=== PATIENT | male | born 1960 | race Two or more races ===

== ENCOUNTER 2018-12-11 13:19 | Inpatient (IN) | payer OTHER ==
[~2018-12-11] VITALS: Ht 170.2 cm; Wt 88.1 kg
[~2018-12-11 13:19] MED LIST: AMLODIPINE BESYL5 MG ORAL; LIPITOR20 MG ORAL; NKM; PROTONIX40 MG ORAL; VITAMIN B-1100 MG ORAL
[2018-12-11 13:24] VITALS: BP 151/84
--- NOTE | 2018-12-11 13:24 | NUR ---
ED Nurse Note: Patient walked into ED accompanied by spouse c/o upper abdominal pain for the past 3 days, patient states that hes had atleast 3 episodes of vomitting, states that it might be gas. patient is alert and oriented x4, EKG showed sinus tachycardia at 115 per minute, Labs sent down, IV 20 gauge started on left AC gauge, patient was also given oral contrast
[2018-12-11 13:30] VITALS: BP 142/84
[2018-12-11] MEDS ORDERED: DiphenhydrAMINE 50mg/ml Inj IVP ONE (13:45)
[2018-12-11] MEDS ORDERED: Isovue-300 100ml vial INJ PRN (13:45)
[2018-12-11] MEDS ORDERED: Metoclopramide 10mg/2ml Inj IVP ONE (13:45)
--- NOTE | 2018-12-11 13:51 | Emergency Room Report ---
History of Present Illness General Chief Complaint: Abdominal Pain Source: Patient (Blayne Thomas MD) Present Illness HPI The patient presents with several weeks of abdominal pain and distention. This started with a bout of constipation several weeks ago. It finally resolved with prune juice. From straining there was a little bit of blood around the stool. He said he stopped eating solid food and his belly seemed to improve. He has lost weight. He started eating again there was more abdominal distention. Right now the pain is 6/10 when he lays down. It is worse when sitting or standing. 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 His liver is large and might have steatosis. He did not have an official reading. The patient denies any medical problems. He has not seen a doctor for a while. He does drink alcohol and his last drink was yesterday. Patient denies chest pain. He has had a nonproductive cough which seemed to improve about a week ago. Admitted 2014 for malignant HTN and alcoholism. 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 Hx Cancer: No Hx Gastrointestinal Problems: No Hx Neurological Problems: No (Blayne Thomas MD) Review of Systems All Other Systems: negative except mentioned in HPI (Blayne Thomas MD) Physical Exam Vital Signs Date Time Temp Pulse Resp B/P (MAP) Pulse Ox O2 Delivery O2 Flow Rate FiO2 12/11/18 13:22 98.4 119 20 151/84 (106) 95 Room Air Sp02 EP Interpretation: reviewed, normal General Appearance: alert, GCS 15, non-toxic, mild distress Head: normocephalic Eyes: bilateral eye normal inspection, bilateral eye PERRL, bilateral eye EOMI ENT: moist mucus membranes Neck: supple Respiratory: lungs clear, normal breath sounds Cardiovascular #1: no edema, tachycardia Cardiovascular #2: 2+ radial (R) Gastrointestinal: no mass, no guarding, no rebound, distended, tenderness - Diffuse, other - Fluid with, decreased bowel sounds Genitourinary: no CVA tenderness Musculoskeletal: back normal, gait/station normal, normal range of motion Neurologic: alert, oriented x3, motor strength/tone normal, SLR negative, other - No asterixis Psychiatric: anxious Skin: normal inspection, warm/dry (Blayne Thomas MD) Medical Decision Making Diagnostic Impression: Primary Impression: Abdominal pain Qualified Codes: R10.84 - Generalized abdominal pain Additional Impressions: Elevated lactic acid level Elevated liver enzymes Leukocytosis Qualified Codes: D72.829 - Elevated white blood cell count, unspecified UTI (urinary tract infection) Qualified Codes: N39.0 - Urinary tract infection, site not specified Ascites Qualified Codes: R18.8 - Other ascites Alcoholism ER Course The patient presents with abdominal distention and pain. Differential includes ascites, diverticulitis, bowel obstruction, pancreatitis, hepatitis, UTI amongst others. He will be evaluated with EKG, chest x-ray and CT of the abdomen and pelvis with contrast. He is tachycardic at this time and appears intravascularly volume depleted. This may be in part due to withdrawal. EKG without injury. Chest x-ray no infiltrates however nodularity at the right middle lobe. Labs with elevated white count. Also abnormal liver function tests. INR is normal. Elevated lactic acid. Patient with transient hypoxia after Ativan however awakened and oxygen saturation remained normal. CT scan was ordered and was pending. Patient signed out to Dr. Rodriguez. I discussed the need for a low threshold for starting antibiotics. Laboratory Tests Test 12/11/18 13:26 12/11/18 13:59 12/11/18 15:05 12/11/18 21:31 Urine Color Yellow Urine Appearance Very cloudy Urine pH 5 (4.5-8.0) Urine Specific [place] 1.025 (1.005-1.035) Urine Protein 2+ (NEGATIVE) H Urine Glucose (UA) Negative (NEGATIVE) Urine Ketones 2+ (NEGATIVE) H Urine Blood 2+ (NEGATIVE) H Urine Nitrite Negative (NEGATIVE) Urine Bilirubin 2+ (NEGATIVE) H Urine Ictotest Negative (NEGATIVE) Urine Urobilinogen 12 MG/DL (0.0-1.0) H Urine Leukocyte Esterase 1+ (NEGATIVE) H Urine RBC 2-4 /HPF (0 - 0) H Urine WBC 2-4 /HPF (0 - 0) Urine Squamous Epithelial Cells Few /LPF (NONE/OCC) Urine Amorphous Sediment Many /LPF (NONE) H Urine Bacteria Many /HPF (NONE) H Urine Opiates Screen Negative (NEGATIVE) Urine Barbiturates Screen Negative (NEGATIVE) Phencyclidine (PCP) Screen Negative (NEGATIVE) Urine Amphetamines Screen Negative (NEGATIVE) Urine Benzodiazepines Screen Negative (NEGATIVE) Urine Cocaine Screen Negative (NEGATIVE) Urine Marijuana (THC) Screen Negative (NEGATIVE) White Blood Count 12.6 K/UL (4.8-10.8) H Red Blood Count 3.48 M/UL (4.70-6.10) L Hemoglobin 11.9 G/DL (14.2-18.0) L Hematocrit 35.6 % (42.0-52.0) L Mean Corpuscular Volume 102 FL (80-99) H Mean Corpuscular Hemoglobin 34.2 PG (27.0-31.0) H Mean Corpuscular Hemoglobin Concent 33.5 G/DL (32.0-36.0) Red Cell Distribution Width 12.8 % (11.6-14.8) Platelet Count 320 K/UL (150-450) Mean Platelet Volume 9.6 FL (6.5-10.1) Neutrophils (%) (Auto) 83.0 % (45.0-75.0) H Lymphocytes (%) (Auto) 7.3 % (20.0-45.0) L Monocytes (%) (Auto) 8.8 % (1.0-10.0) Eosinophils (%) (Auto) 0.1 % (0.0-3.0) Basophils (%) (Auto) 0.7 % (0.0-2.0) Neutrophils % (Manual) Pending Lymphocytes % (Manual) Pending Platelet Estimate Pending Platelet Morphology Pending Prothrombin Time 12.7 SEC (9.30-11.50) H Prothrombin Time INR 1.2 (0.9-1.1) H PTT 32 SEC (23-33) Sodium Level 136 MMOL/L (136-145) Potassium Level 3.8 MMOL/L (3.5-5.1) Chloride Level 94 MMOL/L (98-107) L Carbon Dioxide Level 31 MMOL/L (21-32) Anion Gap 11 mmol/L (5-15) Blood Urea Nitrogen 11 mg/dL (7-18) Creatinine 0.9 MG/DL (0.55-1.30) Estimate Glomerular Filtration Rate > 60 mL/min (>60) Glucose Level 145 MG/DL (74-106) H Lactic Acid Level 2.90 mmol/L (0.4-2.0) H 2.40 mmol/L (0.66-2.22) H Calcium Level 8.9 MG/DL (8.5-10.1) Magnesium Level 1.6 MG/DL (1.8-2.4) L Total Bilirubin 1.9 MG/DL (0.2-1.0) H Pending Direct Bilirubin 1.2 MG/DL (0.0-0.3) H Aspartate Amino Transferase (AST) 123 U/L (15-37) H Alanine Aminotransferase (ALT) 24 U/L (12-78) Alkaline Phosphatase 340 U/L (46-116) H Total Creatine Kinase 25 U/L (26-308) L Troponin I 0.000 ng/mL (0.000-0.056) Total Protein 8.1 G/DL (6.4-8.2) Albumin 2.2 G/DL (3.4-5.0) L Globulin 5.9 g/dL Albumin/Globulin Ratio 0.4 (1.0-2.7) L Lipase 215 U/L (73-393) Serum Alcohol < 3 mg/dL Reticulocyte Count Pending PTT Mixing Study Pending APTT Patient/Control Mix Pending Mix PTT Incubation Time Pending Mix PTT Normal/Saline 1:1 Immediate Pending Thrombin Time Normal Plasma Pending Iron Level Pending Unsaturated Iron Binding Pending Ferritin Pending Vitamin B12 Level Pending Folate Pending Hepatitis A IgM Antibody Pending Hepatitis B Surface Antigen Pending Hepatitis B Core IgM Antibody Pending Hepatitis C Antibody Pending (Blayne Thomas MD) ER Course Hospital Course 58 yo M presents with abd pain and distension Clinical course Patient initially seen and evaluated by Dr. Thomas; please see his note for full history and physical Labs - noted leukocytosis, Hb/Hct stable, LFTS elevated, coags ok, UA + bacteria CT abdomen and pelvis - hepatosplenomegaly, ascites given abx in ED Case discussed with Dr. Carmen and he agreed to accept the patient to his service for further care and support I feel this is a highly complex case requiring extensive working including EKG/ Rhythm strip, Xray/CT/US, Blood/urine lab work, repeat exams while in ED, and administration of strong opiates/narcotics for pain control, admission to hospital or close patient follow up. Diagnosis - abd pain, elevated lactic acid level, elevated liver enzymes, leukocytosis, UTI, ascites Patient admitted to floor in serious condition Labs Test 12/11/18 13:26 12/11/18 13:59 12/11/18 15:05 Urine Color Yellow Urine Appearance Very cloudy Urine pH 5 (4.5-8.0) Urine Specific [place] 1.025 (1.005-1.035) Urine Protein 2+ (NEGATIVE) Urine Glucose (UA) Negative (NEGATIVE) Urine Ketones 2+ (NEGATIVE) Urine Blood 2+ (NEGATIVE) Urine Nitrite Negative (NEGATIVE) Urine Bilirubin 2+ (NEGATIVE) Urine Ictotest Negative (NEGATIVE) Urine Urobilinogen 12 MG/DL (0.0-1.0) Urine Leukocyte Esterase 1+ (NEGATIVE) Urine RBC 2-4 /HPF (0 - 0) Urine WBC 2-4 /HPF (0 - 0) Urine Squamous Epithelial Cells Few /LPF (NONE/OCC) Urine Amorphous Sediment Many /LPF (NONE) Urine Bacteria Many /HPF (NONE) Urine Opiates Screen Negative (NEGATIVE) Urine Barbiturates Screen Negative (NEGATIVE) Phencyclidine (PCP) Screen Negative (NEGATIVE) Urine Amphetamines Screen Negative (NEGATIVE) Urine Benzodiazepines Screen Negative (NEGATIVE) Urine Cocaine Screen Negative (NEGATIVE) Urine Marijuana (THC) Screen Negative (NEGATIVE) White Blood Count 12.6 K/UL (4.8-10.8) Red Blood Count 3.48 M/UL (4.70-6.10) Hemoglobin 11.9 G/DL (14.2-18.0) Hematocrit 35.6 % (42.0-52.0) Mean Corpuscular Volume 102 FL (80-99) Mean Corpuscular Hemoglobin 34.2 PG (27.0-31.0) Mean Corpuscular Hemoglobin Concent 33.5 G/DL (32.0-36.0) Red Cell Distribution Width 12.8 % (11.6-14.8) Platelet Count 320 K/UL (150-450) Mean Platelet Volume 9.6 FL (6.5-10.1) Neutrophils (%) (Auto) 83.0 % (45.0-75.0) Lymphocytes (%) (Auto) 7.3 % (20.0-45.0) Monocytes (%) (Auto) 8.8 % (1.0-10.0) Eosinophils (%) (Auto) 0.1 % (0.0-3.0) Basophils (%) (Auto) 0.7 % (0.0-2.0) Prothrombin Time 12.7 SEC (9.30-11.50) Prothromb Time International Ratio 1.2 (0.9-1.1) Activated Partial Thromboplast Time 32 SEC (23-33) Sodium Level 136 MMOL/L (136-145) Potassium Level 3.8 MMOL/L (3.5-5.1) Chloride Level 94 MMOL/L (98-107) Carbon Dioxide Level 31 MMOL/L (21-32) Anion Gap 11 mmol/L (5-15) Blood Urea Nitrogen 11 mg/dL (7-18) Creatinine 0.9 MG/DL (0.55-1.30) Estimat Glomerular Filtration Rate > 60 mL/min (>60) Glucose Level 145 MG/DL (74-106) Lactic Acid Level 2.90 mmol/L (0.4-2.0) 2.40 mmol/L (0.66-2.22) Calcium Level 8.9 MG/DL (8.5-10.1) Magnesium Level 1.6 MG/DL (1.8-2.4) Total Bilirubin 1.9 MG/DL (0.2-1.0) Direct Bilirubin 1.2 MG/DL (0.0-0.3) Aspartate Amino Transf (AST/SGOT) 123 U/L (15-37) Alanine Aminotransferase (ALT/SGPT) 24 U/L (12-78) Alkaline Phosphatase 340 U/L (46-116) Total Creatine Kinase 25 U/L (26-308) Troponin I 0.000 ng/mL (0.000-0.056) Total Protein 8.1 G/DL (6.4-8.2) Albumin 2.2 G/DL (3.4-5.0) Globulin 5.9 g/dL Albumin/Globulin Ratio 0.4 (1.0-2.7) Lipase 215 U/L (73-393) Serum Alcohol < 3 mg/dL (James Rodriguez MD) EKG Diagnostic Results Rate: tachycardiac Rhythm: NSR ST Segments: no acute changes - lae (Blayne Thomas MD) Rhythm Strip Diag. Results EP Interpretation: yes Rhythm: no PVC's, no ectopy, other - ST (Blayne Thomas MD) Chest X-Ray Diagnostic Results Chest X-Ray Diagnostic Results : Chest X-Ray Ordered: Yes # of Views/Limited/Complete: 1 View Indication: Other EP Interpretation: Yes Interpretation: no effusion, no pneumothorax, other - R nodule Impression: Other Electronically Signed by: Electronically signed by Blayne Thomas MD (Blayne Thomas MD) Chest X-Ray Diagnostic Results : Chest X-Ray Ordered: Yes # of Views/Limited/Complete: 1 View Indication: Other EP Interpretation: Yes Interpretation: no consolidation, no effusion, no pneumothorax, no acute cardiopulmonary disease Impression: No acute disease Electronically Signed by: electronically signed by James Rodriguez MD (James Rodriguez MD) CT/MRI/US Diagnostic Results CT/MRI/US Diagnostic Results : Imaging Test Ordered: abd pelvis Impression pending - signed out (Blayne Thomas MD) CT/MRI/US Diagnostic Results : Imaging Test Ordered: CT A/P Impression Findings: There is basilar atelectasis. There is hepatosplenomegaly demonstrated. There is ascites. Gallbladder is unremarkable. Portal vein enhances normally. There is no hydronephrosis. There are small celiac nodes. Bowel gas pattern is nonobstructive. Bladder is unremarkable. Aortoiliac calcifications are present. The appendix is normal. (James Rodriguez MD) Last Vital Signs Date Time Temp Pulse Resp B/P (MAP) Pulse Ox O2 Delivery O2 Flow Rate FiO2 12/11/18 19:03 98 12/11/18 18:28 Room Air 12/11/18 17:53 98.7 20 111/72 95 Status: improved (Blayne Thomas MD) Status: improved (James Rodriguez MD) Disposition: ADMITTED INPATIENT Condition: Serious Blayne Thomas MD Dec 11, 2018 13:51 James Rodriguez MD Dec 11, 2018 17:11
[2018-12-11] MEDS ORDERED: LORazepam Inj 2mg/ml 1ml IV ONE (14:00)
[2018-12-11 14:02] LABS: APPEARANCE,URINE VERY CLOUDY; BILIRUBIN, URINE 2+ (NEGATIVE); GLUCOSE, URINE (UA) NEGATIVE (NEGATIVE); KETONES,URINE 2+ (NEGATIVE); LEUKOCYTE ESTERASE ,URINE 1+ (NEGATIVE); NITRITE,URINE NEGATIVE (NEGATIVE); PH,URINE 5 (4.5-8.0); PROTEIN,URINE 2+ (NEGATIVE); UROBILINOGEN,URINE 12 MG/DL (0.0-1.0)
[2018-12-11 14:04] LABS: COLOR,URINE YELLOW
[2018-12-11 14:18] LABS: BASOPHILS % (AUTO) 0.7 % (0.0-2.0); EOSINOPHILS % (AUTO) 0.1 % (0.0-3.0); HEMATOCRIT 35.6 % (42.0-52.0); HEMOGLOBIN 11.9 G/DL (14.2-18.0); LYMPHOCYTES % (AUTO) 7.3 % (20.0-45.0); MEAN CORPUSCULAR VOLUME 102 FL (80-99); MONOCYTES % (AUTO) 8.8 % (1.0-10.0); PLATELET COUNT 320 K/UL (150-450); RED BLOOD COUNT 3.48 M/UL (4.70-6.10); RED CELL DISTRIBUTION WIDTH 12.8 % (11.6-14.8); WHITE BLOOD COUNT 12.6 K/UL (4.8-10.8)
[2018-12-11 14:21] LABS: INR 1.2 (0.9-1.1)
--- NOTE | 2018-12-11 14:24 | Diagnostic Imaging Report ---
Indication: Dyspnea Comparison: 11/15/2012 A single view chest radiograph was obtained. Findings: Cardiomediastinal appearance is within normal limits for age. The lungs are clear. Pulmonary vascularity is appropriate. The diaphragmatic contour is smooth and costophrenic angles are sharp. No pleural effusions are identified. The bones are unremarkable. Impression: No acute findings
[2018-12-11 14:35] LABS: ANION GAP 11 mmol/L (5-15); BLOOD UREA NITROGEN 11 mg/dL (7-18); CALCIUM 8.9 MG/DL (8.5-10.1); CARBON DIOXIDE 31 MMOL/L (21-32); CHLORIDE 94 MMOL/L (98-107); CREATININE 0.9 MG/DL (0.55-1.30); POTASSIUM 3.8 MMOL/L (3.5-5.1); SODIUM 136 MMOL/L (136-145)
[2018-12-11 14:48] LABS: ALANINE AMINOTRANSFERASE 24 U/L (12-78); ALBUMIN 2.2 G/DL (3.4-5.0); ALBUMIN/GLOBULIN RATIO 0.4 (1.0-2.7); ALKALINE PHOSPHATASE 340 U/L (46-116); ASPARTATE AMINO TRANSFERASE 123 U/L (15-37); BILIRUBIN,TOTAL 1.9 MG/DL (0.2-1.0); CREATINE KINASE 25 U/L (26-308)
--- NOTE | 2018-12-11 14:53 | NUR ---
ED Nurse Note: Patient sleeping calmly in bed, at no distress at this time
[2018-12-11 15:00] LABS: BILIRUBIN,DIRECT 1.2 MG/DL (0.0-0.3)
--- NOTE | 2018-12-11 15:11 | NUR ---
ED Nurse Note: Lactic reflex sent down
[2018-12-11 16:03] VITALS: BP 116/76
--- NOTE | 2018-12-11 16:54 | Diagnostic Imaging Report ---
Indication: Abdominal pain Technique: Continuous helical transaxial imaging of the abdomen and pelvis was obtained from the lung bases to the pubic symphysis during intravenous contrast administration. Coronal 2-D reformats were also obtained. Study obtained in a Siemens sensation [address] Automatic Exposure Control was utilized. Total Dose length Product (DLP): 923.[address] Dose Index Volume (CTDIvol): 15.23 mGy Comparison: None Findings: There is basilar atelectasis. There is hepatosplenomegaly demonstrated. There is ascites. Gallbladder is unremarkable. Portal vein enhances normally. There is no hydronephrosis. There are small celiac nodes. Bowel gas pattern is nonobstructive. Bladder is unremarkable. Aortoiliac calcifications are present. The appendix is normal. IMPRESSION: Hepatosplenomegaly. Mild ascites. Atherosclerotic vascular disease Small upper abdominal lymph nodes in the celiac axis, nonspecific in nature. Mild basal atelectasis The CT scanner at [facility] is accredited by the [employer] and the scans are performed using dose optimization techniques as appropriate to a performed exam including Automatic Exposure control.
[2018-12-11] MEDS ORDERED: cefTRIAXone 1 GM in NS 55 ML IVPB ONE (17:00)
[2018-12-11 17:39] VITALS: BP 123/76
[2018-12-11] MEDS ORDERED: NKM (17:46)
--- NOTE | 2018-12-11 18:15 | NUR ---
ADMISSION NOTES: Md Nguyen made aware of admission, waiting on admitting orders.
--- NOTE | 2018-12-11 19:29 | NUR ---
HAND-OFF: Report given to Alicia NICOLE.
--- NOTE | 2018-12-11 19:30 | NUR ---
NURSE NOTES: Received bedside report from BONNIE Garcia.Patient stable,A&Ox4,ST on property assessment monitor,tolerated r/air well,NPO d/t abd pain and procedure in a morning,BS active in all quadrants,IV asymptomatic,intact,on L AC 20G running with 1/2 NS @ 50ml/hr,bed secured in a low safety position,call light within a reach,pt ambulatory stable, @ bedside,will continue to monitor and follow POC.
[2018-12-11 20:00] VITALS: BP 113/73
[2018-12-11 22:11] LABS: BILIRUBIN,TOTAL 1.4 MG/DL (0.2-1.0); FERRITIN 485 NG/ML (8-388)
[2018-12-11 22:29] LABS: % IRON SATURATION 33 % (15-50); IRON 34 ug/dL (50-175); TOTAL IRON BINDING CAPACITY 103 ug/dL (250-450)
[2018-12-11 22:42] LABS: BILIRUBIN,DIRECT 0.9 MG/DL (0.0-0.3)
[2018-12-12] VITALS: BP 106/75
[2018-12-12 04:00] VITALS: BP 119/68
--- NOTE | 2018-12-12 07:12 | NUR ---
HAND-OFF: Report given to REDDY Guy.Patient stable,sleeping.
--- NOTE | 2018-12-12 07:15 | NUR ---
NURSE NOTES: Pt received from BONNIE Vargas alert and oriented x4 with no acute s/s of distress noted. Iv site asymptomatic and patent. Bed in lowest position, call light and belongings within reach.
[2018-12-12 08:00] VITALS: BP 128/78
--- NOTE | 2018-12-12 08:39 | Consultation ---
History of Present Illness General Date patient seen: Dec 12, 2018 Chief Complaint: Abdominal Pain Present Illness Allergies: Coded Allergies: No Known Allergies (Unverified , 11/15/12) Medication History Scheduled No Known Medications* (NKM - No Known Medications*), 0 ., (Reported) No Known Medications* (NKM - No Known Medications*), 0 ., (Reported) Pantoprazole* (Protonix*), 40 MG ORAL DAILY, (Reported) Thiamine Hcl* (Vitamin B-1*), 100 MG ORAL DAILY, (Reported) Discontinued Medications Amlodipine Besylate* (Amlodipine Besylate*), 5 MG ORAL BID, (Reported) Discontinued Reason: Pt stopped taking med Atorvastatin Calcium* (Lipitor*), 20 MG ORAL BEDTIME, (Reported) Discontinued Reason: Pt stopped taking med Patient History Healthcare decision maker Becki partner Resuscitation status Full Code Advanced Directive on File No Physical Exam Last 24 Hour Vital Signs Date Time Temp Pulse Resp B/P (MAP) Pulse Ox O2 Delivery O2 Flow Rate FiO2 12/12/18 04:00 97.4 91 19 119/68 (85) 97 12/12/18 03:27 91 12/12/18 00:00 97.9 96 18 106/75 (85) 97 12/11/18 23:39 93 12/11/18 21:00 Room Air 12/11/18 20:00 98.9 98 18 113/73 (86) 98 12/11/18 19:03 98 12/11/18 18:28 Room Air 12/11/18 17:53 98.7 102 20 111/72 95 Room Air 12/11/18 17:39 98.7 102 20 123/76 95 Room Air 12/11/18 16:03 98.7 105 20 116/76 95 Room Air 12/11/18 13:30 98.4 110 20 142/84 95 Room Air 12/11/18 13:24 98.4 110 20 151/84 95 Room Air 12/11/18 13:24 119 20 Room Air 12/11/18 13:22 98.4 119 20 151/84 (106) 95 Room Air Intake and Output 12/11/18 12/12/18 18:59 06:59 Intake Total 2000 ml 540 ml Balance 2000 ml 540 ml Intake IV Total 2000 ml 540 ml # Voids 1 # Bowel Movements 1 Laboratory Tests Test 12/11/18 13:26 12/11/18 13:59 12/11/18 15:05 12/11/18 21:31 Urine Color Yellow Urine Appearance Very cloudy Urine pH 5 (4.5-8.0) Urine Specific [place] 1.025 (1.005-1.035) Urine Protein 2+ (NEGATIVE) H Urine Glucose (UA) Negative (NEGATIVE) Urine Ketones 2+ (NEGATIVE) H Urine Blood 2+ (NEGATIVE) H Urine Nitrite Negative (NEGATIVE) Urine Bilirubin 2+ (NEGATIVE) H Urine Ictotest Negative (NEGATIVE) Urine Urobilinogen 12 MG/DL (0.0-1.0) H Urine Leukocyte Esterase 1+ (NEGATIVE) H Urine RBC 2-4 /HPF (0 - 0) H Urine WBC 2-4 /HPF (0 - 0) Urine Squamous Epithelial Cells Few /LPF (NONE/OCC) Urine Amorphous Sediment Many /LPF (NONE) H Urine Bacteria Many /HPF (NONE) H Urine Opiates Screen Negative (NEGATIVE) Urine Barbiturates Screen Negative (NEGATIVE) Phencyclidine (PCP) Screen Negative (NEGATIVE) Urine Amphetamines Screen Negative (NEGATIVE) Urine Benzodiazepines Screen Negative (NEGATIVE) Urine Cocaine Screen Negative (NEGATIVE) Urine Marijuana (THC) Screen Negative (NEGATIVE) White Blood Count 12.6 K/UL (4.8-10.8) H Red Blood Count 3.48 M/UL (4.70-6.10) L Hemoglobin 11.9 G/DL (14.2-18.0) L Hematocrit 35.6 % (42.0-52.0) L Mean Corpuscular Volume 102 FL (80-99) H Mean Corpuscular Hemoglobin 34.2 PG (27.0-31.0) H Mean Corpuscular Hemoglobin Concent 33.5 G/DL (32.0-36.0) Red Cell Distribution Width 12.8 % (11.6-14.8) Platelet Count 320 K/UL (150-450) Mean Platelet Volume 9.6 FL (6.5-10.1) Neutrophils (%) (Auto) 83.0 % (45.0-75.0) H Lymphocytes (%) (Auto) 7.3 % (20.0-45.0) L Monocytes (%) (Auto) 8.8 % (1.0-10.0) Eosinophils (%) (Auto) 0.1 % (0.0-3.0) Basophils (%) (Auto) 0.7 % (0.0-2.0) Differential Total Cells Counted 100 Neutrophils % (Manual) 86 % (45-75) H Lymphocytes % (Manual) 7 % (20-45) L Monocytes % (Manual) 7 % (1-10) Eosinophils % (Manual) 0 % (0-3) Basophils % (Manual) 0 % (0-2) Band Neutrophils 0 % (0-8) Platelet Estimate Adequate Platelet Morphology Normal Red Blood Cell Morphology Normal Prothrombin Time 12.7 SEC (9.30-11.50) H Prothromb Time International Ratio 1.2 (0.9-1.1) H Activated Partial Thromboplast Time 32 SEC (23-33) Sodium Level 136 MMOL/L (136-145) Potassium Level 3.8 MMOL/L (3.5-5.1) Chloride Level 94 MMOL/L (98-107) L Carbon Dioxide Level 31 MMOL/L (21-32) Anion Gap 11 mmol/L (5-15) Blood Urea Nitrogen 11 mg/dL (7-18) Creatinine 0.9 MG/DL (0.55-1.30) Estimat Glomerular Filtration Rate > 60 mL/min (>60) Glucose Level 145 MG/DL (74-106) H Lactic Acid Level 2.90 mmol/L (0.4-2.0) H 2.40 mmol/L (0.66-2.22) H Calcium Level 8.9 MG/DL (8.5-10.1) Magnesium Level 1.6 MG/DL (1.8-2.4) L Total Bilirubin 1.9 MG/DL (0.2-1.0) H 1.4 MG/DL (0.2-1.0) H Direct Bilirubin 1.2 MG/DL (0.0-0.3) H 0.9 MG/DL (0.0-0.3) H Aspartate Amino Transf (AST/SGOT) 123 U/L (15-37) H Alanine Aminotransferase (ALT/SGPT) 24 U/L (12-78) Alkaline Phosphatase 340 U/L (46-116) H Total Creatine Kinase 25 U/L (26-308) L Troponin I 0.000 ng/mL (0.000-0.056) Total Protein 8.1 G/DL (6.4-8.2) Albumin 2.2 G/DL (3.4-5.0) L Globulin 5.9 g/dL Albumin/Globulin Ratio 0.4 (1.0-2.7) L Lipase 215 U/L (73-393) Serum Alcohol < 3 mg/dL Reticulocyte Count 1.7 % (0.5-2.0) PTT Mixing Study Pending APTT Patient/Control Mix Pending Mix PTT Incubation Time Pending Mix PTT Normal/Saline 1:1 Immediate Pending Thrombin Time Normal Plasma Pending Iron Level 34 ug/dL (50-175) L Total Iron Binding Capacity 103 ug/dL (250-450) L Percent Iron Saturation 33 % (15-50) Unsaturated Iron Binding 69 ug/dL (112-346) L Ferritin 485 NG/ML (8-388) H Vitamin B12 Level 436 PG/ML (193-986) Folate 2.8 NG/ML (8.6-58.9) L Hepatitis A IgM Antibody Pending Hepatitis B Surface Antigen Pending Hepatitis B Core IgM Antibody Pending Hepatitis C Antibody Pending Height (Feet): 5 Height (Inches): 7.00 Weight (Pounds): 194 Medications Current Medications Medications (Trade) Dose Ordered Sig/Jose Ramon Route PRN Reason Start Time Stop Time Status Last Admin Dose Admin Barium Sulfate (Readi-Cat 2) 450 ml NOW PRN ORAL Radiology Procedure 12/11/18 13:45 12/13/18 13:41 Iopamidol (Isovue-300 100ml) 100 ml NOW PRN INJ Radiology Procedure 12/11/18 13:45 12/13/18 13:44 Ondansetron HCl (Zofran) 4 mg Q6H PRN IVP Nausea & Vomiting 12/11/18 19:00 01/10/19 18:59 Sodium Chloride 1,000 ml @ 50 mls/hr Q20H IV 12/11/18 19:15 01/10/19 19:14 12/11/18 19:11 Assessment/Plan Assessment/Plan: (1) Abdominal pain (2) Ascites (3) Liver disease, cirrhosis (4) History of alcoholism seen dictated Blu Ireland Dec 12, 2018 08:39
[2018-12-12] MEDS ORDERED: traMADol 50mg tab ORAL PRN (09:00)
--- NOTE | 2018-12-12 10:36 | General Progress Note ---
Assessment/Plan Assessment/Plan: ETOH abuse folate deficiency macrocytic anemia hepatomegaly ascites abd us folate supplement EGD and colonoscopy tomorrow Subjective ROS Limited/Unobtainable: Yes Allergies: Coded Allergies: No Known Allergies (Unverified , 11/15/12) Objective Last 24 Hour Vital Signs Date Time Temp Pulse Resp B/P (MAP) Pulse Ox O2 Delivery O2 Flow Rate FiO2 12/12/18 04:00 97.4 91 19 119/68 (85) 97 12/12/18 03:27 91 12/12/18 00:00 97.9 96 18 106/75 (85) 97 12/11/18 23:39 93 12/11/18 21:00 Room Air 12/11/18 20:00 98.9 98 18 113/73 (86) 98 12/11/18 19:03 98 12/11/18 18:28 Room Air 12/11/18 17:53 98.7 102 20 111/72 95 Room Air 12/11/18 17:39 98.7 102 20 123/76 95 Room Air 12/11/18 16:03 98.7 105 20 116/76 95 Room Air 12/11/18 13:30 98.4 110 20 142/84 95 Room Air 12/11/18 13:24 98.4 110 20 151/84 95 Room Air 12/11/18 13:24 119 20 Room Air 12/11/18 13:22 98.4 119 20 151/84 (106) 95 Room Air Intake and Output 12/11/18 12/12/18 18:59 06:59 Intake Total 2000 ml 540 ml Balance 2000 ml 540 ml Intake IV Total 2000 ml 540 ml # Voids 1 # Bowel Movements 1 Laboratory Tests 12/11/18 13:26: Urine Color Yellow, Urine Appearance Very cloudy, Urine pH 5, Urine Specific [place] 1.025, Urine Protein 2+H, Urine Glucose (UA) Negative, Urine Ketones 2+H , Urine Blood 2+H, Urine Nitrite Negative, Urine Bilirubin 2+H, Urine Ictotest Negative, Urine Urobilinogen 12H, Urine Leukocyte Esterase 1+H, Urine RBC 2-4H, Urine WBC 2-4, Urine Squamous Epithelial Cells Few, Urine Amorphous Sediment ManyH, Urine Bacteria ManyH, Urine Opiates Screen Negative, Urine Barbiturates Screen Negative, Phencyclidine (PCP) Screen Negative, Urine Amphetamines Screen Negative, Urine Benzodiazepines Screen Negative, Urine Cocaine Screen Negative, Urine Marijuana (THC) Screen Negative 12/11/18 13:59: White Blood Count 12.6H, Red Blood Count 3.48L, Hemoglobin 11.9L, Hematocrit 35.6L, Mean Corpuscular Volume 102H, Mean Corpuscular Hemoglobin 34.2H, Mean Corpuscular Hemoglobin Concent 33.5, Red Cell Distribution Width 12.8, Platelet Count 320, Mean Platelet Volume 9.6, Neutrophils (%) (Auto) 83.0H, Lymphocytes ( %) (Auto) 7.3L, Monocytes (%) (Auto) 8.8, Eosinophils (%) (Auto) 0.1, Basophils (%) (Auto) 0.7, Differential Total Cells Counted 100, Neutrophils % (Manual) 86H , Lymphocytes % (Manual) 7L, Monocytes % (Manual) 7, Eosinophils % (Manual) 0, Basophils % (Manual) 0, Band Neutrophils 0, Platelet Estimate Adequate, Platelet Morphology Normal, Red Blood Cell Morphology Normal, Prothrombin Time 12.7H, Prothromb Time International Ratio 1.2H, Activated Partial Thromboplast Time 32, Sodium Level 136, Potassium Level 3.8, Chloride Level 94L, Carbon Dioxide Level 31, Anion Gap 11, Blood Urea Nitrogen 11, Creatinine 0.9, Estimat Glomerular Filtration Rate > 60, Glucose Level 145H, Lactic Acid Level 2.90H, Calcium Level 8.9, Magnesium Level 1.6L, Total Bilirubin 1.9H, Direct Bilirubin 1.2H, Aspartate Amino Transf (AST/SGOT) 123H, Alanine Aminotransferase (ALT/SGPT ) 24, Alkaline Phosphatase 340H, Total Creatine Kinase 25L, Troponin I 0.000, Total Protein 8.1, Albumin 2.2L, Globulin 5.9, Albumin/Globulin Ratio 0.4L, Lipase 215, Serum Alcohol < 3 12/11/18 15:05: Lactic Acid Level 2.40H 12/11/18 21:31: Total Bilirubin 1.4H, Direct Bilirubin 0.9H, Reticulocyte Count 1.7, PTT Mixing Study [Pending], APTT Patient/Control Mix [Pending], Mix PTT Incubation Time [ Pending], Mix PTT Normal/Saline 1:1 Immediate [Pending], Thrombin Time Normal Plasma [Pending], Iron Level 34L, Total Iron Binding Capacity 103L, Percent Iron Saturation 33, Unsaturated Iron Binding 69L, Ferritin 485H, Vitamin B12 Level 436, Folate 2.8L, Hepatitis A IgM Antibody [Pending], Hepatitis B Surface Antigen [Pending], Hepatitis B Core IgM Antibody [Pending], Hepatitis C Antibody [Pending] 12/12/18 06:51: Amylase Level 49 Height (Feet): 5 Height (Inches): 7.00 Weight (Pounds): 194 General Appearance: alert EENT: normal ENT inspection Neck: supple Cardiovascular: normal rate Respiratory/Chest: lungs clear Abdomen: normal bowel sounds, non tender, soft Extremities: non-tender Michael Trujillo MD Dec 12, 2018 10:36
--- NOTE | 2018-12-12 11:35 | NUR ---
NURSE NOTES: Pt signed consent for EGD and colonoscopy in AM, placed in chart.
--- NOTE | 2018-12-12 11:58 | NUR ---
CASE MANAGEMENT:REVIEW 58 YR OLD MALE FROM HOME TO ER CC: ABDOMINAL PAIN,ASCITES, NAUSEA AND VOMITING SI: ABDOMINAL PAIN ALCOHOLISM. ASCITES. UTI 98.5 119 20 151/84 95% ON RA WBC+12.6 H/H-11.9/35.6 MAG-1.6 TBILI+1.9 DBILI+1.2 IS:IV REGLAN IV PEPCID 1L NS BOLUS IV BENADRYL IV ATIVAN CHEST XRAY CT ABD/PELVIS : TO TELEMETRY
[2018-12-12 12:00] VITALS: BP 116/81
--- NOTE | 2018-12-12 12:36 | Diagnostic Imaging Report ---
Indication: Abnormal liver function tests Technique: Grayscale and duplex Doppler imaging of the abdomen performed. Comparison: None Findings: The liver is enlarged measuring 21 cm. There is a suggestion of mild surface nodularity which is a sign of chronic disease. These correlate clinically in this regard. Doppler interrogation of the main portal vein shows patency with hepatopedal, monophasic flow. There is no biliary ductal dilatation identified. The CBD measures 4 mm. The spleen is enlarged measuring 15 cm. There is mild ascites. Gallbladder wall is thickened. No definite stones identified. Sonographic Basurto's sign was negative per technologist. There demonstrated part of the pancreas, aorta and IVC show no definite abnormalities. Both kidneys appear unremarkable. There is no hydronephrosis. IMPRESSION: Hepatosplenomegaly. Mild surface nodularity of the liver suggestive of chronic disease. Please correlate clinically. Thickening of the gallbladder wall, nonspecific. Sonographic Basurto's is negative. Differential considerations include low protein/hypoalbuminemia, acalculus cholecystitis, hepatitis among others. Mild ascites.
--- NOTE | 2018-12-12 13:26 | NUR ---
*-* INSURANCE *-* ALL CLINICALS AND REVIEWS HAVE BEEN FAXED TO: [facility]/ DEPT S/[facility] [place]..NO FURNACE FIRER ASSIGNED AT THIS TIME...PLEASE FAX THE REVIEW & CLINICAL P- [phone] OPT- 3 F- [phone]...REVIEW/CLINICAL
[2018-12-12 16:00] VITALS: BP 113/80
[2018-12-12] MEDS ORDERED: Nulytely 4L ORAL SCH (16:00)
--- NOTE | 2018-12-12 16:15 | Consultation ---
DATE OF CONSULTATION: 12/12/2018 PAIN MANAGEMENT CONSULTATION CONSULTING PHYSICIAN: Paige Paz M.D. REFERRING PHYSICIAN: Greer Carmen M.D. PHYSICIAN INTERMODAL OWNER OPERATOR TRUCK DRIVER: Alphonso Richardson CHIEF COMPLAINT: Abdominal pain. HISTORY OF PRESENT ILLNESS: This is a 58-year-old male, who is being seen on the telemetry floor of [facility] for initial pain management consultation. The patient was admitted under the care of Dr. Carmen with complaints of abdominal pain for the past 4 days. It is off and on pain. It is acute, rating 6/10, describing the pain as a pressure, increased with movement and reports that rest has allowed him to relieve his pain. He stated he had a bout of constipation a few weeks ago, now has abdominal distention. Has a history of hypertension and alcoholism. Upon admission, had an abdominal CT showing mild ascites, hepatosplenomegaly, and is reporting mild pain. Waiting to be seen by the high raw sugar boiler. We were consulted so that the patient would have adequate pain control while here in the hospital. PAST MEDICAL HISTORY: Hypertension. PAST SURGICAL HISTORY: Denies. SOCIAL HISTORY: History of smoking. Drinks alcohol. Denies IV drug abuse. ALLERGIES: No known drug allergies. MEDICATIONS: Denies taking medications as an outpatient. REVIEW OF SYSTEMS: Denies rash, fever, chills, sweating, dizziness, drowsiness, blurred vision, sore throat, or change in weight. No shortness of breath or chest pain. No nausea, vomiting, diarrhea, or blood in the stool or urine. No dysuria. He is complaining of abdominal pain. PHYSICAL EXAMINATION: GENERAL: Alert, awake, oriented. VITAL SIGNS: Blood pressure 119/68, heart rate is 91, oxygen saturation 97%, respiratory rate 19, temperature 97.4 degrees Fahrenheit. HEENT: PERRLA. NECK: Range of motion is full in all directions. No tenderness. No adenopathy. LUNGS: Decreased breath sounds bilaterally. HEART: S1 and S2 regular. ABDOMEN: Distended with tenderness to palpation. BACK: Range of motion is decreased in flexion, extension. EXTREMITIES: Upper and lower extremity range of motion full in all directions. No cyanosis. No clubbing. No edema. Sensory is intact. Reflexes are not obtainable. No adenopathy. ASSESSMENT AND PLAN: This is a 58-year-old male with abdominal pain, ascites, liver disease, possible cirrhosis, history to alcoholism. The patient will be started on tramadol 25 mg tablet every 4 hours as needed for severe pain. He will be seen by high raw sugar boiler. The patient was discussed with Dr. Paz and he concurred. We will follow the patient. Thank you very much for the courtesy of this consultation. Paige Paz M.D. KATHIA Richardson DR: ERIK JOB#: [id number] CC:
--- NOTE | 2018-12-12 16:18 | Consultation ---
History of Present Illness General Chief Complaint: Abdominal Pain Present Illness Allergies: Coded Allergies: No Known Allergies (Unverified , 11/15/12) Medication History Scheduled No Known Medications* (NKM - No Known Medications*), 0 ., (Reported) No Known Medications* (NKM - No Known Medications*), 0 ., (Reported) Pantoprazole* (Protonix*), 40 MG ORAL DAILY, (Reported) Thiamine Hcl* (Vitamin B-1*), 100 MG ORAL DAILY, (Reported) Discontinued Medications Amlodipine Besylate* (Amlodipine Besylate*), 5 MG ORAL BID, (Reported) Discontinued Reason: Pt stopped taking med Atorvastatin Calcium* (Lipitor*), 20 MG ORAL BEDTIME, (Reported) Discontinued Reason: Pt stopped taking med Patient History Healthcare decision maker [place] Resuscitation status Full Code Advanced Directive on File No Physical Exam Last 24 Hour Vital Signs Date Time Temp Pulse Resp B/P (MAP) Pulse Ox O2 Delivery O2 Flow Rate FiO2 12/12/18 12:00 98.4 100 20 116/81 (93) 95 12/12/18 12:00 97 12/12/18 09:00 Room Air 12/12/18 08:00 91 12/12/18 08:00 98.3 106 18 128/78 (95) 96 12/12/18 04:00 97.4 91 19 119/68 (85) 97 12/12/18 03:27 91 12/12/18 00:00 97.9 96 18 106/75 (85) 97 12/11/18 23:39 93 12/11/18 21:00 Room Air 12/11/18 20:00 98.9 98 18 113/73 (86) 98 12/11/18 19:03 98 12/11/18 18:28 Room Air 12/11/18 17:53 98.7 102 20 111/72 95 Room Air 12/11/18 17:39 98.7 102 20 123/76 95 Room Air Intake and Output 12/11/18 12/12/18 19:00 07:00 Intake Total 2000 ml 590 ml Balance 2000 ml 590 ml Intake IV Total 2000 ml 590 ml # Voids 1 # Bowel Movements 1 Laboratory Tests Test 12/11/18 21:31 12/12/18 06:51 Reticulocyte Count 1.7 % (0.5-2.0) PTT Mixing Study Pending APTT Patient/Control Mix Pending Mix PTT Incubation Time Pending Mix PTT Normal/Saline 1:1 Immediate Pending Thrombin Time Normal Plasma Pending Iron Level 34 ug/dL (50-175) L Total Iron Binding Capacity 103 ug/dL (250-450) L Percent Iron Saturation 33 % (15-50) Unsaturated Iron Binding 69 ug/dL (112-346) L Ferritin 485 NG/ML (8-388) H Total Bilirubin 1.4 MG/DL (0.2-1.0) H Direct Bilirubin 0.9 MG/DL (0.0-0.3) H Vitamin B12 Level 436 PG/ML (193-986) Folate 2.8 NG/ML (8.6-58.9) L Hepatitis A IgM Antibody Pending Hepatitis B Surface Antigen Pending Hepatitis B Core IgM Antibody Pending Hepatitis C Antibody Pending Amylase Level 49 U/L (25-115) Height (Feet): 5 Height (Inches): 7.00 Weight (Pounds): 194 Medications Current Medications Medications (Trade) Dose Ordered Sig/Jose Ramon Route PRN Reason Start Time Stop Time Status Last Admin Dose Admin Barium Sulfate (Readi-Cat 2) 450 ml NOW PRN ORAL Radiology Procedure 12/11/18 13:45 12/13/18 13:41 Ceftriaxone Sodium 1 gm/ Dextrose 55 ml @ 110 mls/hr Q24H IVPB 12/13/18 17:00 12/20/18 16:59 Dextrose/ Electrolytes 1,000 ml @ 75 mls/hr [id number] IV 12/12/18 16:00 01/11/19 15:59 Folic Acid (Folate) 1 mg DAILY ORAL 12/13/18 09:00 01/12/19 08:59 Iopamidol (Isovue-300 100ml) 100 ml NOW PRN INJ Radiology Procedure 12/11/18 13:45 12/13/18 13:44 Ondansetron HCl (Zofran) 4 mg Q6H PRN IVP Nausea & Vomiting 12/11/18 19:00 01/10/19 18:59 Polyethylene Glycol/ Electrolytes (Nulytely) 4,000 ml ONCE ORAL 12/12/18 16:00 12/12/18 23:59 Sodium Chloride 1,000 ml @ 50 mls/hr Q20H IV 12/11/18 19:15 01/10/19 19:14 12/11/18 19:11 Tramadol HCl (Ultram) 25 mg Q4H PRN ORAL severe pain 12/12/18 09:00 12/19/18 08:59 Assessment/Plan Assessment/Plan: Hematology Consult REQ MD: Greer Carmen RFC: Pancytopenia, coagulopathy DOS: 12/12/18 HPI 58y old male presents with several weeks of abdominal pain and distention. This started with a bout of constipation several weeks ago. It finally resolved with prune juice. From straining there was a little bit of blood around the stool. He said he stopped eating solid food and his belly seemed to improve. He has lost weight. He started eating again there was more abdominal distention. Right now the pain is 6/10 when he lays down. It is worse when sitting or standing. 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 He performed ultrasound on himself and is not sure if he saw fluid. His liver is large and might have steatosis. He did not have an official reading. The patient denies any medical problems. He has not seen a doctor for a while. He does drink alcohol and his last drink was yesterday. Patient denies chest pain. He has had a nonproductive cough which seemed to improve about a week ago. 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 Hx Cancer: No Hx Gastrointestinal Problems: No Hx Neurological Problems: No Review of Systems: negative except mentioned in HPI PE Last 24 Hour Vital Signs Date Time Temp Pulse Resp B/P (MAP) Pulse Ox O2 Delivery O2 Flow Rate FiO2 12/12/18 12:00 98.4 100 20 116/81 (93) 95 12/12/18 12:00 97 12/12/18 09:00 Room Air 12/12/18 08:00 91 12/12/18 08:00 98.3 106 18 128/78 (95) 96 6/26/19 04:00 97.4 91 19 119/68 (85) 97 12/12/18 03:27 91 12/12/18 00:00 97.9 96 18 106/75 (85) 97 12/11/18 23:39 93 12/11/18 21:00 Room Air 12/11/18 20:00 98.9 98 18 113/73 (86) 98 12/11/18 19:03 98 12/11/18 18:28 Room Air 12/11/18 17:53 98.7 102 20 111/72 95 Room Air 12/11/18 17:39 98.7 102 20 123/76 95 Room Air General Appearance: alert, GCS 15, non-toxic Head: normocephalic Eyes: bilateral eye normal inspection, bilateral eye PERRl ENT: moist mucus membranes Neck: supple Respiratory: lungs clear, normal breath sounds Cardiovascular no edema, tachycardia Gastrointestinal: no mass, no guarding, no rebound, distended, tenderness - Diffuse, other - Fluid with, decreased bowel sounds Genitourinary: no CVA tenderness Musculoskeletal: back normal, gait/station normal, normal range of motion Neurologic: alert, oriented x3, motor strength/tone normal, SLR negative, other - No asterixis Psychiatric: anxious Skin: normal inspection Laboratory Tests Test 12/11/18 13:26 12/11/18 13:59 12/11/18 15:05 12/11/18 21:31 Urine Color Yellow Urine Appearance Very cloudy Urine pH 5 (4.5-8.0) Urine Specific [place] 1.025 (1.005-1.035) Urine Protein 2+ (NEGATIVE) H Urine Glucose (UA) Negative (NEGATIVE) Urine Ketones 2+ (NEGATIVE) H Urine Blood 2+ (NEGATIVE) H Urine Nitrite Negative (NEGATIVE) Urine Bilirubin 2+ (NEGATIVE) H Urine Ictotest Negative (NEGATIVE) Urine Urobilinogen 12 MG/DL (0.0-1.0) H Urine Leukocyte Esterase 1+ (NEGATIVE) H Urine RBC 2-4 /HPF (0 - 0) H Urine WBC 2-4 /HPF (0 - 0) Urine Squamous Epithelial Cells Few /LPF (NONE/OCC) Urine Amorphous Sediment Many /LPF (NONE) H Urine Bacteria Many /HPF (NONE) H Urine Opiates Screen Negative (NEGATIVE) Urine Barbiturates Screen Negative (NEGATIVE) Phencyclidine (PCP) Screen Negative (NEGATIVE) Urine Amphetamines Screen Negative (NEGATIVE) Urine Benzodiazepines Screen Negative (NEGATIVE) Urine Cocaine Screen Negative (NEGATIVE) Urine Marijuana (THC) Screen Negative (NEGATIVE) White Blood Count 12.6 K/UL (4.8-10.8) H Red Blood Count 3.48 M/UL (4.70-6.10) L Hemoglobin 11.9 G/DL (14.2-18.0) L Hematocrit 35.6 % (42.0-52.0) L Mean Corpuscular Volume 102 FL (80-99) H Mean Corpuscular Hemoglobin 34.2 PG (27.0-31.0) H Mean Corpuscular Hemoglobin Concent 33.5 G/DL (32.0-36.0) Red Cell Distribution Width 12.8 % (11.6-14.8) Platelet Count 320 K/UL (150-450) Mean Platelet Volume 9.6 FL (6.5-10.1) Neutrophils (%) (Auto) 83.0 % (45.0-75.0) H Lymphocytes (%) (Auto) 7.3 % (20.0-45.0) L Monocytes (%) (Auto) 8.8 % (1.0-10.0) Eosinophils (%) (Auto) 0.1 % (0.0-3.0) Basophils (%) (Auto) 0.7 % (0.0-2.0) Neutrophils % (Manual) Pending Lymphocytes % (Manual) Pending Platelet Estimate Pending Platelet Morphology Pending Prothrombin Time 12.7 SEC (9.30-11.50) H Prothrombin Time INR 1.2 (0.9-1.1) H PTT 32 SEC (23-33) Sodium Level 136 MMOL/L (136-145) Potassium Level 3.8 MMOL/L (3.5-5.1) Chloride Level 94 MMOL/L (98-107) L Carbon Dioxide Level 31 MMOL/L (21-32) Anion Gap 11 mmol/L (5-15) Blood Urea Nitrogen 11 mg/dL (7-18) Creatinine 0.9 MG/DL (0.55-1.30) Estimate Glomerular Filtration Rate > 60 mL/min (>60) Glucose Level 145 MG/DL (74-106) H Lactic Acid Level 2.90 mmol/L (0.4-2.0) H 2.40 mmol/L (0.66-2.22) H Calcium Level 8.9 MG/DL (8.5-10.1) Magnesium Level 1.6 MG/DL (1.8-2.4) L Total Bilirubin 1.9 MG/DL (0.2-1.0) H Pending Direct Bilirubin 1.2 MG/DL (0.0-0.3) H Aspartate Amino Transferase (AST) 123 U/L (15-37) H Alanine Aminotransferase (ALT) 24 U/L (12-78) Alkaline Phosphatase 340 U/L (46-116) H Total Creatine Kinase 25 U/L (26-308) L Troponin I 0.000 ng/mL (0.000-0.056) Total Protein 8.1 G/DL (6.4-8.2) Albumin 2.2 G/DL (3.4-5.0) L Globulin 5.9 g/dL Albumin/Globulin Ratio 0.4 (1.0-2.7) L Lipase 215 U/L (73-393) Serum Alcohol < 3 mg/dL Reticulocyte Count Pending PTT Mixing Study Pending APTT Patient/Control Mix Pending Mix PTT Incubation Time Pending Mix PTT Normal/Saline 1:1 Immediate Pending Thrombin Time Normal Plasma Pending Iron Level Pending Unsaturated Iron Binding Pending Ferritin Pending Vitamin B12 Level Pending Folate Pending Hepatitis A IgM Antibody Pending Hepatitis B Surface Antigen Pending Hepatitis B Core IgM Antibody Pending Hepatitis C Antibody Pending Labs Test 12/11/18 13:26 12/11/18 13:59 12/11/18 15:05 Urine Color Yellow Urine Appearance Very cloudy Urine pH 5 (4.5-8.0) Urine Specific [place] 1.025 (1.005-1.035) Urine Protein 2+ (NEGATIVE) Urine Glucose (UA) Negative (NEGATIVE) Urine Ketones 2+ (NEGATIVE) Urine Blood 2+ (NEGATIVE) Urine Nitrite Negative (NEGATIVE) Urine Bilirubin 2+ (NEGATIVE) Urine Ictotest Negative (NEGATIVE) Urine Urobilinogen 12 MG/DL (0.0-1.0) Urine Leukocyte Esterase 1+ (NEGATIVE) Urine RBC 2-4 /HPF (0 - 0) Urine WBC 2-4 /HPF (0 - 0) Urine Squamous Epithelial Cells Few /LPF (NONE/OCC) Urine Amorphous Sediment Many /LPF (NONE) Urine Bacteria Many /HPF (NONE) Urine Opiates Screen Negative (NEGATIVE) Urine Barbiturates Screen Negative (NEGATIVE) Phencyclidine (PCP) Screen Negative (NEGATIVE) Urine Amphetamines Screen Negative (NEGATIVE) Urine Benzodiazepines Screen Negative (NEGATIVE) Urine Cocaine Screen Negative (NEGATIVE) Urine Marijuana (THC) Screen Negative (NEGATIVE) White Blood Count 12.6 K/UL (4.8-10.8) Red Blood Count 3.48 M/UL (4.70-6.10) Hemoglobin 11.9 G/DL (14.2-18.0) Hematocrit 35.6 % (42.0-52.0) Mean Corpuscular Volume 102 FL (80-99) Mean Corpuscular Hemoglobin 34.2 PG (27.0-31.0) Mean Corpuscular Hemoglobin Concent 33.5 G/DL (32.0-36.0) Red Cell Distribution Width 12.8 % (11.6-14.8) Platelet Count 320 K/UL (150-450) Mean Platelet Volume 9.6 FL (6.5-10.1) Neutrophils (%) (Auto) 83.0 % (45.0-75.0) Lymphocytes (%) (Auto) 7.3 % (20.0-45.0) Monocytes (%) (Auto) 8.8 % (1.0-10.0) Eosinophils (%) (Auto) 0.1 % (0.0-3.0) Basophils (%) (Auto) 0.7 % (0.0-2.0) Prothrombin Time 12.7 SEC (9.30-11.50) Prothromb Time International Ratio 1.2 (0.9-1.1) Activated Partial Thromboplast Time 32 SEC (23-33) Sodium Level 136 MMOL/L (136-145) Potassium Level 3.8 MMOL/L (3.5-5.1) Chloride Level 94 MMOL/L (98-107) Carbon Dioxide Level 31 MMOL/L (21-32) Anion Gap 11 mmol/L (5-15) Blood Urea Nitrogen 11 mg/dL (7-18) Creatinine 0.9 MG/DL (0.55-1.30) Estimat Glomerular Filtration Rate > 60 mL/min (>60) Glucose Level 145 MG/DL (74-106) Lactic Acid Level 2.90 mmol/L (0.4-2.0) 2.40 mmol/L (0.66-2.22) Calcium Level 8.9 MG/DL (8.5-10.1) Magnesium Level 1.6 MG/DL (1.8-2.4) Total Bilirubin 1.9 MG/DL (0.2-1.0) Direct Bilirubin 1.2 MG/DL (0.0-0.3) Aspartate Amino Transf (AST/SGOT) 123 U/L (15-37) Alanine Aminotransferase (ALT/SGPT) 24 U/L (12-78) Alkaline Phosphatase 340 U/L (46-116) Total Creatine Kinase 25 U/L (26-308) Troponin I 0.000 ng/mL (0.000-0.056) Total Protein 8.1 G/DL (6.4-8.2) Albumin 2.2 G/DL (3.4-5.0) Globulin 5.9 g/dL Albumin/Globulin Ratio 0.4 (1.0-2.7) Lipase 215 U/L (73-393) Serum Alcohol < 3 mg/dL Assessment and Recs: # Pancytopenia -- multiple etiologies could be related to underlying liver disease, medication-induced, infection versus viral syndrome is very likely due to cirrhosis --> peripheral smear has been ordered and does not show significant abnormalities --> Medications have been reviewed --> Continue to monitor for improvement, trend cbc --> Hep panel and HIV have been ordered --> US abd ordered to r/o cirrhosis and hepatosplenomegaly as well as liver cirrhosis/hsm --> reverse isolation if ANC is <2000 --> Give neupogen if ANC <1000 --> Transfuse if hgb <7, with 1 unit prbc # Anemia of chronic disease (or of iron deficiency) due to underlying chronic medical issues, multifactorial --> Anemia workup has been ordered, rule out gi bleed --> No evidence of hemolysis is noted, peripheral smear has been reviewed. --> Hgb goal >7. Transfuse prn. --> Epogen or iron at this time is not particularly indicated --> Medications have been reviewed # Anemia of folic acid deficiency --> folic acid 1mg po daily noted # Abdominal pain --> likely due to cirrhosis/hsm # Elevated liver enzymes due to liver disease --> liver results reviewed --> monitor for withdrawal # UTI (urinary tract infection) --> requires abx prn # Ascites due to cirrhosis # Alcoholism The timing of this note does not necessarily reflect the time of the patient was seen. GREATLY APPRECIATE CONSULTATION. Slade Morris MD Dec 12, 2018 16:18
[2018-12-12] MEDS: D5 1/2NS w/KCl 20mEq 1,000 ML IV SCH (17:53)
--- NOTE | 2018-12-12 18:45 | Consultation ---
DATE OF CONSULTATION: 12/12/2018 INFECTIOUS DISEASE CONSULT CONSULTING PHYSICIAN: Tomi Solitario M.D. PRIMARY ATTENDING: Greer Carmen M.D. REASON FOR CONSULT: Sepsis. HISTORY OF PRESENT ILLNESS: This 58-year-old white male admitted yesterday complaining of abdominal pain and distention. The patient has similar pain a while ago that was associated with constipation. He has also history of alcoholism. At the time of admission, has tachycardia of 119, leukocytosis of 12.6. PAST MEDICAL HISTORY: Hypertension, alcoholism. ALLERGIES: No known drug allergies. MEDICATIONS: polyethylene glycol, Ultram, sodium chloride. Got a dose of ceftriaxone in the ER. SOCIAL HISTORY: . He is originated from [place]. 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 Has history of rare smoking. Has history of alcohol abuse. REVIEW OF SYSTEMS: No fever. No chills. No coughing. No chest pain. Abdominal distention and pain. Has generalized weakness. The patient thinks he was losing muscle. Gets tired after 5 or 6 flight of steps. PHYSICAL EXAMINATION: VITAL SIGNS: Temperature 98.3, pulse 106, blood pressure 128/78. GENERAL APPEARANCE: Well developed. HEAD AND NECK: [place] conjunctivae. HEART: Tachycardic. LUNGS: Clear. ABDOMEN: Distended. Tender to touch. EXTREMITIES: Has no edema. NEUROLOGIC: Awake, alert, oriented x3. LABORATORY DATA: WBC 12.6, hemoglobin 11.9, hematocrit 35.6, platelets 220. Sodium 136, potassium 3.8, chloride 94, bicarbonate 31, BUN 11, creatinine 0.9, glucose 145. Total bilirubin 1.9, direct bilirubin 1.2, AST 123, ALT 24, alkaline phosphatase 340. Hepatitis serology is pending. IMPRESSION: Sepsis with leukocytosis and tachycardia. So far, urine culture is negative. Chest x-ray was also negative. Source may be intraabdominal. He has hepatosplenomegaly, mild ascites, mild anemia, hypertension, and alcohol abuse. RECOMMENDATION: We will continue with Rocephin. The patient will have EGD and colonoscopy and will have abdominal ultrasound. At the end of my exam, I thank Dr. Carmen for involving me in the care of this patient. Tomi Solitario M.D. DR: SIERRA JOB#: [id number] CC: JAXON
--- NOTE | 2018-12-12 19:05 | NUR ---
CASE MANAGEMENT: REVIEW 58Y/M PRESENTED TO ED FROM HOME CC: ABD PAIN . N/V X3DAYS SI: SEPSIS T 98.4 HR 119 RR 20 BP 151/84 SAT 95% ROOM AIR WBC 12.6 LACTIC ACID 2.90 IS: CEFTRIAXONE IV X1 NS IVF BOLUS X1 REGLAN IV X1 ATIVAN IV X1 PEPCID IV X1 BENADRYL IV X1 NPO PATIENT ADMITTED TO TELEMETRY UNIT 12/11/2018 DCP: PATIENT IS FROM HOME
--- NOTE | 2018-12-12 19:45 | NUR ---
HAND-OFF: Report given to BONNIE Arcos. No acute s/s of distress noted.
--- NOTE | 2018-12-12 19:47 | NUR ---
NURSE NOTES: Received patient from Dung NICOLE. Patient is stable, in bed with no signs of distress. Patient is on NPO for AM procedures. Patient is on Room air and tolerating well. Bed is at its lowest position, call light in reach and X3 bed rails up.
[2018-12-12 20:00] VITALS: BP 120/89
[2018-12-13] VITALS (8 sets, daily range): BP systolic 101–129; BP diastolic 63–90
--- NOTE | 2018-12-13 01:28 | NUR ---
NURSE NOTES: Patient refuses to keep IV fluids running due to frequent bathroom visits. Will continue to encourage IV fluids.
--- NOTE | 2018-12-13 04:15 | History and Physical Report ---
DATE OF ADMISSION: 12/11/2018 HISTORY OF PRESENT ILLNESS: The patient is here for abdominal pain and distention, elevated LFTs. CT showed ascites, hepatomegaly, possible cirrhosis. The patient has history of alcohol abuse. The patient states that he has also been having constipation, abdominal pain, and distention. The patient also has abdominal pain and constipation going on for four days, has history of vomiting. Denies rectal bleeding. He has history of vomiting as well. Denies rectal bleeding. Denies diarrhea. PAST MEDICAL HISTORY: Significant for cirrhosis, GERD, alcohol abuse, hyperlipidemia, fatty liver. PAST SURGICAL HISTORY: None. ALLERGIES: No known allergies. MEDICATIONS: Protonix p.r.n. FAMILY HISTORY: Noncontributory. SOCIAL HISTORY: History of alcohol abuse. History of smoking. Denies history of drug abuse. Lives with girlfriend at home. REVIEW OF SYSTEMS: HEENT: Denies headaches. RESPIRATORY: Denies shortness of breath. Denies cough. CARDIOVASCULAR: Denies chest pain or orthopnea. GASTROINTESTINAL: Reports abdominal pain, distention, and constipation. Vomiting for four days. EXTREMITIES: Denies pain in the lower extremities. CENTRAL NERVOUS SYSTEM: No change in vision or speech pattern, however, is a poor historian. PHYSICAL EXAMINATION: VITAL SIGNS: Temperature 97.4, pulse 91, blood pressure 119/68. HEENT: PERRLA. NECK: Supple. No lymphadenopathy. CHEST: Clear to auscultation. CARDIOVASCULAR: Regular rate and rhythm. No murmurs or extra sounds. GASTROINTESTINAL: Distended, but nontender. Positive bowel sounds. EXTREMITIES: A 1+ edema. Reflexes equal both sides. Move all four extremities. LABORATORY AND DIAGNOSTIC DATA: WBC of 12.6, hemoglobin 11.9, platelets 320. Lactic acid 2.9. Iron of 34. ASSESSMENT: 1. Abdominal pain. 2. History of cirrhosis. 3. Alcohol abuse. 4. Constipation . 5. Vomiting. I have asked Dr. Trujillo, Dr. Gonzalez, Dr. Tomi Solitario, Dr. Paz, and Dr. Slade Morris to see the patient to rule out any cancer as well as for the management of his cirrhosis as well as rule out any infectious etiology. dehydration. Ali Carlos Carmen DR: Aide JOB#: [id number] CC:
[2018-12-13] MEDS: D5 1/2NS w/KCl 20mEq 1,000 ML IV SCH (05:27)
[2018-12-13 07:07] LABS: BASOPHILS % (AUTO) 0.9 % (0.0-2.0); EOSINOPHILS % (AUTO) 0.5 % (0.0-3.0); HEMATOCRIT 29.7 % (42.0-52.0); HEMOGLOBIN 9.9 G/DL (14.2-18.0); LYMPHOCYTES % (AUTO) 12.7 % (20.0-45.0); MEAN CORPUSCULAR VOLUME 103 FL (80-99); MONOCYTES % (AUTO) 7.3 % (1.0-10.0); NEUTROPHILS % (AUTO) 78.5 % (45.0-75.0); PLATELET COUNT 250 K/UL (150-450); RED CELL DISTRIBUTION WIDTH 12.7 % (11.6-14.8); WHITE BLOOD COUNT 13.2 K/UL (4.8-10.8)
[2018-12-13] MEDS ORDERED: NS 500ML IVPB ONE (07:15)
[2018-12-13] MEDS ORDERED: Propofol 200mg/20ml IV ONE (07:30)
[2018-12-13] MEDS ORDERED: Lidocaine 1% MPF 10mg/ml 5ml ONE (07:30)
--- NOTE | 2018-12-13 07:30 | Pre-Procedure Note/Attestation ---
Pre-Procedure Note/Attestation Complete Prior to Procedure Procedure Narrative: esophagogastroduodenoscopy and colonoscopy Indications for Procedure Pre-Operative Diagnosis: anemia Attestation I attest that I discussed the nature of the procedure; its benefits; risks and complications; and alternatives (and the risks and benefits of such alternatives ), prior to the procedure, with the patient (or the patient's legal manufacturers representative). I attest that, if there was a reasonable possibility of needing a blood transfusion, the patient (or the patient's legal manufacturers representative) was given the [facility] standardized written summary, pursuant to the Vick Michi Blood Safety Act ([place] Health and Safety Code # 1645, as amended). I attest that I re-evaluated the patient just prior to the surgery and that there has been no change in the patient's H&P, except as documented below: Michael Trujillo MD Dec 13, 2018 07:30
[2018-12-13 07:35] LABS: ALANINE AMINOTRANSFERASE 16 U/L (12-78); ALBUMIN 1.9 G/DL (3.4-5.0); ALBUMIN/GLOBULIN RATIO 0.4 (1.0-2.7); ALKALINE PHOSPHATASE 265 U/L (46-116); ANION GAP 9 mmol/L (5-15); ASPARTATE AMINO TRANSFERASE 83 U/L (15-37); BILIRUBIN,TOTAL 1.3 MG/DL (0.2-1.0); BLOOD UREA NITROGEN 11 mg/dL (7-18); CALCIUM 7.9 MG/DL (8.5-10.1); CARBON DIOXIDE 30 MMOL/L (21-32); CHLORIDE 97 MMOL/L (98-107); CREATININE 0.8 MG/DL (0.55-1.30); POTASSIUM 3.4 MMOL/L (3.5-5.1); SODIUM 136 MMOL/L (136-145)
[2018-12-13 07:36] LABS: BILIRUBIN,DIRECT 0.8 MG/DL (0.0-0.3)
--- NOTE | 2018-12-13 07:40 | NUR ---
NURSE NOTES: Report received from BONNIE Arcos. Patient out for procedure. Room cleaned, bed made, left on lower position, brakes on. Board updated.
--- NOTE | 2018-12-13 07:45 | NUR ---
HAND-OFF: Report given to Raffaele NICOLE.
--- NOTE | 2018-12-13 07:59 | Anethesia Preoperative Eval ---
Anesthesia Pre-op PMH/ROS General Date of Evaluation: Dec 13, 2018 Time of Evaluation: 07:36 Anesthesiologist: bigg ASA Score: ASA 3 Mallampati Score Class I : Soft palate, uvula, fauces, pillars visible Class II: Soft palate, uvula, fauces visible Class III: Soft palate, base of uvula visible Class IV: Only hard plate visible Mallampati Classification: Class II Surgeon: andreas Diagnosis: abdominal pain Surgical Procedure: egd/colonoscopy Anesthesia History: none Social History: current smoker, alcohol use Family History: no anesthesia problems Allergies: Coded Allergies: No Known Allergies (Unverified , 11/15/12) Medications: see eMAR Patient NPO?: Yes Past Medical History Cardiovascular: Reports: HTN Anesthesia Pre-op Phys. Exam Physician Exam Last Vital Signs Date Time Temp Pulse Resp B/P (MAP) Pulse Ox O2 Delivery O2 Flow Rate FiO2 12/13/18 04:00 98.9 92 20 101/63 (76) 97 12/12/18 21:00 Room Air Constitutional: NAD Neurologic: CN 2-12 intact Cardiovascular: RRR Respiratory: CTA Gastrointestinal: S/NT/ND Airway Exam Mallampati Score: Class II MO: limited Neck: flexible TMD: 2fb ROM: limited Anesthesia Pre-op A/P Labs Hematology Test 12/13/18 05:55 White Blood Count 13.2 K/UL (4.8-10.8) H Red Blood Count 2.90 M/UL (4.70-6.10) L Hemoglobin 9.9 G/DL (14.2-18.0) L Hematocrit 29.7 % (42.0-52.0) L Mean Corpuscular Volume 103 FL (80-99) H Mean Corpuscular Hemoglobin 34.2 PG (27.0-31.0) H Mean Corpuscular Hemoglobin Concent 33.3 G/DL (32.0-36.0) Red Cell Distribution Width 12.7 % (11.6-14.8) Platelet Count 250 K/UL (150-450) Mean Platelet Volume 8.7 FL (6.5-10.1) Neutrophils (%) (Auto) 78.5 % (45.0-75.0) H Lymphocytes (%) (Auto) 12.7 % (20.0-45.0) L Monocytes (%) (Auto) 7.3 % (1.0-10.0) Eosinophils (%) (Auto) 0.5 % (0.0-3.0) Basophils (%) (Auto) 0.9 % (0.0-2.0) Chemistry Test 12/13/18 05:55 Sodium Level 136 MMOL/L (136-145) Potassium Level 3.4 MMOL/L (3.5-5.1) L Chloride Level 97 MMOL/L (98-107) L Carbon Dioxide Level 30 MMOL/L (21-32) Anion Gap 9 mmol/L (5-15) Blood Urea Nitrogen 11 mg/dL (7-18) Creatinine 0.8 MG/DL (0.55-1.30) Estimat Glomerular Filtration Rate > 60 mL/min (>60) Glucose Level 113 MG/DL (74-106) H Calcium Level 7.9 MG/DL (8.5-10.1) L Total Bilirubin 1.3 MG/DL (0.2-1.0) H Direct Bilirubin 0.8 MG/DL (0.0-0.3) H Aspartate Amino Transf (AST/SGOT) 83 U/L (15-37) H Alanine Aminotransferase (ALT/SGPT) 16 U/L (12-78) Alkaline Phosphatase 265 U/L (46-116) H Total Protein 6.5 G/DL (6.4-8.2) Albumin 1.9 G/DL (3.4-5.0) L Globulin 4.6 g/dL Albumin/Globulin Ratio 0.4 (1.0-2.7) L Risk Assessment & Plan Assessment: asa3 Plan: mac Status Change Before Surgery: No Pre-Antibiotics Drug: Lyla Merlos MD Dec 13, 2018 07:59
[2018-12-13] MEDS ORDERED: Atropine Inj 1mg/10ml Syr IV PRN (08:00)
[2018-12-13] MEDS ORDERED: Midazolam 2mg/2ml Inj IVP PRN (08:00)
[2018-12-13] MEDS ORDERED: fentaNYL 100 mcg/2 mL IV PRN (08:00)
[2018-12-13] MEDS ORDERED: DiphenhydrAMINE 50mg/ml Inj IVP PRN (08:00)
--- NOTE | 2018-12-13 08:10 | NUR ---
NURSE NOTES: Informed lab results to Dr. Carmen.
--- NOTE | 2018-12-13 08:11 | Endoscopy Procedure Note ---
Endoscopy Procedure Note General Indication for Procedure: anemia Procedures Performed: EGD, colonoscopy Operative Findings/Diagnosis: 7 polyps Specimen: yes Pt Tolerated Procedure Well: Yes Estimated Blood Loss: none Anesthesia Anesthesiologist: bigg Anesthesia: MAC Inserted Devices Implant(s) used?: No Quality Quality of Bowel Preparation: Good Did scope reach the cecum?: Yes Was there any complications?: No GI Core Measures 50 yrs or older w/o bx or poly: Not Applicable 10yrs. F/U recommended: Not Applicable Michael Trujillo MD Dec 13, 2018 08:11
[2018-12-13 08:24] LABS: PHOSPHORUS 2.9 MG/DL (2.5-4.9)
--- NOTE | 2018-12-13 08:45 | Hematology/Onc Progress Note ---
Assessment/Plan Assessment/Plan Assessment and Recs: # Coagulopathy. Multifactorial, likely related to cirrhosis --> administer Vitamin K if patient is bleeding or FFP if the INR is >10 --> hold off on ffp unless active procedure/bleeding, first begin with vit K 10 --> mixing study as needed --> US abd: Shows Hepatosplenomegaly. Mild surface nodularity of the liver suggestive of chronic disease. Please correlate clinically. Thickening of the gallbladder wall, nonspecific. # Anemia of chronic disease due to underlying chronic medical issues, multifactorial --> Anemia workup has been reviewed. Ferritin 485 --> No evidence of hemolysis is noted, peripheral smear has been reviewed. --> Hgb goal >7. Transfuse prn. --> Epogen or iron at this time is not particularly indicated --> Medications have been reviewed --> Hgb trend: 9.9 # Anemia of folic acid deficiency --> folic acid 1mg po daily noted # Abdominal pain --> likely due to cirrhosis/hsm # Elevated liver enzymes due to liver disease --> liver results reviewed --> monitor for withdrawal # UTI (urinary tract infection) --> requires abx prn # Ascites due to cirrhosis # Alcoholism The timing of this note does not necessarily reflect the time of the patient was seen. GREATLY APPRECIATE CONSULTATION. Subjective Hematologic/Lymphatic: Reports: anemia Allergies: Coded Allergies: No Known Allergies (Unverified , 11/15/12) All Systems: reviewed and negative except above Subjective 12/13: Pt resting in bed. No acute events. Hgb stable. Objective Objective Current Medications Medications (Trade) Dose Ordered Sig/Jose Ramon Route PRN Reason Start Time Stop Time Status Last Admin Dose Admin Al Hydroxide/Mg Hydroxide (Mylanta) 15 ml Q1H PRN ORAL gi upset 12/13/18 08:00 12/13/18 18:00 Atropine Sulfate (Atropine) 0.5 mg Q5M PRN IV bpm less than 45 12/13/18 08:00 12/13/18 18:00 Barium Sulfate (Readi-Cat 2) 450 ml NOW PRN ORAL Radiology Procedure 12/11/18 13:45 12/13/18 13:41 Ceftriaxone Sodium 1 gm/ Dextrose 55 ml @ 110 mls/hr Q24H IVPB 12/13/18 17:00 12/20/18 16:59 Dextrose/ Electrolytes 1,000 ml @ 75 mls/hr [id number] IV 12/12/18 16:00 01/11/19 15:59 12/13/18 05:27 Diphenhydramine HCl (Benadryl) 25 mg Q15M PRN IVP Itching 12/13/18 08:00 12/13/18 18:00 Fentanyl Citrate (Sublimaze 100 mcg/2 mL) 25 mcg Q10M PRN IV Moderate Pain (Pain Scale 4-6) 12/13/18 08:00 12/13/18 18:00 Folic Acid (Folate) 1 mg DAILY ORAL 12/13/18 09:00 01/12/19 08:59 Hydralazine HCl (Apresoline) 5 mg Q30M PRN IV SBP>160 OR___/DBP>90 OR___ 12/13/18 08:00 12/13/18 18:00 Iopamidol (Isovue-300 100ml) 100 ml NOW PRN INJ Radiology Procedure 12/11/18 13:45 12/13/18 13:44 Midazolam HCl (Versed 2mg/2ml vial) 1 mg Q15M PRN IVP For Anxiety 12/13/18 08:00 12/13/18 18:00 Ondansetron HCl (Zofran) 4 mg Q1H PRN IVP Nausea & Vomiting 12/13/18 08:00 12/13/18 18:00 Ondansetron HCl (Zofran) 4 mg Q6H PRN IVP Nausea & Vomiting 12/11/18 19:00 01/10/19 18:59 Sodium Chloride 1,000 ml @ 10 mls/hr Q24H IVLG 12/13/18 07:55 12/13/18 09:54 Tramadol HCl (Ultram) 25 mg Q4H PRN ORAL severe pain 12/12/18 09:00 12/19/18 08:59 Last 24 Hour Vital Signs Date Time Temp Pulse Resp B/P (MAP) Pulse Ox O2 Delivery O2 Flow Rate FiO2 12/13/18 08:25 94 24 118/79 98 Room Air 12/13/18 08:20 93 22 105/69 100 Nasal Cannula 3 12/13/18 08:17 99.0 92 18 102/67 100 Nasal Cannula 3 12/13/18 04:00 98.9 92 20 101/63 (76) 97 12/13/18 04:00 91 12/13/18 00:00 106 12/13/18 00:00 98.0 95 19 126/78 (94) 97 12/12/18 21:00 Room Air 12/12/18 20:00 98.4 99 20 120/89 (99) 98 12/12/18 19:59 110 12/12/18 16:00 111 12/12/18 16:00 99.2 104 18 113/80 (91) 96 12/12/18 12:00 98.4 100 20 116/81 (93) 95 12/12/18 12:00 97 12/12/18 09:00 Room Air 12/12/18 08:00 91 12/12/18 08:00 98.3 106 18 128/78 (95) 96 12/12/18 04:00 97.4 91 19 119/68 (85) 97 12/12/18 03:27 91 12/12/18 00:00 97.9 96 18 106/75 (85) 97 12/11/18 23:39 93 12/11/18 21:00 Room Air 12/11/18 20:00 98.9 98 18 113/73 (86) 98 12/11/18 19:03 98 12/11/18 18:28 Room Air 12/11/18 17:53 98.7 102 20 111/72 95 Room Air 12/11/18 17:39 98.7 102 20 123/76 95 Room Air 12/11/18 16:03 98.7 105 20 116/76 95 Room Air 12/11/18 13:30 98.4 110 20 142/84 95 Room Air 12/11/18 13:24 98.4 110 20 151/84 95 Room Air 12/11/18 13:24 119 20 Room Air 12/11/18 13:22 98.4 119 20 151/84 (106) 95 Room Air Intake and Output 12/12/18 12/13/18 19:00 07:00 Intake Total 116.25 ml Balance 116.25 ml Intake IV Total 116.25 ml # Voids 3 4 Labs Test 12/11/18 13:26 12/11/18 13:59 12/11/18 15:05 12/11/18 21:31 Urine Color Yellow Urine Appearance Very cloudy Urine pH 5 (4.5-8.0) Urine Specific [place] 1.025 (1.005-1.035) Urine Protein 2+ (NEGATIVE) Urine Glucose (UA) Negative (NEGATIVE) Urine Ketones 2+ (NEGATIVE) Urine Blood 2+ (NEGATIVE) Urine Nitrite Negative (NEGATIVE) Urine Bilirubin 2+ (NEGATIVE) Urine Ictotest Negative (NEGATIVE) Urine Urobilinogen 12 MG/DL (0.0-1.0) Urine Leukocyte Esterase 1+ (NEGATIVE) Urine RBC 2-4 /HPF (0 - 0) Urine WBC 2-4 /HPF (0 - 0) Urine Squamous Epithelial Cells Few /LPF (NONE/OCC) Urine Amorphous Sediment Many /LPF (NONE) Urine Bacteria Many /HPF (NONE) Urine Opiates Screen Negative (NEGATIVE) Urine Barbiturates Screen Negative (NEGATIVE) Phencyclidine (PCP) Screen Negative (NEGATIVE) Urine Amphetamines Screen Negative (NEGATIVE) Urine Benzodiazepines Screen Negative (NEGATIVE) Urine Cocaine Screen Negative (NEGATIVE) Urine Marijuana (THC) Screen Negative (NEGATIVE) White Blood Count 12.6 K/UL (4.8-10.8) Red Blood Count 3.48 M/UL (4.70-6.10) Hemoglobin 11.9 G/DL (14.2-18.0) Hematocrit 35.6 % (42.0-52.0) Mean Corpuscular Volume 102 FL (80-99) Mean Corpuscular Hemoglobin 34.2 PG (27.0-31.0) Mean Corpuscular Hemoglobin Concent 33.5 G/DL (32.0-36.0) Red Cell Distribution Width 12.8 % (11.6-14.8) Platelet Count 320 K/UL (150-450) Mean Platelet Volume 9.6 FL (6.5-10.1) Neutrophils (%) (Auto) 83.0 % (45.0-75.0) Lymphocytes (%) (Auto) 7.3 % (20.0-45.0) Monocytes (%) (Auto) 8.8 % (1.0-10.0) Eosinophils (%) (Auto) 0.1 % (0.0-3.0) Basophils (%) (Auto) 0.7 % (0.0-2.0) Differential Total Cells Counted 100 Neutrophils % (Manual) 86 % (45-75) Lymphocytes % (Manual) 7 % (20-45) Monocytes % (Manual) 7 % (1-10) Eosinophils % (Manual) 0 % (0-3) Basophils % (Manual) 0 % (0-2) Band Neutrophils 0 % (0-8) Platelet Estimate Adequate Platelet Morphology Normal Red Blood Cell Morphology Normal Prothrombin Time 12.7 SEC (9.30-11.50) Prothromb Time International Ratio 1.2 (0.9-1.1) Activated Partial Thromboplast Time 32 SEC (23-33) Sodium Level 136 MMOL/L (136-145) Potassium Level 3.8 MMOL/L (3.5-5.1) Chloride Level 94 MMOL/L (98-107) Carbon Dioxide Level 31 MMOL/L (21-32) Anion Gap 11 mmol/L (5-15) Blood Urea Nitrogen 11 mg/dL (7-18) Creatinine 0.9 MG/DL (0.55-1.30) Estimat Glomerular Filtration Rate > 60 mL/min (>60) Glucose Level 145 MG/DL (74-106) Lactic Acid Level 2.90 mmol/L (0.4-2.0) 2.40 mmol/L (0.66-2.22) Calcium Level 8.9 MG/DL (8.5-10.1) Magnesium Level 1.6 MG/DL (1.8-2.4) Total Bilirubin 1.9 MG/DL (0.2-1.0) 1.4 MG/DL (0.2-1.0) Direct Bilirubin 1.2 MG/DL (0.0-0.3) 0.9 MG/DL (0.0-0.3) Aspartate Amino Transf (AST/SGOT) 123 U/L (15-37) Alanine Aminotransferase (ALT/SGPT) 24 U/L (12-78) Alkaline Phosphatase 340 U/L (46-116) Total Creatine Kinase 25 U/L (26-308) Troponin I 0.000 ng/mL (0.000-0.056) Total Protein 8.1 G/DL (6.4-8.2) Albumin 2.2 G/DL (3.4-5.0) Globulin 5.9 g/dL Albumin/Globulin Ratio 0.4 (1.0-2.7) Lipase 215 U/L (73-393) Serum Alcohol < 3 mg/dL Reticulocyte Count 1.7 % (0.5-2.0) Iron Level 34 ug/dL (50-175) Total Iron Binding Capacity 103 ug/dL (250-450) Percent Iron Saturation 33 % (15-50) Unsaturated Iron Binding 69 ug/dL (112-346) Ferritin 485 NG/ML (8-388) Vitamin B12 Level 436 PG/ML (193-986) Folate 2.8 NG/ML (8.6-58.9) Hepatitis A IgM Antibody Negative (Negative) Hepatitis B Surface Antigen Negative (Negative) Hepatitis B Core IgM Antibody Negative (Negative) Hepatitis C Antibody 0.1 s/co ratio (0.0-0.9) Test 12/12/18 06:51 12/13/18 05:55 Amylase Level 49 U/L (25-115) White Blood Count 13.2 K/UL (4.8-10.8) Red Blood Count 2.90 M/UL (4.70-6.10) Hemoglobin 9.9 G/DL (14.2-18.0) Hematocrit 29.7 % (42.0-52.0) Mean Corpuscular Volume 103 FL (80-99) Mean Corpuscular Hemoglobin 34.2 PG (27.0-31.0) Mean Corpuscular Hemoglobin Concent 33.3 G/DL (32.0-36.0) Red Cell Distribution Width 12.7 % (11.6-14.8) Platelet Count 250 K/UL (150-450) Mean Platelet Volume 8.7 FL (6.5-10.1) Neutrophils (%) (Auto) 78.5 % (45.0-75.0) Lymphocytes (%) (Auto) 12.7 % (20.0-45.0) Monocytes (%) (Auto) 7.3 % (1.0-10.0) Eosinophils (%) (Auto) 0.5 % (0.0-3.0) Basophils (%) (Auto) 0.9 % (0.0-2.0) Sodium Level 136 MMOL/L (136-145) Potassium Level 3.4 MMOL/L (3.5-5.1) Chloride Level 97 MMOL/L (98-107) Carbon Dioxide Level 30 MMOL/L (21-32) Anion Gap 9 mmol/L (5-15) Blood Urea Nitrogen 11 mg/dL (7-18) Creatinine 0.8 MG/DL (0.55-1.30) Estimat Glomerular Filtration Rate > 60 mL/min (>60) Glucose Level 113 MG/DL (74-106) Calcium Level 7.9 MG/DL (8.5-10.1) Phosphorus Level 2.9 MG/DL (2.5-4.9) Magnesium Level 1.6 MG/DL (1.8-2.4) Total Bilirubin 1.3 MG/DL (0.2-1.0) Direct Bilirubin 0.8 MG/DL (0.0-0.3) Aspartate Amino Transf (AST/SGOT) 83 U/L (15-37) Alanine Aminotransferase (ALT/SGPT) 16 U/L (12-78) Alkaline Phosphatase 265 U/L (46-116) Total Protein 6.5 G/DL (6.4-8.2) Albumin 1.9 G/DL (3.4-5.0) Globulin 4.6 g/dL Albumin/Globulin Ratio 0.4 (1.0-2.7) Height (Feet): 5 Height (Inches): 7.00 Weight (Pounds): 194 Objective General Appearance: alert, GCS 15, non-toxic Head: normocephalic Eyes: bilateral eye normal inspection, bilateral eye PERRl ENT: moist mucus membranes Neck: supple Respiratory: lungs clear, normal breath sounds Cardiovascular no edema, tachycardia Gastrointestinal: no mass, no guarding, no rebound, distended, tenderness - Diffuse, other - Fluid with, decreased bowel sounds Genitourinary: no CVA tenderness Musculoskeletal: back normal, gait/station normal, normal range of motion Neurologic: alert, oriented x3, motor strength/tone normal, SLR negative, other - No asterixis Psychiatric: anxious Skin: normal inspection Slade Morris MD Dec 13, 2018 08:45
--- NOTE | 2018-12-13 09:03 | General Progress Note ---
Assessment/Plan Assessment/Plan: (1) Abdominal pain (2) Ascites (3) Liver disease, cirrhosis (4) History of alcoholism Pt will be continued on Tramadol. D/w Dr. Paz and he concurred. Subjective Date patient seen: Dec 13, 2018 Time patient seen: 08:45 - am Allergies: Coded Allergies: No Known Allergies (Unverified , 11/15/12) All Systems: reviewed and negative except above Subjective REVIEW OF SYSTEMS: Denies rash, fever, chills, sweating, dizziness, drowsiness, blurred vision, sore throat, or change in weight. No shortness of breath or chest pain. No nausea, vomiting, diarrhea, or blood in the stool or urine. No dysuria. He is complaining of abdominal pain. SUBJECTIVE: Patient is tolerating pain has not request the Dilaudid and is s/p endoscopy and colonoscopy with GI. No new complaints at this time. Objective Last 24 Hour Vital Signs Date Time Temp Pulse Resp B/P (MAP) Pulse Ox O2 Delivery O2 Flow Rate FiO2 12/13/18 08:40 98.4 92 23 124/80 98 Room Air 12/13/18 08:25 94 24 118/79 98 Room Air 12/13/18 08:20 93 22 105/69 100 Nasal Cannula 3 12/13/18 08:17 99.0 92 18 102/67 100 Nasal Cannula 3 12/13/18 04:00 98.9 92 20 101/63 (76) 97 12/13/18 04:00 91 12/13/18 00:00 106 12/13/18 00:00 98.0 95 19 126/78 (94) 97 12/12/18 21:00 Room Air 12/12/18 20:00 98.4 99 20 120/89 (99) 98 12/12/18 19:59 110 12/12/18 16:00 111 12/12/18 16:00 99.2 104 18 113/80 (91) 96 12/12/18 12:00 98.4 100 20 116/81 (93) 95 12/12/18 12:00 97 Intake and Output 12/12/18 12/13/18 18:59 06:59 Intake Total 50 ml 41.25 ml Balance 50 ml 41.25 ml Intake IV Total 50 ml 41.25 ml # Voids 3 4 Laboratory Tests 12/13/18 05:55: White Blood Count 13.2H, Red Blood Count 2.90L, Hemoglobin 9.9L, Hematocrit 29.7L, Mean Corpuscular Volume 103H, Mean Corpuscular Hemoglobin 34.2H, Mean Corpuscular Hemoglobin Concent 33.3, Red Cell Distribution Width 12.7, Platelet Count 250, Mean Platelet Volume 8.7, Neutrophils (%) (Auto) 78.5H, Lymphocytes ( %) (Auto) 12.7L, Monocytes (%) (Auto) 7.3, Eosinophils (%) (Auto) 0.5, Basophils (%) (Auto) 0.9, Sodium Level 136, Potassium Level 3.4L, Chloride Level 97L, Carbon Dioxide Level 30, Anion Gap 9, Blood Urea Nitrogen 11, Creatinine 0.8, Estimat Glomerular Filtration Rate > 60, Glucose Level 113H, Calcium Level 7.9L, Phosphorus Level 2.9, Magnesium Level 1.6L, Total Bilirubin 1.3H, Direct Bilirubin 0.8H, Aspartate Amino Transf (AST/SGOT) 83H, Alanine Aminotransferase (ALT/SGPT) 16, Alkaline Phosphatase 265H, Total Protein 6.5, Albumin 1.9L, Globulin 4.6, Albumin/Globulin Ratio 0.4L Height (Feet): 5 Height (Inches): 7.00 Weight (Pounds): 194 Objective GENERAL: Alert, awake, oriented. LUNGS: Decreased breath sounds bilaterally. HEART: S1 and S2 regular. ABDOMEN: Distended with tenderness to palpation. BACK: Range of motion is decreased in flexion, extension. EXTREMITIES: No cyanosis. No clubbing. No edema. NEURO: No changes. Blu Ierland Dec 13, 2018 09:03
--- NOTE | 2018-12-13 10:04 | Consultation ---
Consult Note Consult Note asked to eval for electrolyte abnormality and fluid management ER note 12/11 The patient presents with several weeks of abdominal pain and distention. This started with a bout of constipation several weeks ago. It finally resolved with prune juice. From straining there was a little bit of blood around the stool. He said he stopped eating solid food and his belly seemed to improve. He has lost weight. He started eating again there was more abdominal distention. Right now the pain is 6/10 when he lays down. It is worse when sitting or standing. 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 He performed ultrasound on himself and is not sure if he saw fluid. His liver is large and might have steatosis. He did not have an official reading. The patient denies any medical problems. He has not seen a doctor for a while. He does drink alcohol and his last drink was yesterday. Patient denies chest pain. He has had a nonproductive cough which seemed to improve about a week ago. Admitted 2014 for malignant HTN and alcoholism. . Assessment/Plan Hypokalemia HypoMagnesemia Etoh abuse Macrocytic Anemia Low folate chronic liver disease ? UTI plan Dc IV Po KCL IV Mag up dose folate add thiamin recheck lactate level Ilir Gonzalez MD Dec 13, 2018 10:04
--- NOTE | 2018-12-13 11:09 | Infectious Diseases Prog Note ---
Assessment/Plan Assessment/Plan IMPRESSION: Sepsis/SIRS with leukocytosis and tachycardia. Hepatosplenomegaly, mild ascites, mild anemia, hypertension, alcohol abuse. Colon polyps Decreased Magnesium RECOMMENDATION: continue with Rocephin in hospital Can be discharged without antibiotic Subjective ROS Limited/Unobtainable: Yes Constitutional: Reports: no symptoms, other - doing better Respiratory: Reports: no symptoms Cardiovascular: Reports: no symptoms Gastrointestinal/Abdominal: Reports: other - passing gas, abdominal pain is resolving Genitourinary: Reports: no symptoms Allergies: Coded Allergies: No Known Allergies (Unverified , 11/15/12) Objective Vital Signs Last 24 Hour Vital Signs Date Time Temp Pulse Resp B/P (MAP) Pulse Ox O2 Delivery O2 Flow Rate FiO2 12/13/18 09:00 Room Air 12/13/18 08:40 98.4 92 23 124/80 98 Room Air 12/13/18 08:25 94 24 118/79 98 Room Air 12/13/18 08:20 93 22 105/69 100 Nasal Cannula 3 12/13/18 08:17 99.0 92 18 102/67 100 Nasal Cannula 3 12/13/18 08:00 91 12/13/18 04:00 98.9 92 20 101/63 (76) 97 12/13/18 04:00 91 12/13/18 00:00 106 12/13/18 00:00 98.0 95 19 126/78 (94) 97 12/12/18 21:00 Room Air 12/12/18 20:00 98.4 99 20 120/89 (99) 98 12/12/18 19:59 110 12/12/18 16:00 111 12/12/18 16:00 99.2 104 18 113/80 (91) 96 12/12/18 12:00 98.4 100 20 116/81 (93) 95 12/12/18 12:00 97 Height (Feet): 5 Height (Inches): 7.00 Weight (Pounds): 194 General Appearance: no acute distress HEENT: mucous membranes moist Respiratory/Chest: lungs clear Abdomen: distended Extremities: no edema Neurologic/Psychiatric: alert, oriented x 3, responsive Microbiology Date/Time Source Procedure Growth Status 12/11/18 13:26 Urine,Clean Catch Urine Culture - Final NO GROWTH AFTER 48 HOURS Complete Laboratory Tests Test 6/27/19 05:55 White Blood Count 13.2 K/UL (4.8-10.8) H Red Blood Count 2.90 M/UL (4.70-6.10) L Hemoglobin 9.9 G/DL (14.2-18.0) L Hematocrit 29.7 % (42.0-52.0) L Mean Corpuscular Volume 103 FL (80-99) H Mean Corpuscular Hemoglobin 34.2 PG (27.0-31.0) H Mean Corpuscular Hemoglobin Concent 33.3 G/DL (32.0-36.0) Red Cell Distribution Width 12.7 % (11.6-14.8) Platelet Count 250 K/UL (150-450) Mean Platelet Volume 8.7 FL (6.5-10.1) Neutrophils (%) (Auto) 78.5 % (45.0-75.0) H Lymphocytes (%) (Auto) 12.7 % (20.0-45.0) L Monocytes (%) (Auto) 7.3 % (1.0-10.0) Eosinophils (%) (Auto) 0.5 % (0.0-3.0) Basophils (%) (Auto) 0.9 % (0.0-2.0) Sodium Level 136 MMOL/L (136-145) Potassium Level 3.4 MMOL/L (3.5-5.1) L Chloride Level 97 MMOL/L (98-107) L Carbon Dioxide Level 30 MMOL/L (21-32) Anion Gap 9 mmol/L (5-15) Blood Urea Nitrogen 11 mg/dL (7-18) Creatinine 0.8 MG/DL (0.55-1.30) Estimat Glomerular Filtration Rate > 60 mL/min (>60) Glucose Level 113 MG/DL (74-106) H Calcium Level 7.9 MG/DL (8.5-10.1) L Phosphorus Level 2.9 MG/DL (2.5-4.9) Magnesium Level 1.6 MG/DL (1.8-2.4) L Total Bilirubin 1.3 MG/DL (0.2-1.0) H Direct Bilirubin 0.8 MG/DL (0.0-0.3) H Aspartate Amino Transf (AST/SGOT) 83 U/L (15-37) H Alanine Aminotransferase (ALT/SGPT) 16 U/L (12-78) Alkaline Phosphatase 265 U/L (46-116) H Total Protein 6.5 G/DL (6.4-8.2) Albumin 1.9 G/DL (3.4-5.0) L Globulin 4.6 g/dL Albumin/Globulin Ratio 0.4 (1.0-2.7) L Current Medications Medications (Trade) Dose Ordered Sig/Jose Ramon Route PRN Reason Start Time Stop Time Status Last Admin Dose Admin Al Hydroxide/Mg Hydroxide (Mylanta) 15 ml Q1H PRN ORAL gi upset 12/13/18 08:00 12/13/18 18:00 Atropine Sulfate (Atropine) 0.5 mg Q5M PRN IV bpm less than 45 12/13/18 08:00 12/13/18 18:00 Barium Sulfate (Readi-Cat 2) 450 ml NOW PRN ORAL Radiology Procedure 12/11/18 13:45 12/13/18 13:41 Ceftriaxone Sodium 1 gm/ Dextrose 55 ml @ 110 mls/hr Q24H IVPB 12/13/18 17:00 12/20/18 16:59 Diphenhydramine HCl (Benadryl) 25 mg Q15M PRN IVP Itching 12/13/18 08:00 12/13/18 18:00 Fentanyl Citrate (Sublimaze 100 mcg/2 mL) 25 mcg Q10M PRN IV Moderate Pain (Pain Scale 4-6) 12/13/18 08:00 12/13/18 18:00 Folic Acid (Folate) 5 mg DAILY ORAL 12/13/18 10:15 01/12/19 08:59 12/13/18 10:37 Hydralazine HCl (Apresoline) 5 mg Q30M PRN IV SBP>160 OR___/DBP>90 OR___ 12/13/18 08:00 12/13/18 18:00 Iopamidol (Isovue-300 100ml) 100 ml NOW PRN INJ Radiology Procedure 12/11/18 13:45 12/13/18 13:44 Magnesium Sulfate 100 ml @ 100 mls/hr Q1H IVPB 12/13/18 10:15 12/13/18 14:14 12/13/18 10:32 Midazolam HCl (Versed 2mg/2ml vial) 1 mg Q15M PRN IVP For Anxiety 12/13/18 08:00 12/13/18 18:00 Ondansetron HCl (Zofran) 4 mg Q1H PRN IVP Nausea & Vomiting 12/13/18 08:00 12/13/18 18:00 Ondansetron HCl (Zofran) 4 mg Q6H PRN IVP Nausea & Vomiting 12/11/18 19:00 01/10/19 18:59 Potassium Chloride (K-Dur) 40 meq DAILY ORAL 12/13/18 10:15 01/12/19 10:14 12/13/18 10:32 Thiamine HCl (Vitamin B1) 100 mg DAILY ORAL 12/14/18 09:00 01/13/19 08:59 Tramadol HCl (Ultram) 25 mg Q4H PRN ORAL severe pain 12/12/18 09:00 12/19/18 08:59 Tomi Solitario MD Dec 13, 2018 11:09
--- NOTE | 2018-12-13 12:15 | Immediate Post-Op Evaluation ---
Immediate Post-Op Evalulation Immediate Post-Op Evalulation Procedure: egd/colonoscopy/bx Date of Evaluation: Dec 13, 2018 Time of Evaluation: 08:29 IV Fluids: 350ml 0.9ns Blood Products: none Estimated Blood Loss: negligible Blood Pressure Systolic: 102 Blood Pressure Diastolic: 67 Pulse Rate: 92 Respiratory Rate: 18 O2 Sat by Pulse Oximetry: 100 Temperature (Fahrenheit): 99.0 Pain Score (1-10): 0 Nausea: No Vomiting: No Complications none Patient Status: awake, reacts, patent Hydration Status: adequate Drug: Lyla Merlos MD Dec 13, 2018 12:15
--- NOTE | 2018-12-13 12:16 | 48 Hour Post Anesthesia Eval ---
Post Anesthesia Evaluation Procedure: egd/colonoscopy/bx Date of Evaluation: Dec 13, 2018 Time of Evaluation: 08:31 Blood Pressure Systolic: 118 0: 79 Pulse Rate: 91 Respiratory Rate: 18 Temperature (Fahrenheit): 99.0 O2 Sat by Pulse Oximetry: 100 Airway: patent Nausea: No Vomiting: No Pain Intensity: 0 Hydration Status: adequate Cardiopulmonary Status: stable Mental Status/LOC: patient returned to baseline Post-Anesthesia Complications: none Follow-up care needed: N/A Lyla Gordillo MD Dec 13, 2018 12:16
--- NOTE | 2018-12-13 15:15 | Procedure Note ---
DATE OF PROCEDURE: 12/13/2018 SURGEON: Michael Trujillo M.D. PROCEDURE: Colonoscopy with snare polypectomy and biopsy and endoscopy with biopsy. ANESTHESIA: Per Dr. Bowser. INSTRUMENT: Olympus adult flexible upper endoscope and colonoscope. INDICATION: Anemia. REASON FOR PROCEDURE: The procedure, risks, benefits, and possible consequences, including hemorrhage, aspiration, perforation and infection, and alternative treatments, were explained to the patient/legal guardian by Dr. Michael Trujillo and the patient/legal guardian understood and accepted these risks. PROCEDURE IN DETAIL: After informed consent was obtained and the patient was adequately sedated, Olympus upper endoscope was advanced from mouth into the second portion of the duodenum and retroflexion was performed in the stomach. The patient had evidence of moderate portal hypertensive gastropathy. Biopsy from the antrum and body was obtained to rule out H. pylori infection. No obvious esophageal nor gastric varices. At this time, the upper endoscope was retrieved and the patient was turned over for colonoscopy. First rectal exam was performed, which was positive for external hemorrhoids. Then, the scope was advanced from rectum into the cecum documented by appendiceal orifice, ileocecal valve, and right upper quadrant palpation. Quality of prep was good. The patient had total of seven polyps in this colonoscopy examination. These are relatively larger polyps, the one in the sigmoid was the largest one measured 1 cm, removed with hot snare polypectomy technique. The patient had total of seven polyps, three in ascending colon, two in transverse, one in descending, and one in the sigmoid. The patient also had some scattered diverticulosis. Retroflexion of rectum showed evidence of internal hemorrhoids. The patient tolerated the procedure very well without any complication. SUMMARY FINDINGS: 1. Possible portal hypertensive gastropathy, status post biopsy. 2. Seven colonic polyps, removed, see above for details. 3. Diverticulosis. 4. Internal and external hemorrhoids. RECOMMENDATIONS: 1. Follow up pathology. 2. Recommend repeat colonoscopy, no later than three years. I want to thank, Dr. Greer Carmen, for this kind referral. Michael Trujillo M.D. DR: NATALIE JOB#: [id number] CC: Greer Carmen M.D.; Fax#: [phone]
--- NOTE | 2018-12-13 15:54 | NUR ---
NURSE NOTES: Informed Dr. Solitario regarding WBC and DC order. No DC meds from .
[2018-12-13] MEDS ORDERED: cefTRIAXone 1 GM in D5W 55 ML IVPB SCH (17:00)
[2018-12-13] MEDS ORDERED: Tubing IV Secondary IV ONE (17:14)
[2018-12-13] MEDS ORDERED: 1/2 NS 1000ml IV ONE (17:14)
[2018-12-13] MEDS ORDERED: NS 275ml ONE (17:14)
--- NOTE | 2018-12-13 17:15 | NUR ---
NURSE NOTES: Discharge medication education done. Pt. verbalized understanding. Family at bedside participated on DC education. DC package given. kick boxer removed. IV removed intact. All medications given as ordered. Pt. signed a documentation release form. Verbalized understanding of following up with a PMD. Left floor safe accompanied by family member.
--- NOTE | 2018-12-13 19:06 | General Progress Note ---
Assessment/Plan Status: progressing Assessment/Plan: cleared by gi only found polyps per dr johns see dc summary for details Subjective Allergies: Coded Allergies: No Known Allergies (Unverified , 11/15/12) Objective Last 24 Hour Vital Signs Date Time Temp Pulse Resp B/P (MAP) Pulse Ox O2 Delivery O2 Flow Rate FiO2 12/13/18 16:00 98.8 98 20 129/90 (103) 98 12/13/18 12:16 91 18 100 12/13/18 12:15 92 18 100 12/13/18 12:00 98.2 98 20 129/89 (102) 96 12/13/18 12:00 99 12/13/18 09:00 Room Air 12/13/18 08:40 98.4 92 23 124/80 98 Room Air 12/13/18 08:25 94 24 118/79 98 Room Air 12/13/18 08:20 93 22 105/69 100 Nasal Cannula 3 12/13/18 08:17 99.0 92 18 102/67 100 Nasal Cannula 3 12/13/18 08:00 91 12/13/18 04:00 98.9 92 20 101/63 (76) 97 12/13/18 04:00 91 12/13/18 00:00 106 12/13/18 00:00 98.0 95 19 126/78 (94) 97 12/12/18 21:00 Room Air 12/12/18 20:00 98.4 99 20 120/89 (99) 98 12/12/18 19:59 110 Intake and Output 12/12/18 12/13/18 19:00 07:00 Intake Total 116.25 ml Balance 116.25 ml Intake IV Total 116.25 ml # Voids 3 4 Laboratory Tests 12/13/18 05:55: White Blood Count 13.2H, Red Blood Count 2.90L, Hemoglobin 9.9L, Hematocrit 29.7L, Mean Corpuscular Volume 103H, Mean Corpuscular Hemoglobin 34.2H, Mean Corpuscular Hemoglobin Concent 33.3, Red Cell Distribution Width 12.7, Platelet Count 250, Mean Platelet Volume 8.7, Neutrophils (%) (Auto) 78.5H, Lymphocytes ( %) (Auto) 12.7L, Monocytes (%) (Auto) 7.3, Eosinophils (%) (Auto) 0.5, Basophils (%) (Auto) 0.9, Sodium Level 136, Potassium Level 3.4L, Chloride Level 97L, Carbon Dioxide Level 30, Anion Gap 9, Blood Urea Nitrogen 11, Creatinine 0.8, Estimat Glomerular Filtration Rate > 60, Glucose Level 113H, Calcium Level 7.9L, Phosphorus Level 2.9, Magnesium Level 1.6L, Total Bilirubin 1.3H, Direct Bilirubin 0.8H, Aspartate Amino Transf (AST/SGOT) 83H, Alanine Aminotransferase (ALT/SGPT) 16, Alkaline Phosphatase 265H, Total Protein 6.5, Albumin 1.9L, Globulin 4.6, Albumin/Globulin Ratio 0.4L Height (Feet): 5 Height (Inches): 7.00 Weight (Pounds): 194 Greer Carmen MD Dec 13, 2018 19:06
--- NOTE | 2018-12-14 08:40 | Discharge Summary ---
Discharge Summary Discharge Summary _ DATE OF ADMISSION: 12/11/2018 DATE OF DISCHARGE: 12/13/2018 DISCHARGED BY: Dr. Greer Cottrell CONSULTANTS: Dr. Vale Morris [facility] HOSPITAL COURSE: Patient is a 58-year-old male, who presented to ED due to abdominal pain and distention. He had constipation that resolved with drinking prune juice. He also had a bit of blood around the stool from straining. He stopped eating solid foods. He noticed some weight loss. He resumed his diet and again developed his abdominal distention and pain. He complained of abdominal pain 6/ 10, worst when standing or sitting. Denied any medical problems. He admitted to drinking alcohol and last drink was the day prior to admission. He denied chest pain. He had nonproductive cough which seemed to improve a week ago. On evaluation at the ED, WBC was elevated to 12.6. Hemoglobin 11.9, hematocrit 36. Lites were normal. Lactic acid was elevated to 2.9. Magnesium 1.6. Total bilirubin 1.9, direct bilirubin 1.2. AST elevated to 123 and ALT normal at 24. Troponin was negative. Urinalysis with +1 leukocyte esterase, negative nitrite, +2 protein, +2 bilirubin 2-4 urine RBC and 2-4 urine WBC. Urine drug screen negative. Serum alcohol level was low. EKG was in normal sinus rhythm with no acute changes. Chest x-ray did not show any acute disease. CT of the abdomen and pelvis showed basilar atelectasis. Hepatosplenomegaly. Ascites. Unremarkable gallbladder no hydronephrosis. Nonobstructive bowel gas pattern. Bladder was unremarkable. Appendix normal. He was given IV hydration. He was given Pepcid and Reglan. I did empirically on ceftriaxone. He was then admitted for evaluation of abdominal pain with elevated lactic acid level and liver enzymes. He was initially placed on n.p.o. He was given IV hydration. resume specialist was consulted. He was given tramadol. Abdominal ultrasound showed hepatosplenomegaly with mild surface nodularity suggestive of chronic liver disease. There was thickening of gallbladder wall, nonspecific, and negative sonographic Basurto's. Automotive Sales Professional was consulted. Patient was noted to have coagulopathy with INR elevated to 1.2. Anemia work-up iron deficiency. Folate level was low at 2.8. He was given folate supplementation. HIV and hepatitis panel negative. On 12/13/2017, he underwent EGD with colonoscopy. Findings showed 7 colonic polyps which were removed, diverticulosis, internal and external hemorrhoids. He had possible portal hypertensive gastropathy. He was recommended to repeat colonoscopy no later than 3 years. He was tolerating diet well. He was given potassium and magnesium supplements. Blood tests were downtrending. Urine culture did not isolate any growth. He was eventually cleared for discharge home. FINAL DIAGNOSES: Sepsis/SIRS with leukocytosis and tachycardia Hepatosplenomegaly Mild ascites mild anemia Hypertension Hypomagnesemia Hypokalemia EtOH abuse Low folate Chronic liver disease Possible UTI. Possible portal hypertensive history, status post biopsy Seven colonic polyps, status post removal Diverticulosis Internal and external hemorrhoids Status post EGD and colonoscopy on 12/13/2018 DISPOSITION: DC home. DISCHARGE MEDICATIONS: Refer to Discharge Medication List. DISCHARGE INSTRUCTIONS: Follow-up in a week. I have been assigned to complete a discharge summary on this account, I was not involved with the patient's management.--SITA Matute Jacqueline Robles NP Dec 14, 2018 08:40
[2018-12-14] MEDS ORDERED: Thiamine 100mg tab ORAL SCH (09:00)
--- NOTE | 2018-12-14 12:21 | Cardiology Report ---
APPROVED REPORT EKG Measurement Heart [id number] Sinus tachycardia Possible Left atrial enlargement Borderline ECG
--- NOTE | 2018-12-14 13:32 | NUR ---
*-* INSURANCE *-* ALL CLINICALS AND REVIEWS HAVE BEEN FAXED TO: [facility]/ DEPT S/[facility] [place]..NO CERTIFIED REGISTERED NURSE ANESTHETIST ASSIGNED AT THIS TIME...PLEASE FAX THE REVIEW & CLINICAL P- [phone] OPT- 3 F- [phone]...REVIEW/CLINICAL
--- NOTE | 2018-12-16 13:11 | NUR ---
CASE MANAGEMENT: Clinical information (face sheet/ requested DC summary) faxed to [facility]/ DEPT @ [phone]
[2018-12-17 13:24] LABS: APTT 1:1 NORMAL PLASMA 31.3 sec (22.9-30.2); APTT 1:1NP MIX 60M INCUBATION 33.3 sec (22.9-30.2); APTT 1:1NP MIX CONTROL 32.6 sec (22.9-30.2)
== END 2018-12-13 17:15 | disposition home or self-care (01) | DRG 872 ==
LOC: EMR 14:43 → 2E 15:25 → EDBEDREQ 17:19 → 2E 18:01
PROC: 0DBL8ZZ Excision of Transverse Colon, Via Natural or Artificial Opening Endoscopic (ICD-10-PCS; principal; 2018-12-13 07:36)
PROC: 0DBN8ZZ Excision of Sigmoid Colon, Via Natural or Artificial Opening Endoscopic (ICD-10-PCS; principal; 2018-12-13 07:36)
PROC: 0DBM8ZZ Excision of Descending Colon, Via Natural or Artificial Opening Endoscopic (ICD-10-PCS; principal; 2018-12-13 07:36)
PROC: 0DB68ZX Excision of Stomach, Via Natural or Artificial Opening Endoscopic, Diagnostic (ICD-10-PCS; principal; 2018-12-13 07:36)
PROC: 0DBK8ZZ Excision of Ascending Colon, Via Natural or Artificial Opening Endoscopic (ICD-10-PCS; principal; 2018-12-13 07:36)
PROC: 0DB78ZX Excision of Stomach, Pylorus, Via Natural or Artificial Opening Endoscopic, Diagnostic (ICD-10-PCS; principal; 2018-12-13 07:36)
DX: A41.9 Sepsis, unspecified organism (principal); N39.0 Urinary tract infection, site not specified; D68.4 Acquired coagulation factor deficiency; K76.6 Portal hypertension; D61.818 Other pancytopenia; K31.89 Other diseases of stomach and duodenum; K21.9 Gastro-esophageal reflux disease without esophagitis; R16.2 Hepatomegaly with splenomegaly, not elsewhere classified; I10 Essential (primary) hypertension; E83.42 Hypomagnesemia; E87.6 Hypokalemia; K57.90 Diverticulosis of intestine, part unspecified, without perforation or abscess without bleeding; K64.4 Residual hemorrhoidal skin tags; K64.8 Other hemorrhoids; D63.8 Anemia in other chronic diseases classified elsewhere; D52.9 Folate deficiency anemia, unspecified; F10.20 Alcohol dependence, uncomplicated; K63.5 Polyp of colon
CPT/HCPCS: 36415; 71045; 74177; 76700; 80053; 80307; 80329; 81003; 82150; 82247; 82248; 82550; 82607; 82728; 82746; 83540; 83550; 83605; 83690; 83735; 84100; 84484; 85007; 85025; 85044; 85060; 85610; 85730; 86705; 86709; 86803; 87086; 87340; 93005; 94003; 94150; 96361; 96365; 96375; 99285; J2765; J8499

== ENCOUNTER 2019-01-02 13:31 | Inpatient (IN) | payer OTHER ==
[~2019-01-02] VITALS: Ht 165.1 cm; Wt 83.5 kg
--- NOTE | 2019-01-02 14:20 | NUR ---
Kellie browne in EDM - 01/02/19 at 1840 by DEBBI ED Nurse Note: PT INFORMED THAT HE MUST REMAIN NPO PER MD AWARE.
--- NOTE | 2019-01-02 14:46 | Diagnostic Imaging Report ---
Indication: Chest pain Comparison: 12/11/2018 A single view chest radiograph was obtained. Findings: Lung volumes are low. There is basilar atelectasis on the left. Heart size is probably normal. Interstitium is prominent. Bones are unremarkable. IMPRESSION: Very low lung volumes limiting evaluation. Some degree of mild interstitial edema not excluded
--- NOTE | 2019-01-02 16:35 | NUR ---
ED Nurse Note: PT WALKED IN TO ER TODAY FROM HOME. AOX4. PT C/O RIGHT SIDED ABDOMINAL PAIN WITH ABDOMINAL DISTENTION X 3 WEEKS AGO. HOWEVER, PT DENIES ANY PAIN AT THIS TIME. PT DENIES NAUSEA, VOMITING OR DIARRHEA. LAST BM X LAST NIGHT WHICH PT STATES WAS FORMED. ON ASSESSMENT, PT PRESENTS WITH ABDOMINAL DISTENTION THAT IS NONTENDER TO PALPATION. ACTIVE BOWEL SOUNDS IN ALL QUADRANTS. NO SIGNS OF RESPIRATORY DISTRESS, ACCESSORY MUSCLE USE, OR RETRACTIONS NOTED.
[2019-01-02 16:36] VITALS: BP 146/85
[2019-01-02 17:17] LABS: BASOPHILS % (AUTO) 0.8 % (0.0-2.0); EOSINOPHILS % (AUTO) 0.4 % (0.0-3.0); HEMATOCRIT 28.6 % (42.0-52.0); HEMOGLOBIN 9.5 G/DL (14.2-18.0); LYMPHOCYTES % (AUTO) 14.3 % (20.0-45.0); MEAN CORPUSCULAR VOLUME 100 FL (80-99); MONOCYTES % (AUTO) 8.2 % (1.0-10.0); NEUTROPHILS % (AUTO) 76.3 % (45.0-75.0); PLATELET COUNT 200 K/UL (150-450); RED BLOOD COUNT 2.85 M/UL (4.70-6.10); RED CELL DISTRIBUTION WIDTH 11.9 % (11.6-14.8); WHITE BLOOD COUNT 9.1 K/UL (4.8-10.8)
[2019-01-02 17:24] LABS: INR 1.3 (0.9-1.1)
[2019-01-02 17:33] LABS: ANION GAP 7 mmol/L (5-15); BLOOD UREA NITROGEN 12 mg/dL (7-18); CALCIUM 8.6 MG/DL (8.5-10.1); CARBON DIOXIDE 28 MMOL/L (21-32); CHLORIDE 102 MMOL/L (98-107); CREATININE 0.8 MG/DL (0.55-1.30); POTASSIUM 3.8 MMOL/L (3.5-5.1); SODIUM 137 MMOL/L (136-145)
[2019-01-02 18:04] LABS: ALANINE AMINOTRANSFERASE 15 U/L (12-78); ALBUMIN/GLOBULIN RATIO 0.4 (1.0-2.7); ALKALINE PHOSPHATASE 194 U/L (46-116); ASPARTATE AMINO TRANSFERASE 63 U/L (15-37); CKMB 0.6 NG/ML (0.0-3.6); CREATINE KINASE 25 U/L (26-308)
[2019-01-02 18:09] LABS: APPEARANCE,URINE SLIGHTLY CLOUDY; BILIRUBIN, URINE 1+ (NEGATIVE); COLOR,URINE AMBER; GLUCOSE, URINE (UA) NEGATIVE (NEGATIVE); KETONES,URINE 1+ (NEGATIVE); LEUKOCYTE ESTERASE ,URINE 1+ (NEGATIVE); NITRITE,URINE NEGATIVE (NEGATIVE); PH,URINE 5 (4.5-8.0); PROTEIN,URINE 1+ (NEGATIVE); UROBILINOGEN,URINE 4 MG/DL (0.0-1.0)
--- NOTE | 2019-01-02 18:23 | NUR ---
ED Nurse Note: TELE UNIT CALLED FOR PT REPORT. BONNIE ESCALERA NOT READY AT THIS TIME. WILL CALL BACK IN 10 MINUTES.
--- NOTE | 2019-01-02 18:43 | NUR ---
ED Nurse Note: TELE UNIT CALLED FOR PT REPORT. REPORT GIVEN TO BONNIE ESCALERA. PT TAKEN UP TO TELE UNIT VIA GURNEY ON BRICKLAYER TENDER WITH ALL BELONGINGS ACCOMPANIED BY BONNIE ARAGON AND EMT. VSS.
--- NOTE | 2019-01-02 19:30 | NUR ---
NURSE NOTES: Received report from BONNIE ESCALERA. Patient in bed resting, complaining of hunger but no pain at this time. No admission orders at this time. Per Dr. Geovany Escalera is to give orders. Will call Dr. Armenta for admission orders. Patient stable will continue to monitor.
--- NOTE | 2019-01-02 19:52 | Emergency Room Report ---
History of Present Illness General Chief Complaint: Abdominal Pain Source: Patient Present Illness HPI 58-year-old male with history of liver cirrhosis and ascites was recently hospitalized at [facility] here complaining of worsening ascites and pain in the abdomen. Patient was previously seen by Dr. Nieves and Dr. Fulton for 3 days at the hospital. Paracentesis was done however patient complains of increased pain rating a 10 out of 10 and complaining of shortness of breath. Denies chest pain, headache, dizziness, fever and chills. Denies nausea vomiting, diarrhea and constipation. Patient is ambulatory and walks into the ER with stable vital signs. Patient has extensive history of alcohol intake and has distended abdomen. Denies hematuria, urinary symptoms. Has not followed up outpatient with his specialist. Allergies: Coded Allergies: No Known Allergies (Unverified , 01/02/19) Patient History Past Medical History: see triage record Past Surgical History: unable to obtain Pertinent Family History: none Immunizations: UTD Reviewed Nursing Documentation: PMH: Agreed; PSxH: Agreed Nursing Documentation-PMH Hx Cardiac Problems: No Hx Hypertension: Yes - malignant. Hx Cancer: No Hx Gastrointestinal Problems: No Hx Neurological Problems: No Review of Systems All Other Systems: negative except mentioned in HPI Physical Exam Vital Signs Date Time Temp Pulse Resp B/P (MAP) Pulse Ox O2 Delivery O2 Flow Rate FiO2 01/02/19 13:47 98.8 99 16 142/91 (108) 95 Room Air Sp02 EP Interpretation: reviewed, normal General Appearance: normal inspection, well appearing, no apparent distress, alert, GCS 15 Head: normocephalic, atraumatic Eyes: bilateral eye normal inspection, bilateral eye PERRL ENT: normal ENT inspection, hearing grossly normal, normal pharynx, no angioedema, TMs + canals normal Neck: normal inspection, full range of motion, supple, thyroid normal, no meningismus Respiratory: normal inspection, lungs clear, no rhonchi, no wheezing Cardiovascular #1: normal inspection, regular rate, rhythm, no edema, no murmur , normal capillary refill Gastrointestinal: no bruit, distended - Distention with ascites noted, guarding - epigastric, hepatomegaly, spleenomegaly Rectal: deferred Genitourinary: no CVA tenderness Musculoskeletal: normal inspection, back normal, digits/nails normal, gait/ station normal Neurologic: normal inspection, alert, oriented x3, responsive Psychiatric: normal inspection, memory normal Skin: no rash, jaundice Lymphatic: normal inspection, no adenopathy Medical Decision Making PA Attestation Diagnosis and treatment plans were reviewed and discussed with my supervising physician Dr. Bryant Diagnostic Impression: Primary Impression: Liver cirrhosis Additional Impression: Ascites ER Course 58-year-old male with history of liver cirrhosis and ascites was recently hospitalized at [facility] here complaining of worsening ascites and pain in the abdomen. Patient was previously seen by Dr. Nieves and Dr. Fulton for 3 days at the hospital. Paracentesis was done however patient complains of increased pain rating a 10 out of 10 and complaining of shortness of breath. Denies chest pain, headache, dizziness, fever and chills. Denies nausea vomiting, diarrhea and constipation. Patient is ambulatory and walks into the ER with stable vital signs. Patient has extensive history of alcohol intake and has distended abdomen. Denies hematuria, urinary symptoms. Has not followed up outpatient with his specialist. Ddx considered but are not limited to: appendicitis, cholecystis, gastritis, gastroenteritis, UTI, pyelonephritis, SBO, diverticulitis, influenza with GI manifestation, NM, liver cirrhosis and ascites Vital signs: are WNL, pt. is afebrile H&PE are most consistent with: Liver cirrhosis and ascites ORDERS: abdominal CT, abdominal pain set, EKG, abdominal US ED INTERVENTIONS: None required at this time. Patient was admited with diagnosis of liver cirrhosis and ascites to Dr. Jones under supervision of Dr.: Bryant pt stable at time of admission EKG Diagnostic Results Rate: normal Rhythm: NSR ST Segments: no acute changes Chest X-Ray Diagnostic Results Chest X-Ray Diagnostic Results : Chest X-Ray Ordered: Yes # of Views/Limited/Complete: 1 View Indication: Other EP Interpretation: Yes PA Xray: Interpretation reviewed, by supervising MD, and agrees with findings. Interpretation: no consolidation, no effusion, no pneumothorax, no acute cardiopulmonary disease Impression: No acute disease Electronically Signed by: Peg Mooney PA-C CT/MRI/US Diagnostic Results CT/MRI/US Diagnostic Results : Imaging Test Ordered: CT abdomen pelvis Impression Hepatomegaly, splenomegaly, liver cirrhosis Last Vital Signs Date Time Temp Pulse Resp B/P (MAP) Pulse Ox O2 Delivery O2 Flow Rate FiO2 01/02/19 18:41 98.5 84 22 142/82 98 Room Air Disposition: ADMITTED INPATIENT Condition: Stable Referrals: Greer Carmen MD (PCP) Peg Martinez Jan 02, 2019 19:52
[2019-01-02 20:00] VITALS: BP 127/89
--- NOTE | 2019-01-02 20:10 | NUR ---
NURSE NOTES: Called for admission orders from Dr. Armenta, Per Dr. Armenta he is not compensation intern at this time, refer to MD compensation intern.
--- NOTE | 2019-01-02 22:10 | NUR ---
NURSE NOTES: Admission orders received.
[2019-01-03] VITALS: BP 114/78
[2019-01-03 04:00] VITALS: BP 116/76
[2019-01-03 07:20] LABS: BASOPHILS % (AUTO) 0.8 % (0.0-2.0); EOSINOPHILS % (AUTO) 1.3 % (0.0-3.0); HEMATOCRIT 26.3 % (42.0-52.0); HEMOGLOBIN 8.4 G/DL (14.2-18.0); LYMPHOCYTES % (AUTO) 18.1 % (20.0-45.0); MEAN CORPUSCULAR VOLUME 102 FL (80-99); MONOCYTES % (AUTO) 12.6 % (1.0-10.0); NEUTROPHILS % (AUTO) 67.3 % (45.0-75.0); PLATELET COUNT 190 K/UL (150-450); RED BLOOD COUNT 2.57 M/UL (4.70-6.10); RED CELL DISTRIBUTION WIDTH 12.2 % (11.6-14.8); WHITE BLOOD COUNT 7.4 K/UL (4.8-10.8)
--- NOTE | 2019-01-03 07:31 | NUR ---
HAND-OFF: Report given to BONNIE Storey. Patine in bed resting. Stable at Hand-off.
--- NOTE | 2019-01-03 07:34 | NUR ---
NURSE NOTES: Received report from Peace Oliveira. Patient awake and alert. No complain of pain or discomfort. safety precautions in place. will monitor.
[2019-01-03 07:35] LABS: INR 1.3 (0.9-1.1)
[2019-01-03 07:43] LABS: ALANINE AMINOTRANSFERASE 12 U/L (12-78); ALBUMIN 1.8 G/DL (3.4-5.0); ALBUMIN/GLOBULIN RATIO 0.4 (1.0-2.7); ALKALINE PHOSPHATASE 162 U/L (46-116); ANION GAP 7 mmol/L (5-15); ASPARTATE AMINO TRANSFERASE 46 U/L (15-37); BILIRUBIN,TOTAL 0.6 MG/DL (0.2-1.0); BLOOD UREA NITROGEN 13 mg/dL (7-18); CALCIUM 8.3 MG/DL (8.5-10.1); CARBON DIOXIDE 28 MMOL/L (21-32); CHLORIDE 101 MMOL/L (98-107); CREATININE 0.8 MG/DL (0.55-1.30); POTASSIUM 3.8 MMOL/L (3.5-5.1); SODIUM 136 MMOL/L (136-145)
[2019-01-03] MEDS: Thiamine 100mg tab ORAL SCH (08:25)
[2019-01-03 08:33] VITALS: BP 117/81
--- NOTE | 2019-01-03 08:36 | NUR ---
NURSE NOTES: Patient has agreed to procedure and signed consent. Consent is in chart.
--- NOTE | 2019-01-03 09:25 | Diagnostic Imaging Report ---
Indication: Abdominal pain Technique: Continuous helical transaxial imaging of the abdomen and pelvis was obtained from the lung bases to the pubic symphysis during intravenous contrast administration. Coronal 2-D reformats were also obtained. Study obtained in a Siemens sensation [address] Automatic Exposure Control was utilized. Total Dose length Product (DLP): 988.[address] Dose Index Volume (CTDIvol): 15.7 mGy Comparison: None Findings: There is moderate to severe ascites. The spleen is enlarged. Gallbladder is contracted. There is no hydronephrosis. Aortoiliac calcifications are present. Bowel gas pattern is nonobstructive. Bladder is nondistended. The pancreas is unremarkable. There is no adrenal mass. Trace left pleural effusion and posterior basal atelectasis seen at both lung bases. IMPRESSION: Severe ascites. Splenomegaly Basilar atelectasis. Trace left pleural effusion Atherosclerotic disease The CT scanner at [facility] is accredited by the [employer] and the scans are performed using dose optimization techniques as appropriate to a performed exam including Automatic Exposure control.
[2019-01-03 12:04] VITALS: BP 122/81
--- NOTE | 2019-01-03 12:12 | NUR ---
NURSE NOTES: Received order from Dr. Armenta. admit patient as inpatient. Will carry out order.
--- NOTE | 2019-01-03 15:46 | NUR ---
CASE MANAGEMENT:REVIEW 58 YR OLD MALE PRESENTED TO ER CC: ABDOMINAL PAIN SI: ASCITES. LIVER CIRRHOSIS 98.7 99 16 142/91 95% ON RA H/H-9.5/28.6 IS: PROTONIX PO QD THIAMINE PO QD CT ABD/PELVIS CHEST XRAY ABD US NPO : TO TELEMETRY IS: PARACENTESIS INTERQUAL CRITERIA MET
--- NOTE | 2019-01-03 16:22 | Diagnostic Imaging Report ---
Indications: Ascites Procedure: Informed consent obtained. Ultrasound used to localize optimal puncture site. Sterile prepping and draping over the optimum site. Local anesthesia with 1% lidocaine. Under real-time ultrasound guidance, puncture of the peritoneal space performed using paracentesis needle. Digital image was saved and archived. Stylet removed. Catheter placed to vacuum bottle suction. Fluid was aspirated. Patient tolerated procedure well, without immediate complication. Findings: Followup sonography demonstrates complete resolution of peritoneal fluid Impression: Successful ultrasound-guided paracentesis, yielding 10 liters of fluid
[2019-01-03 16:41] VITALS: BP 135/82
--- NOTE | 2019-01-03 16:45 | NUR ---
NURSE NOTES: patient arrived to the floor S/P paracentesis 10 L fluid out. VSS, Denies pain or discomfort. R lower abdominal side noted with bandage noted, clean dry and intact. Will follow.
--- NOTE | 2019-01-03 18:56 | History and Physical ---
History of Present Illness General Date patient seen: Jan 03, 2019 Time patient seen: 18:00 Reason for Hospitalization: Abdominal Pain Present Illness HPI 58-year-old male who returns to the ED after a prior Hospitalization 3 weeks ago which is outlined below: abdominal pain and distention. He had constipation that resolved with drinking prune juice. He also had a bit of blood around the stool from straining. He stopped eating solid foods. He noticed some weight loss. He resumed his diet and again developed his abdominal distention and pain. He complained of abdominal pain 6/10, worst when standing or sitting. Denied any medical problems. He admitted to drinking alcohol and last drink was the day prior to admission. He denied chest pain. He had nonproductive cough which seemed to improve a week ago. On evaluation at the ED, WBC was elevated to 12.6. Hemoglobin 11.9, hematocrit 36. Lites were normal. Lactic acid was elevated to 2.9. Magnesium 1.6. Total bilirubin 1.9, direct bilirubin 1.2. AST elevated to 123 and ALT normal at 24. Troponin was negative. Urinalysis with +1 leukocyte esterase, negative nitrite, +2 protein, +2 bilirubin 2-4 urine RBC and 2-4 urine WBC. Urine drug screen negative. Serum alcohol level was low. EKG was in normal sinus rhythm with no acute changes. Chest x-ray did not show any acute disease. CT of the abdomen and pelvis showed basilar atelectasis. Hepatosplenomegaly. Ascites. Unremarkable gallbladder no hydronephrosis. Nonobstructive bowel gas pattern. Bladder was unremarkable. Appendix normal. He was given IV hydration. He was given Pepcid and Reglan. I did empirically on ceftriaxone. He was then admitted for evaluation of abdominal pain with elevated lactic acid level and liver enzymes. He was initially placed on n.p.o. He was given IV hydration. migration specialist was consulted. He was given tramadol. Abdominal ultrasound showed hepatosplenomegaly with mild surface nodularity suggestive of chronic liver disease. There was thickening of gallbladder wall, nonspecific, and negative sonographic Basurto's. Statistical Assistant was consulted. Patient was noted to have coagulopathy with INR elevated to 1.2. Anemia work-up iron deficiency. Folate level was low at 2.8. He was given folate supplementation. HIV and hepatitis panel negative. On 12/13/2017, he underwent EGD with colonoscopy. Findings showed 7 colonic polyps which were removed, diverticulosis, internal and external hemorrhoids. He had possible portal hypertensive gastropathy. He was recommended to repeat colonoscopy no later than 3 years. He was tolerating diet well. He was given potassium and magnesium supplements. Blood tests were downtrending. Urine culture did not isolate any growth. He was eventually cleared for discharge home The patient was noted to have severe ascites on admission and paracentesis was recommended. He denies recent alcohol use or abuse, however in discussion with him he has been and ON and OFF alcohol drinker of Tequila and Beer until 2014 when he was told to have elevated liver function tests. Last admission there was no final diagnosis per patient report and he noted muscle mass loss, gynecomastia, abdominal distention and pain with associated shortness of breath due to ascites. Today, 10 lt were removed by paracentesis and he is feeling much better. He is concerned and affraid of cancer. Allergies: Coded Allergies: No Known Allergies (Unverified , 01/02/19) Medication History Scheduled No Known Medications* (NKM - No Known Medications*), 0 ., (Reported) No Known Medications* (NKM - No Known Medications*), 0 ., (Reported) Pantoprazole* (Protonix*), 40 MG ORAL DAILY, (Reported) Thiamine Hcl* (Vitamin B-1*), 100 MG ORAL DAILY, (Reported) Patient History Healthcare decision maker Resuscitation status Full Code Advanced Directive on File Review of Systems Constitutional: Reports: malaise, weakness Cardiovascular: Reports: edema Gastrointestinal: Reports: abdominal pain, other All Other Systems: negative except mentioned in HPI Physical Exam General Appearance: WD/WN Lines, tubes and drains: peripheral HEENT: normocephalic Neck: non-tender Respiratory/Chest: lungs clear, normal breath sounds Cardiovascular/Chest: normal peripheral pulses, normal rate Extremities: normal range of motion Skin Exam: normal pigmentation 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 Last 24 Hour Vital Signs Date Time Temp Pulse Resp B/P (MAP) Pulse Ox O2 Delivery O2 Flow Rate FiO2 01/03/19 16:41 99.0 81 18 135/82 (99) 92 01/03/19 16:00 95 01/03/19 12:04 99.3 82 20 122/81 (95) 92 01/03/19 12:00 98 01/03/19 09:00 95 01/03/19 09:00 Room Air 01/03/19 08:33 99.5 88 18 117/81 (93) 92 01/03/19 04:00 93 01/03/19 04:00 98.1 83 20 116/76 (89) 94 01/03/19 00:00 105 01/03/19 00:00 98.0 96 20 114/78 (90) 96 01/02/19 20:00 118 01/02/19 20:00 Room Air 01/02/19 20:00 100.3 101 18 127/89 (102) 94 Intake and Output 01/02/19 01/03/19 19:00 07:00 Intake Total 120 ml Balance 120 ml Intake Oral 120 ml # Voids 1 1 # Bowel Movements 1 Laboratory Tests Test 01/03/19 06:45 White Blood Count 7.4 K/UL (4.8-10.8) Red Blood Count 2.57 M/UL (4.70-6.10) L Hemoglobin 8.4 G/DL (14.2-18.0) L Hematocrit 26.3 % (42.0-52.0) L Mean Corpuscular Volume 102 FL (80-99) H Mean Corpuscular Hemoglobin 32.6 PG (27.0-31.0) H Mean Corpuscular Hemoglobin Concent 31.8 G/DL (32.0-36.0) L Red Cell Distribution Width 12.2 % (11.6-14.8) Platelet Count 190 K/UL (150-450) Mean Platelet Volume 7.3 FL (6.5-10.1) Neutrophils (%) (Auto) 67.3 % (45.0-75.0) Lymphocytes (%) (Auto) 18.1 % (20.0-45.0) L Monocytes (%) (Auto) 12.6 % (1.0-10.0) H Eosinophils (%) (Auto) 1.3 % (0.0-3.0) Basophils (%) (Auto) 0.8 % (0.0-2.0) Prothrombin Time 13.6 SEC (9.30-11.50) H Prothromb Time International Ratio 1.3 (0.9-1.1) H Sodium Level 136 MMOL/L (136-145) Potassium Level 3.8 MMOL/L (3.5-5.1) Chloride Level 101 MMOL/L (98-107) Carbon Dioxide Level 28 MMOL/L (21-32) Anion Gap 7 mmol/L (5-15) Blood Urea Nitrogen 13 mg/dL (7-18) Creatinine 0.8 MG/DL (0.55-1.30) Estimat Glomerular Filtration Rate > 60 mL/min (>60) Glucose Level 105 MG/DL (74-106) Calcium Level 8.3 MG/DL (8.5-10.1) L Total Bilirubin 0.6 MG/DL (0.2-1.0) Aspartate Amino Transf (AST/SGOT) 46 U/L (15-37) H Alanine Aminotransferase (ALT/SGPT) 12 U/L (12-78) Alkaline Phosphatase 162 U/L (46-116) H Total Protein 6.4 G/DL (6.4-8.2) Albumin 1.8 G/DL (3.4-5.0) L Globulin 4.6 g/dL Albumin/Globulin Ratio 0.4 (1.0-2.7) L Height (Feet): 5 Height (Inches): 5.00 Weight (Pounds): 184 Medications Current Medications Medications (Trade) Dose Ordered Sig/Jose Ramon Route PRN Reason Start Time Stop Time Status Last Admin Dose Admin Pantoprazole (Protonix) 40 mg DAILY ORAL 01/03/19 09:00 02/02/19 08:59 01/03/19 08:25 Thiamine HCl (Vitamin B1) 100 mg DAILY ORAL 01/03/19 09:00 02/02/19 08:59 01/03/19 08:25 Assessment/Plan Assessment/Plan: 58-year-old male, who presented to ED due to abdominal pain and distention after a prior hospitalization 3 weeks ago. # Abdominal pain Ddx Ascites due to hepatosplenomegaly with mild surface nodularity suggestive of chronic liver disease. ? alcoholic liver disease vs DIAZ vs other Prior admission hepatitis panel and HIV negative Paracentesis 10 lt completed. Follow up Cytology, cell count, r/o SBP, AFP added GI consultation requested and will need to discuss plan of care. Institution of diuretic regimen with spironolactone/furosemide pending GI INPUT. Ascites appears to developed rather quickly in 3 weeks and patient denies acute alcohol intake. ? etiology Monitor I/O Low salt diet # Generalized weakness Recommend PT follow up for mobility # CKD 3 Empiric albumin 5 % due to high volume paracentesis # GI ppx with PPI No prior hematemesis or evidence of portal HTN # FULL CODE Rosalba Armenta MD Jan 03, 2019 18:56
--- NOTE | 2019-01-03 19:15 | NUR ---
NURSE NOTES: Received pt and report from BONNIE Granger. Observed pt resting in bed with both eyes open and watching television. Pt is A/Ox4. air sampling and monitoring is in placed, IV site intact, asymptomatic and patent. Bed is in the lowest position and locked. Call light within reach. No signs/symptoms of acute distress noted at this time. Will continue plan of care.
--- NOTE | 2019-01-03 19:55 | NUR ---
HAND-OFF: Report given to Peace Samuel.Patient stable. Plan of care endorsed.
[2019-01-03 20:00] VITALS: BP 119/75
[2019-01-04] VITALS: BP 117/79
[2019-01-04 04:00] VITALS: BP 113/64
[2019-01-04 06:38] LABS: BASOPHILS % (AUTO) 0.7 % (0.0-2.0); EOSINOPHILS % (AUTO) 1.2 % (0.0-3.0); HEMATOCRIT 29.2 % (42.0-52.0); HEMOGLOBIN 9.4 G/DL (14.2-18.0); LYMPHOCYTES % (AUTO) 20.9 % (20.0-45.0); MEAN CORPUSCULAR VOLUME 102 FL (80-99); MONOCYTES % (AUTO) 10.7 % (1.0-10.0); NEUTROPHILS % (AUTO) 66.5 % (45.0-75.0); PLATELET COUNT 172 K/UL (150-450); RED BLOOD COUNT 2.87 M/UL (4.70-6.10); RED CELL DISTRIBUTION WIDTH 12.5 % (11.6-14.8); WHITE BLOOD COUNT 7.1 K/UL (4.8-10.8)
[2019-01-04 06:56] LABS: ALANINE AMINOTRANSFERASE 11 U/L (12-78); ALBUMIN 1.6 G/DL (3.4-5.0); ALBUMIN/GLOBULIN RATIO 0.4 (1.0-2.7); ALKALINE PHOSPHATASE 155 U/L (46-116); ANION GAP 5 mmol/L (5-15); ASPARTATE AMINO TRANSFERASE 41 U/L (15-37); BILIRUBIN,TOTAL 0.6 MG/DL (0.2-1.0); BLOOD UREA NITROGEN 12 mg/dL (7-18); CALCIUM 8.2 MG/DL (8.5-10.1); CARBON DIOXIDE 29 MMOL/L (21-32); CHLORIDE 101 MMOL/L (98-107); CREATININE 0.8 MG/DL (0.55-1.30); POTASSIUM 3.7 MMOL/L (3.5-5.1); SODIUM 135 MMOL/L (136-145)
--- NOTE | 2019-01-04 07:40 | NUR ---
NURSE NOTES: Report received from BONNIE Samuel. Pt shows no signs of distress, A+Ox4, denies pain/SOB. Respirations are even and unlabored on room air. IV site is patent and saline locked. Bed is at lowest position, brakes engaged, siderails x2, bed alarm on, and call light within reach. Pt is in stable condition; will continue to monitor.
--- NOTE | 2019-01-04 07:43 | NUR ---
NURSE NOTES: Report given to BONNIE Ornelas.
[2019-01-04 08:00] VITALS: BP 116/77
[2019-01-04] MEDS: Thiamine 100mg tab ORAL SCH (08:28)
--- NOTE | 2019-01-04 09:39 | NUR ---
CASE MANAGEMENT:REVIEW 01/04/19 SI: ASCITES. LIVER CIRRHOSIS S/P PARACENTESIS....10L REMOVED 97.1 95 17 113/64 98% ON RA H/H-9.4/29.2 CA-8.2 AST/ALt+41/11 AMMONIA+50 IS: LACTULOSE PO QD PROTONIX PO QD THIAMINE PO QD : TELEMETRY UNIT DCP: FROM HOME
[2019-01-04] MEDS: Lactulose 10gm/15ml UDC ORAL SCH (10:01)
--- NOTE | 2019-01-04 11:14 | GI Initial Consult Note ---
History of Present Illness General Date patient seen: Jan 04, 2019 Time patient seen: 11:14 Reason for Hospitalization: Abdominal Pain Referring physician: LORETTA Reason for Consultation: ASCITES Present Illness HPI 58-year-old male with history of liver cirrhosis and ascites was recently hospitalized at [facility] here complaining of worsening ascites and pain in the abdomen. Patient was previously seen by Dr. Trujillo and Dr. Fulton for 3 days at the hospital. Paracentesis was done however patient complains of increased pain rating a 10 out of 10 and complaining of shortness of breath. Denies chest pain, headache, dizziness, fever and chills. Denies nausea vomiting, diarrhea and constipation. Patient is ambulatory and walks into the ER with stable vital signs. Patient has extensive history of alcohol intake and has distended abdomen. Denies hematuria, urinary symptoms. Has not followed up outpatient with his specialist. GI consulted for ascites. Patient seen, awake alert and oriented x4 no apparent distress. Reported abdominal distention and pain, now status post paracentesis yielding approximately 10 L of fluid removed. Patient had endoscopy and colonoscopy approximately 3 weeks ago noted with possible portal hypertension gastropathy with no evidence of esophageal or gastric varices. In addition a 7 colonic polyps were removed, diverticulosis, internal and external hemorrhoids noted. Pathology of the antrum noted moderate chronic gastritis with intestinal metaplasia, equivocal for H. pylori and negative for dysplasia for or malignancy. Is noted that the patient was positive for H. pylori in the gastric body. Patient presents today with hemoglobin of 9.4, ammonia level of 50, AST 41, ALT 11, alkaline phosphatase 155. Home Meds Reported Medications No Known Medications* (NKM - No Known Medications*) ., 0 ., 0 Refills 12/11/18 Pantoprazole* (PROTONIX*) 40 Mg Tablet.dr, 40 MG ORAL DAILY, TAB 03/19/15 Thiamine Hcl* (VITAMIN B-1*) 100 Mg Tablet, 100 MG ORAL DAILY, #30 TAB 0 Refills 03/19/15 No Known Medications* (NKM - No Known Medications*) ., 0 . 11/15/12 Med list reviewed/reconciled: Yes Allergies: Coded Allergies: No Known Allergies (Unverified , 01/02/19) Patient History History Provided By: Patient, Medical Record [facility] Narrative Past Medical History: see triage record Past Surgical History: unable to obtain Pertinent Family History: none Immunizations: UTD Reviewed Nursing Documentation: PMH: Agreed; PSxH: Agreed Nursing Documentation-PMH Hx Cardiac Problems: No Hx Hypertension: Yes - malignant. Hx Cancer: No Hx Gastrointestinal Problems: No Hx Neurological Problems: No Social History: Reports: alcohol use Review of Systems All Other Systems: negative except mentioned in HPI Physical Exam Vital Signs Date Time Temp Pulse Resp B/P (MAP) Pulse Ox O2 Delivery O2 Flow Rate FiO2 01/02/19 13:47 98.8 99 16 142/91 (108) 95 Room Air Sp02 EP Interpretation: reviewed, normal Labs Laboratory Tests Test 01/03/19 15:20 01/04/19 05:15 Body Fluid Source Paracentesis Body Fluid Volume 24 mL Body Fluid Appearance Hazy (Clear) Body Fluid RBC 391 /CUMM Body Fluid Total Nucleated Cells 30 /CUMM Body Fluid Polynuclear WBCs (%) 3 % Body Fluid Mononuclear WBCs (%) 94 % Body Fluid Mesothelial Cells (%) 3 % White Blood Count 7.1 K/UL (4.8-10.8) Red Blood Count 2.87 M/UL (4.70-6.10) L Hemoglobin 9.4 G/DL (14.2-18.0) L Hematocrit 29.2 % (42.0-52.0) L Mean Corpuscular Volume 102 FL (80-99) H Mean Corpuscular Hemoglobin 32.8 PG (27.0-31.0) H Mean Corpuscular Hemoglobin Concent 32.3 G/DL (32.0-36.0) Red Cell Distribution Width 12.5 % (11.6-14.8) Platelet Count 172 K/UL (150-450) Mean Platelet Volume 8.0 FL (6.5-10.1) Neutrophils (%) (Auto) 66.5 % (45.0-75.0) Lymphocytes (%) (Auto) 20.9 % (20.0-45.0) Monocytes (%) (Auto) 10.7 % (1.0-10.0) H Eosinophils (%) (Auto) 1.2 % (0.0-3.0) Basophils (%) (Auto) 0.7 % (0.0-2.0) Sodium Level 135 MMOL/L (136-145) L Potassium Level 3.7 MMOL/L (3.5-5.1) Chloride Level 101 MMOL/L (98-107) Carbon Dioxide Level 29 MMOL/L (21-32) Anion Gap 5 mmol/L (5-15) Blood Urea Nitrogen 12 mg/dL (7-18) Creatinine 0.8 MG/DL (0.55-1.30) Estimat Glomerular Filtration Rate > 60 mL/min (>60) Glucose Level 105 MG/DL (74-106) Calcium Level 8.2 MG/DL (8.5-10.1) L Total Bilirubin 0.6 MG/DL (0.2-1.0) Aspartate Amino Transf (AST/SGOT) 41 U/L (15-37) H Alanine Aminotransferase (ALT/SGPT) 11 U/L (12-78) L Alkaline Phosphatase 155 U/L (46-116) H Ammonia 50 umol/L (11-32) H Total Protein 6.1 G/DL (6.4-8.2) L Albumin 1.6 G/DL (3.4-5.0) L Globulin 4.5 g/dL Albumin/Globulin Ratio 0.4 (1.0-2.7) L Alpha Fetoprotein Pending General Appearance: well appearing, no apparent distress, alert Head: normocephalic EENT: PERRL/EOMI, normal ENT inspection Neck: supple Respiratory: normal breath sounds, no respiratory distress Cardiovascular: normal rate Gastrointestinal: normal inspection, non tender, soft, normal bowel sounds, non -distended, ascites Rectal: deferred Genitourinary: deferred Musculoskeletal: normal inspection, back normal Neurologic: normal inspection, alert, oriented x3, responsive Psychiatric: normal inspection, judgement/insight normal, memory normal Skin: normal inspection, normal color, no rash, warm/dry, palpation normal, well hydrated Lymphatic: normal inspection, no adenopathy Current Medications Current Medications Medications (Trade) Dose Ordered Sig/Jose Ramon Route PRN Reason Start Time Stop Time Status Last Admin Dose Admin Lactulose (Cephulac) 10 gm DAILY ORAL 01/04/19 10:00 02/03/19 09:59 01/04/19 10:01 Pantoprazole (Protonix) 40 mg DAILY ORAL 01/03/19 09:00 02/02/19 08:59 01/04/19 08:28 Thiamine HCl (Vitamin B1) 100 mg DAILY ORAL 01/03/19 09:00 02/02/19 08:59 01/04/19 08:28 GI: Plan Problems: (1) Alcoholism (2) Malignant hypertension (3) Liver cirrhosis (4) Ascites Plan Recent history of endoscopic and colonoscopy 12/13/18 SUMMARY FINDINGS: 1. Possible portal hypertensive gastropathy, status post biopsy. 2. Seven colonic polyps, removed, see above for details. 3. Diverticulosis. 4. Internal and external hemorrhoids. Ascites secondary to possible liver cirrhosis H. pylori positive ETOH abuse Status post paracentesis yielding 10 L of fluid, negative for SBP Obtain abdominal ultrasound to evaluate liver, okay to resume diet after Patient may benefit from outpatient fibroid scan to stage cirrhosis if confirmed Start low-dose lactulose Lasix 40 mg p.o. We will check thyroid panel, and CEA Discussed with Dr. Trujillo. Thank you for this patient referral, we will follow. The patient was seen and examined at bedside and all new and available data was reviewed in the patients chart. I agree with the above findings, impression and plan. (Patient seen earlier today. Signature stamp does not reflect patient encounter time.). - MD Marie KeatingSan Carlos Apache Tribe Healthcare CorporationDebora BUCKNER Jan 04, 2019 11:14
--- NOTE | 2019-01-04 11:41 | NUR ---
*-* INSURANCE *-* ALL CLINICALS AND REVIEWS HAVE BEEN FAXED TO: [facility] NO CONNECTION WORKER ASSIGNED AT THIS TIME.. PLEASE FAX THE REVIEW AND CLINICAL P- [phone]...OPT-1- 3 F- [phone]....REVIEW/CLINICAL
[2019-01-04 12:00] VITALS: BP 119/72
--- NOTE | 2019-01-04 14:43 | Diagnostic Imaging Report ---
Indication: Abdominal distention, abnormal liver function tests Technique: Machado-scale and duplex images of the upper abdomen were obtained Comparison: none Findings: There is a small amount of ascites fluid present, despite previous day's paracentesis. Gallbladder is incompletely distended. No definite stones, wall thickening, nor pericholecystic fluid. Although not thickened according to measurements, the gallbladder wall appears slightly edematous. Sonographic Basurto's sign is negative. Common bile duct measures 5 mm in diameter. No intrahepatic biliary ductal dilatation. Liver demonstrates normal echogenicity, no focal abnormality. However, it is somewhat enlarged, an there is suggestion of surface nodularity. Portal vein and hepatic veins are patent. Pancreas is unremarkable. The spleen is enlarged, measuring 13.7 cm long axis dimension Left kidney measures 11.6 cm in length. Right kidney measures 11.7 cm length. Both kidneys demonstrate normal echogenicity. There is no hydronephrosis. No focal abnormality . Abdominal aorta is partially obscured by bowel gas, visualized portions are non-aneurysmal . Impression: Small amount of ascites, apparently reaccumulated since previous day's paracentesis Hepatomegaly. Hepatic surface nodularity raises concern for cirrhosis Evidence of mild gallbladder wall edema, suspect related to the above. No definite gallstones or colby gallbladder wall thickening. Negative for dilated bile ducts Splenomegaly Note inability to visualize portions of the abdominal aorta
[2019-01-04 16:00] VITALS: BP 116/75
--- NOTE | 2019-01-04 17:12 | General Progress Note ---
Assessment/Plan Assessment/Plan: 58-year-old male, who presented to ED due to abdominal pain and distention after a prior hospitalization 3 weeks ago. # Abdominal pain Ddx Ascites due to hepatosplenomegaly with mild surface nodularity suggestive of chronic liver disease. ? alcoholic liver disease vs DIAZ vs other Prior admission hepatitis panel and HIV negative Paracentesis 10 lt completed. Follow up Cytology, cell count, r/o SBP, AFP added GI consultation noted. Abdominal ultrasound and diuresis with Furosemide started. Ascites appears to developed rather quickly in 3 weeks and patient denies acute alcohol intake. ? etiology Monitor I/O Low salt diet # Generalized weakness Recommend PT follow up for mobility # CKD 3 Empiric albumin 5 % due to high volume paracentesis given 01/03 # GI ppx with PPI No prior hematemesis or evidence of portal HTN # FULL CODE Subjective ROS Limited/Unobtainable: No Gastrointestinal/Abdominal: Reports: abdomen distended, abdominal pain Allergies: Coded Allergies: No Known Allergies (Unverified , 01/02/19) All Systems: reviewed and negative except above Objective Last 24 Hour Vital Signs Date Time Temp Pulse Resp B/P (MAP) Pulse Ox O2 Delivery O2 Flow Rate FiO2 01/04/19 12:00 98.0 97 18 119/72 (88) 95 01/04/19 09:00 Room Air 01/04/19 08:00 111 01/04/19 08:00 98.4 98 18 116/77 (90) 94 01/04/19 04:00 95 01/04/19 04:00 97.1 95 17 113/64 (80) 98 01/04/19 00:00 97.5 106 19 117/79 (92) 96 01/04/19 00:00 104 01/03/19 21:00 Room Air 01/03/19 20:00 106 01/03/19 20:00 99.0 104 18 119/75 (90) 97 Intake and Output 01/03/19 01/04/19 19:00 07:00 Intake Total 240 ml Balance 240 ml Intake Oral 240 ml # Voids 2 Laboratory Tests 01/04/19 05:15: White Blood Count 7.1, Red Blood Count 2.87L, Hemoglobin 9.4L, Hematocrit 29.2L , Mean Corpuscular Volume 102H, Mean Corpuscular Hemoglobin 32.8H, Mean Corpuscular Hemoglobin Concent 32.3, Red Cell Distribution Width 12.5, Platelet Count 172, Mean Platelet Volume 8.0, Neutrophils (%) (Auto) 66.5, Lymphocytes (% ) (Auto) 20.9, Monocytes (%) (Auto) 10.7H, Eosinophils (%) (Auto) 1.2, Basophils (%) (Auto) 0.7, Sodium Level 135L, Potassium Level 3.7, Chloride Level 101, Carbon Dioxide Level 29, Anion Gap 5, Blood Urea Nitrogen 12, Creatinine 0.8, Estimat Glomerular Filtration Rate > 60, Glucose Level 105, Calcium Level 8.2L, Total Bilirubin 0.6, Aspartate Amino Transf (AST/SGOT) 41H, Alanine Aminotransferase (ALT/SGPT) 11L, Alkaline Phosphatase 155H, Ammonia 50H , Total Protein 6.1L, Albumin 1.6L, Globulin 4.5, Albumin/Globulin Ratio 0.4L, Alpha Fetoprotein [Pending] Height (Feet): 5 Height (Inches): 5.00 Weight (Pounds): 184 General Appearance: WD/WN EENT: PERRL/EOMI Cardiovascular: normal rate Respiratory/Chest: chest wall non-tender, lungs clear Abdomen: distended, tender, hepatomegaly Extremities: normal range of motion Edema: trace edema 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
--- NOTE | 2019-01-04 19:16 | NUR ---
HAND-OFF: Report given to BONNIE Gloria. Pt is in stable condition; plan of care endorsed.
[2019-01-04 20:00] VITALS: BP 128/87
--- NOTE | 2019-01-04 20:19 | NUR ---
HAND-OFF: Report taken from Ceci NICOLE. Patient stable.
[2019-01-05] VITALS: BP 109/73
[2019-01-05 04:00] VITALS: BP 101/63
[2019-01-05 07:22] LABS: BASOPHILS % (AUTO) 0.9 % (0.0-2.0); EOSINOPHILS % (AUTO) 1.3 % (0.0-3.0); HEMATOCRIT 29.9 % (42.0-52.0); HEMOGLOBIN 9.6 G/DL (14.2-18.0); LYMPHOCYTES % (AUTO) 24.8 % (20.0-45.0); MEAN CORPUSCULAR VOLUME 101 FL (80-99); MONOCYTES % (AUTO) 9.4 % (1.0-10.0); NEUTROPHILS % (AUTO) 63.6 % (45.0-75.0); PLATELET COUNT 164 K/UL (150-450); RED BLOOD COUNT 2.96 M/UL (4.70-6.10); RED CELL DISTRIBUTION WIDTH 12.1 % (11.6-14.8)
--- NOTE | 2019-01-05 07:36 | NUR ---
HAND-OFF: Report given to Henry NICOLE.
[2019-01-05 08:00] VITALS: BP 106/69
[2019-01-05 08:00] LABS: ALANINE AMINOTRANSFERASE 12 U/L (12-78); ALBUMIN 1.7 G/DL (3.4-5.0); ALBUMIN/GLOBULIN RATIO 0.4 (1.0-2.7); ALKALINE PHOSPHATASE 162 U/L (46-116); ANION GAP 7 mmol/L (5-15); ASPARTATE AMINO TRANSFERASE 45 U/L (15-37); BILIRUBIN,TOTAL 0.7 MG/DL (0.2-1.0); BLOOD UREA NITROGEN 12 mg/dL (7-18); CALCIUM 8.4 MG/DL (8.5-10.1); CARBON DIOXIDE 28 MMOL/L (21-32); CHLORIDE 102 MMOL/L (98-107); CREATININE 0.7 MG/DL (0.55-1.30); POTASSIUM 3.5 MMOL/L (3.5-5.1); SODIUM 137 MMOL/L (136-145)
--- NOTE | 2019-01-05 08:29 | NUR ---
NURSE NOTES: Pt in room walking around, was NPO he was put back on a low Na diet, Pt Ox4 calm and cooperative, he is expecting to be d/c today, pt denies pain, pt on room air, pt makes needs known, no s/s of distress or sob noted.
[2019-01-05] MEDS: Lactulose 10gm/15ml UDC ORAL SCH (10:01)
[2019-01-05] MEDS: Thiamine 100mg tab ORAL SCH (10:01)
[2019-01-05 12:00] VITALS: BP 121/72
[2019-01-05] MEDS ORDERED: FUROSEMIDE20 M1 ORAL (12:50)
[2019-01-05] MEDS ORDERED: LACTULOSE10 GM/155 ORAL (12:50)
--- NOTE | 2019-01-05 12:53 | Discharge Instructions ---
Discharge Instructions Discharge Instructions Diet: 2 GM sodium (low sodium) Resume Normal Activity?: Yes Activity: resume normal activities Follow Up Orders low salt diet avoid alcohol Special Instructions make appointment with Dr. Michael Trujillo GI service For Congestive Heart Failure Reminder Report to your physician any weight gain of 5 pounds or more in one week. Rosalba Armenta MD Jan 05, 2019 12:53
--- NOTE | 2019-01-05 12:57 | Discharge Summary ---
Discharge Summary Hospital Course Date of Admission Jan 02, 2019 at 17:15 Date of Discharge Dec Admitting Diagnosis *ascites, liver cirrhosis HPI Jarenjane Valerio is a 58 year old male who was admitted on Jan 02, 2019 at 17:15 for Ascites. Consultations GI Dr. Trujillo Procedures Ultrasound Liver Impression: Small amount of ascites, apparently reaccumulated since previous day 's paracentesis Hepatomegaly. Hepatic surface nodularity raises concern for cirrhosis Evidence of mild gallbladder wall edema, suspect related to the above. No definite gallstones or colby gallbladder wall thickening. Negative for dilated bile ducts Splenomegaly Note inability to visualize portions of the abdominal aorta PARACENTESIS WITH 10 LT REMOVAL Hospital Course 58-year-old male, who presented to ED due to abdominal pain and distention after a prior hospitalization 3 weeks ago. # Abdominal pain Ddx Ascites due to hepatosplenomegaly with mild surface nodularity suggestive of chronic liver disease. ? alcoholic liver disease vs DIAZ vs other Prior admission hepatitis panel and HIV negative Paracentesis 10 lt completed. Follow up Cytology, cell count, r/o SBP was completed. GI consultation noted. Abdominal ultrasound and diuresis with Furosemide started. Ascites appears to developed rather quickly in 3 weeks and patient denies acute alcohol intake. Low salt diet and diuretic therapy was started and adjusted by GI service to only furosemide ( no spironolactone decided) . Lactulose was added and he is medically stable to discharge with outpatient follow up for possible Fibrotic scan and final plan of care per GI service. Counselling and abstinence from alcohol discussed. # Generalized weakness Recommend PT follow up for mobility # CKD 3 Empiric albumin 5 % due to high volume paracentesis given 01/03 # GI ppx with PPI No prior hematemesis or evidence of portal HTN # FULL CODE Discharge Medications New Medications: Furosemide* (Lasix*) 20 Mg Tablet 20 MG ORAL DAILY for 60 Days, #60 TAB Lactulose (Lactulose) 10 Gm/15 Ml Solution 10 GM ORAL DAILY for 30 Days, #60 GR Continued Medications: Pantoprazole* (Protonix*) 40 Mg Tablet.dr 40 MG ORAL DAILY, TAB Thiamine Hcl* (Vitamin B-1*) 100 Mg Tablet 100 MG ORAL DAILY, #30 TAB 0 Refills Discontinued Medications: No Known Medications* (NKM - No Known Medications*) . 0 . No Known Medications* (NKM - No Known Medications*) . 0 ., 0 Refills Discharge Discharge Disposition Patient was discharged to Discharge Instructions Discharge Instructions Activity: resume normal activities Rosalba Armenta MD Jan 05, 2019 12:57
--- NOTE | 2019-01-05 14:42 | NUR ---
NURSE NOTES: Pt made reaves of discharger order, pt dressed and ready to go home. IV, ID band, and alarm security or surveillance monitor removed. prescriptions given for lasix and lactulose, pt will fill at his own pharmacy. aftercare plan and med recon given. pt waiting ride to get here and pick him up.
--- NOTE | 2019-01-05 15:35 | General Progress Note ---
Assessment/Plan Assessment/Plan: Assessment - EtOH cirrhosis - Ascites - h/o colon polyps - portan HTN - Anemia Recommendations - continue current meds - po as tolerated - d/c planning - outpatient f/u Subjective Allergies: Coded Allergies: No Known Allergies (Unverified , 01/02/19) Subjective Feels better tolerating PO Objective Last 24 Hour Vital Signs Date Time Temp Pulse Resp B/P (MAP) Pulse Ox O2 Delivery O2 Flow Rate FiO2 01/05/19 12:00 98.2 91 17 121/72 (88) 100 01/05/19 11:31 98 01/05/19 08:52 Room Air 01/05/19 08:00 98.5 100 18 106/69 (81) 100 01/05/19 07:51 104 01/05/19 04:00 98.1 89 18 101/63 (76) 01/05/19 04:00 90 01/05/19 00:00 97.8 90 18 109/73 (85) 95 01/05/19 00:00 90 01/04/19 21:00 Room Air 01/04/19 20:00 94 01/04/19 20:00 98.6 95 18 128/87 (101) 95 01/04/19 16:00 98.3 96 18 116/75 (89) 92 01/04/19 16:00 94 Intake and Output 01/04/19 01/05/19 19:00 07:00 # Voids 2 2 Laboratory Tests 01/05/19 05:58: White Blood Count 7.0, Red Blood Count 2.96L, Hemoglobin 9.6L, Hematocrit 29.9L , Mean Corpuscular Volume 101H, Mean Corpuscular Hemoglobin 32.5H, Mean Corpuscular Hemoglobin Concent 32.1, Red Cell Distribution Width 12.1, Platelet Count 164, Mean Platelet Volume 8.3, Neutrophils (%) (Auto) 63.6, Lymphocytes (% ) (Auto) 24.8, Monocytes (%) (Auto) 9.4, Eosinophils (%) (Auto) 1.3, Basophils ( %) (Auto) 0.9, Sodium Level 137, Potassium Level 3.5, Chloride Level 102, Carbon Dioxide Level 28, Anion Gap 7, Blood Urea Nitrogen 12, Creatinine 0.7, Estimat Glomerular Filtration Rate > 60, Glucose Level 101, Calcium Level 8.4L, Total Bilirubin 0.7, Aspartate Amino Transf (AST/SGOT) 45H, Alanine Aminotransferase (ALT/SGPT) 12, Alkaline Phosphatase 162H, Total Protein 6.3L, Albumin 1.7L, Globulin 4.6, Albumin/Globulin Ratio 0.4L, Carcinoembryonic Antigen [Pending], Thyroid Stimulating Hormone (TSH) 4.549H, Free Thyroxine 1.37 Height (Feet): 5 Height (Inches): 5.00 Weight (Pounds): 184 Objective NCAT supple CTA RR abd soft, mildly distended no edema non focal Marv Hadley MD Jan 05, 2019 15:35
--- NOTE | 2019-01-07 11:44 | NUR ---
*-* INSURANCE *-* DISCHARGE SUMMARY HAS BEEN FAXED TO: [facility] NO CURTAIN WORKER ASSIGNED AT THIS TIME.. PLEASE FAX THE REVIEW AND CLINICAL P- [phone]...OPT-1- 3 F- [phone]....REVIEW/CLINICAL
--- NOTE | 2019-01-07 20:49 | Cardiology Report ---
APPROVED REPORT EKG Measurement Heart [id number] CT [id number] Normal sinus rhythm Possible Left atrial enlargement Cannot rule out Anterior infarct, age undetermined Abnormal ECG
== END 2019-01-05 15:25 | disposition home or self-care (01) | DRG 433 ==
LOC: EMR 15:32 → EDBEDREQ 16:14 → INTOOBSV 17:15 → 2E 17:15 → OBSVTOIN 17:15 → EDBEDREQ 19:05
PROC: 0W9G3ZZ Drainage of Peritoneal Cavity, Percutaneous Approach (ICD-10-PCS; principal; 2019-01-03)
DX: K70.31 Alcoholic cirrhosis of liver with ascites (principal); K76.6 Portal hypertension; K31.89 Other diseases of stomach and duodenum; N18.3 Chronic kidney disease, stage 3 (moderate); K57.90 Diverticulosis of intestine, part unspecified, without perforation or abscess without bleeding; Z86.010 Personal history of colon polyps; D64.9 Anemia, unspecified; K75.81 Nonalcoholic steatohepatitis (NASH); F10.20 Alcohol dependence, uncomplicated; K64.8 Other hemorrhoids; K64.4 Residual hemorrhoidal skin tags; K29.50 Unspecified chronic gastritis without bleeding; I12.9 Hypertensive chronic kidney disease with stage 1 through stage 4 chronic kidney disease, or unspecified chronic kidney disease
CPT/HCPCS: 36415; 71045; 74177; 76700; 76942; 80053; 80307; 80329; 81003; 82105; 82140; 82378; 82550; 82553; 83690; 84439; 84443; 84484; 85025; 85610; 85730; 86850; 86900; 86901; 87070; 87086; 87205; 88104; 89051; 93005; 99285

== ENCOUNTER 2019-06-27 16:58 | Inpatient (IN) | payer MEDICAID, OTHER ==
[~2019-06-27] VITALS: Ht 167.6 cm; Wt 77.6 kg
[~2019-06-27 16:58] MED LIST changes: +FUROSEMIDE20 M1 ORAL; +LACTULOSE10 GM/155 ORAL
--- NOTE | 2019-06-27 17:30 | NUR ---
ED Nurse Note: Pt brought into ED w/ shakiness, dizziness, HTN. Pt current BP 170/89. Pt alert and oriented and abulatory with assist. Iv started, blood labs sent, EKG taken, pt set up to monitor. Pt states he has been nauseas and vomiting today.
[2019-06-27 17:42] VITALS: BP 170/82
[2019-06-27 18:24] LABS: EOSINOPHILS % (AUTO) 0.2 % (0.0-3.0); HEMATOCRIT 36.8 % (42.0-52.0); LYMPHOCYTES % (AUTO) 14.3 % (20.0-45.0); MEAN CORPUSCULAR VOLUME 88 FL (80-99); MONOCYTES % (AUTO) 13.7 % (1.0-10.0); NEUTROPHILS % (AUTO) 70.8 % (45.0-75.0); PLATELET COUNT 105 K/UL (150-450); RED BLOOD COUNT 4.16 M/UL (4.70-6.10); RED CELL DISTRIBUTION WIDTH 14.3 % (11.6-14.8); WHITE BLOOD COUNT 5.2 K/UL (4.8-10.8)
--- NOTE | 2019-06-27 18:25 | Emergency Room Report ---
History of Present Illness General Chief Complaint: Hypertension Source: Patient Present Illness HPI This patient has a history of liver cirrhosis. He states he has a history of alcohol abuse and dependence but has not drank alcohol in the past 5 months other than few days ago he had a few drinks. He is accompanied by his who states that she noted around 530 this morning the patient was very "shaky." He was also lightheaded and jittery. He was dry heaving and felt nauseated but had no vomiting. She states he also was having trouble forming words and was stuttering. He denies pain. He states he feels very "shaky and lightheaded." He denies fever. He has had an occasional cough. He denies chest pain. He denies abdominal pain. He has no other complaints. Allergies: Coded Allergies: No Known Allergies (Unverified , 01/02/19) Patient History Past Medical History: see triage record, HTN, other - cirrhosis Social History: Reports: alcohol use - Hx of heavy abuse. Only a few drinks in the past 3 days.; Denies: smoking, drug use Reviewed Nursing Documentation: PMH: Agreed; PSxH: Agreed Nursing Documentation-PMH Past Medical History: No History, Except For Hx Hypertension: Yes Hx Cancer: No Hx Gastrointestinal Problems: No Hx Neurological Problems: No Review of Systems All Other Systems: negative except mentioned in HPI Physical Exam Vital Signs Date Time Temp Pulse Resp B/P (MAP) Pulse Ox O2 Delivery O2 Flow Rate FiO2 06/27/19 17:00 98.4 98 19 182/99 (126) 94 Room Air 06/27/19 17:42 97 Sp02 EP Interpretation: reviewed, normal General Appearance: no apparent distress, alert, GCS 15, non-toxic, other - tremor Head: normocephalic, atraumatic Eyes: bilateral eye normal inspection, bilateral eye PERRL ENT: hearing grossly normal, normal pharynx, no angioedema, normal voice Neck: full range of motion, supple/symm/no masses Respiratory: chest non-tender, lungs clear, normal breath sounds, no respiratory distress, no retraction, no accessory muscle use, speaking full sentences Cardiovascular #1: regular rate, rhythm, no edema Gastrointestinal: normal bowel sounds, non tender, soft, no guarding, no rebound, distended - mild distension, reducible umbilical hernia Rectal: deferred Musculoskeletal: back normal, normal range of motion, gait/station normal, non- tender Neurologic: alert, motor strength/tone normal, oriented x3, sensory intact, responsive, speech normal Psychiatric: judgement/insight normal, memory normal, mood/affect normal, no suicidal/homicidal ideation Skin: no rash, normal color Medical Decision Making Diagnostic Impression: Primary Impression: Alcohol withdrawal Additional Impressions: Ascites Liver cirrhosis ER Course I suspect this patient has alcohol withdrawal. I believe this patient has been drinking alcohol more regularly until 3 days ago. The patient states that he has not been. However, the tremor and hypertension and heart rate are most consistent with alcohol withdrawal. The states that she had been in [place] taking care of some family matters and suspects that he had been drinking. Overall, the patient evaluation is benign. CT of the head is unremarkable. Laboratory work-up is consistent with his known cirrhosis. Ultrasound of the abdomen shows moderate ascites. There is no evidence of SBP. Patient states he cannot sleep and he is very jittery and anxious. I will admit the patient for alcohol withdrawal. He is admitted to telemetry for alcohol withdrawal. Laboratory Tests Test 06/27/19 17:53 06/27/19 19:25 White Blood Count 5.2 K/UL (4.8-10.8) Red Blood Count 4.16 M/UL (4.70-6.10) L Hemoglobin 12.0 G/DL (14.2-18.0) L Hematocrit 36.8 % (42.0-52.0) L Mean Corpuscular Volume 88 FL (80-99) Mean Corpuscular Hemoglobin 28.8 PG (27.0-31.0) Mean Corpuscular Hemoglobin Concent 32.6 G/DL (32.0-36.0) Red Cell Distribution Width 14.3 % (11.6-14.8) Platelet Count 105 K/UL (150-450) L Mean Platelet Volume 7.7 FL (6.5-10.1) Neutrophils (%) (Auto) 70.8 % (45.0-75.0) Lymphocytes (%) (Auto) 14.3 % (20.0-45.0) L Monocytes (%) (Auto) 13.7 % (1.0-10.0) H Eosinophils (%) (Auto) 0.2 % (0.0-3.0) Basophils (%) (Auto) 1.0 % (0.0-2.0) Prothrombin Time 12.0 SEC (9.30-11.50) H Prothrombin Time INR 1.1 (0.9-1.1) PTT 31 SEC (23-33) Sodium Level 138 MMOL/L (136-145) Potassium Level 3.6 MMOL/L (3.5-5.1) Chloride Level 97 MMOL/L (98-107) L Carbon Dioxide Level 25 MMOL/L (21-32) Anion Gap 16 mmol/L (5-15) H Blood Urea Nitrogen 5 mg/dL (7-18) L Creatinine 0.9 MG/DL (0.55-1.30) Estimate Glomerular Filtration Rate > 60 mL/min (>60) Glucose Level 160 MG/DL (74-106) H Calcium Level 8.0 MG/DL (8.5-10.1) L Total Bilirubin 1.1 MG/DL (0.2-1.0) H Direct Bilirubin 0.4 MG/DL (0.0-0.3) H Aspartate Amino Transferase (AST) 160 U/L (15-37) H Alanine Aminotransferase (ALT) 71 U/L (12-78) Alkaline Phosphatase 345 U/L (46-116) H Troponin I 0.001 ng/mL (0.000-0.056) Pro-B-Type Natriuretic Peptide 63 pg/mL (0-125) Total Protein 8.2 G/DL (6.4-8.2) Albumin 3.7 G/DL (3.4-5.0) Globulin 4.5 g/dL Albumin/Globulin Ratio 0.8 (1.0-2.7) L Thyroid Stimulating Hormone (TSH) 2.484 uiU/mL (0.358-3.740) Free Thyroxine 0.89 NG/DL (0.76-1.46) Free Triiodothyronine 2.3 pg/mL (2.3-4.2) Serum Alcohol < 3 mg/dL Urine Color Pending Urine Appearance Pending Urine pH Pending Urine Specific [place] Pending Urine Protein Pending Urine Glucose (UA) Pending Urine Ketones Pending Urine Blood Pending Urine Nitrite Pending Urine Bilirubin Pending Urine Urobilinogen Pending Urine Leukocyte Esterase Pending Ammonia Pending Urine Opiates Screen Pending Urine Barbiturates Screen Pending Phencyclidine (PCP) Screen Pending Urine Amphetamines Screen Pending Urine Benzodiazepines Screen Pending Urine Cocaine Screen Pending Urine Marijuana (THC) Screen Pending EKG Diagnostic Results Rate: normal ST Segments: no acute changes Other Impression NSST findings Rhythm Strip Diag. Results EP Interpretation: yes Rate: 80's Rhythm: NSR, no PVC's, no ectopy CT/MRI/US Diagnostic Results CT/MRI/US Diagnostic Results : Imaging Test Ordered: CT head Impression No acute findings. Specifically no intracranial bleed, mass effect or edema. See official report. Mild mucosal thickening of the left maxillary sinus, frontal sinuses and anterior right ethmoid air cell. Last Vital Signs Date Time Temp Pulse Resp B/P (MAP) Pulse Ox O2 Delivery O2 Flow Rate FiO2 06/27/19 17:42 97 22 Room Air 97 06/27/19 17:42 98.0 170/82 97 Status: improved Disposition: ADMITTED INPATIENT Condition: Serious Mandi Burgess DO Jun 27, 2019 18:25
[2019-06-27 18:41] LABS: ANION GAP 16 mmol/L (5-15); BLOOD UREA NITROGEN 5 mg/dL (7-18); CARBON DIOXIDE 25 MMOL/L (21-32); CHLORIDE 97 MMOL/L (98-107); CREATININE 0.9 MG/DL (0.55-1.30); POTASSIUM 3.6 MMOL/L (3.5-5.1); SODIUM 138 MMOL/L (136-145)
[2019-06-27 18:43] LABS: INR 1.1 (0.9-1.1)
[2019-06-27 18:54] LABS: ALANINE AMINOTRANSFERASE 71 U/L (12-78); ALBUMIN 3.7 G/DL (3.4-5.0); ALBUMIN/GLOBULIN RATIO 0.8 (1.0-2.7); ALKALINE PHOSPHATASE 345 U/L (46-116); ASPARTATE AMINO TRANSFERASE 160 U/L (15-37); BILIRUBIN,TOTAL 1.1 MG/DL (0.2-1.0)
--- NOTE | 2019-06-27 18:54 | Diagnostic Imaging Report ---
Indications: Tremors, dizziness, high blood pressure, nausea, vomiting Technique: Spiral acquisitions obtained through the brain. Angled axial and coronal 5 x 5 mm slices were reconstructed. Total dose length product mGycm. CTDI vol(s) mGy. Dose reduction achieved using automated exposure control Comparison: 03/17/2015 Findings: No acute intracranial hemorrhage or edema. No mass effect nor midline shift. Normal size ventricles and extra axial CSF spaces. Visualized orbits are unremarkable. There is bilateral ethmoid sinus disease. The calvarium is intact. Impression: Negative for acute intracranial bleed or mass effect Sinus disease This agrees with the preliminary interpretation provided overnight by [facility] teleradiology service. The CT scanner at [facility] is accredited by the [employer] and the scans are performed using protocols designed to limit radiation exposure to as low as reasonably achievable to attain images of sufficient resolution adequate for diagnostic evaluation.
[2019-06-27 18:55] LABS: BILIRUBIN,DIRECT 0.4 MG/DL (0.0-0.3)
--- NOTE | 2019-06-27 19:13 | NUR ---
HAND-OFF: Report given to Loly NICOLE.
--- NOTE | 2019-06-27 19:53 | Diagnostic Imaging Report ---
Indication: Abdominal pain and distention Technique: Machado-scale and duplex images of the upper abdomen were obtained Comparison: 01/04/2019 Findings: Gallbladder demonstrates wall thickening and edema. No gallstones. Sonographic Basurto's sign is negative. Common bile duct measures 4 mm in diameter. No intrahepatic biliary ductal dilatation. Liver demonstrates coarsened echogenicity. It demonstrates mild surface nodularity. There is a small amount of ascites fluid present. Portal vein and hepatic veins are patent. Pancreas is unremarkable. Spleen is unremarkable. Left kidney measures 12.4 cm in length. Right kidney measures 13 cm length. Both kidneys demonstrate normal echogenicity. There is no hydronephrosis. No focal abnormality . Non-aneurysmal abdominal aorta . There are bilateral pleural effusions Impression: Coarsened hepatic echogenicity and surface nodularity, consistent with stated clinical history of cirrhosis Ascites, presumably related to the above No gallstones. However, there is gallbladder wall thickening. This is most likely related to the hepatic abnormality, but, the possibility of acute cholecystitis should also be considered, with consideration for hepatobiliary nuclear scan if there is high clinical suspicion Negative for dilated bile ducts Bilateral pleural effusions
[2019-06-27 20:01] LABS: APPEARANCE,URINE CLEAR; BILIRUBIN, URINE NEGATIVE (NEGATIVE); COLOR,URINE PALE YELLOW; GLUCOSE, URINE (UA) NEGATIVE (NEGATIVE); KETONES,URINE NEGATIVE (NEGATIVE); LEUKOCYTE ESTERASE ,URINE NEGATIVE (NEGATIVE); NITRITE,URINE NEGATIVE (NEGATIVE); PH,URINE 8 (4.5-8.0); PROTEIN,URINE NEGATIVE (NEGATIVE); UROBILINOGEN,URINE NORMAL MG/DL (0.0-1.0)
[2019-06-27] MEDS ORDERED: LORazepam 1mg tab ORAL ONE (20:15)
[2019-06-27 20:49] VITALS: BP 149/71
--- NOTE | 2019-06-27 21:00 | NUR ---
ED Nurse Note: Pt resting in bed with eyes closed, no signs of distress, non-labored breathing. Will continue to monitor. Waiting for tele bed
[2019-06-27 22:25] VITALS: BP 152/92
--- NOTE | 2019-06-27 22:40 | NUR ---
TRANSFER TO FLOOR: Patient transferred to as ordered, per DR Azael RN. Report given to BONNIE Cortés . Belongings and medications given to . Family and or S/O informed of transfer.
[2019-06-27 23:00] VITALS: BP 154/96
--- NOTE | 2019-06-27 23:00 | NUR ---
NURSE NOTES: Received pt to tele 216-1. Pt is alert and oriented x4. Belongings checked. Pt has padded siderails for seizure precautions. Pt has unsteady gait on fall precautions. Informed pt to call for assistance and not to get out of bed. oriented to unit and room. In bed, semi fowlers, bed is locked in lowest position, side rails x2, call light in reach, bed alarm on.
--- NOTE | 2019-06-27 23:28 | NUR ---
NURSE NOTES: Contacted MD Addison for admitting orders. Awaiting response.
[2019-06-27] MEDS ORDERED: Morphine Sulfate 2mg/ml Inj(IV/IM USE ONLY) IVP PRN (23:30)
[2019-06-27] MEDS ORDERED: Zolpidem 5mg tab ORAL PRN (23:30)
[2019-06-27] MEDS ORDERED: LORazepam Inj 2mg/ml 1ml IV PRN (23:30)
[2019-06-27] MEDS ORDERED: chlordiazePOXIDE 25mg Cap ORAL PRN (23:30)
[2019-06-27] MEDS ORDERED: Miralax 17gm pkt ORAL PRN (23:30)
[2019-06-28] VITALS (8 sets, daily range): BP systolic 143–186; BP diastolic 80–108
[2019-06-28] MEDS ORDERED: FOLIC ACID IV SCH ×2 (02:00→08:30)
[2019-06-28] MEDS ORDERED: MULTIVITAMIN IV SCH ×2 (02:00→08:30)
[2019-06-28] MEDS ORDERED: THIAMINE HCL IV SCH (02:00)
[2019-06-28] MEDS ORDERED: [UNRECOGNIZED DRUG - OTHER] IV SCH (02:00)
[2019-06-28 04:30] LABS: HEMATOCRIT 37.7 % (42.0-52.0); HEMOGLOBIN 12.2 G/DL (14.2-18.0); MEAN CORPUSCULAR VOLUME 88 FL (80-99); PLATELET COUNT 86 K/UL (150-450); RED BLOOD COUNT 4.29 M/UL (4.70-6.10); RED CELL DISTRIBUTION WIDTH 16.2 % (11.6-14.8); WHITE BLOOD COUNT 3.5 K/UL (4.8-10.8)
[2019-06-28 04:38] LABS: ANION GAP 9 mmol/L (5-15); BLOOD UREA NITROGEN 6 mg/dL (7-18); CALCIUM 8.2 MG/DL (8.5-10.1); CARBON DIOXIDE 31 MMOL/L (21-32); CHLORIDE 98 MMOL/L (98-107); CREATININE 0.9 MG/DL (0.55-1.30); POTASSIUM 3.8 MMOL/L (3.5-5.1); SODIUM 138 MMOL/L (136-145)
[2019-06-28 04:41] LABS: AMMONIA 30 umol/L (11-32)
[2019-06-28 04:49] LABS: ALANINE AMINOTRANSFERASE 58 U/L (12-78); ALBUMIN 3.4 G/DL (3.4-5.0); ALBUMIN/GLOBULIN RATIO 0.7 (1.0-2.7); ALKALINE PHOSPHATASE 343 U/L (46-116); ASPARTATE AMINO TRANSFERASE 117 U/L (15-37); BILIRUBIN,TOTAL 1.2 MG/DL (0.2-1.0)
[2019-06-28 05:13] LABS: BILIRUBIN,DIRECT 0.4 MG/DL (0.0-0.3)
--- NOTE | 2019-06-28 06:42 | NUR ---
NURSE NOTES: Notified , left message that patient has very high blood pressure. While patient said he took no home meds initially, he said he actually stopped taking meds about 1 month ago and that he was on 40 mg lasix daily and also spironolactone [address] Gomez and awaiting response to see if he wants to resume meds from home. Pt agrees he should take them.
--- NOTE | 2019-06-28 07:37 | NUR ---
HAND-OFF: Report given to Henry Lemon RN.
--- NOTE | 2019-06-28 08:03 | NUR ---
NURSE NOTES: Received patient lying in bed. Patient A&Ox4. Pt denies any pain. Breathing normal and unlabored, on room air. Bed low and locked. Call light and bedside table within reach. Will continue plan of care.
[2019-06-28] MEDS ORDERED: NS IV SCH (08:30)
[2019-06-28] MEDS ORDERED: KCL IV SCH (08:30)
[2019-06-28] MEDS ORDERED: Heparin 5000 units/ml inj SUBQ SCH (09:00)
[2019-06-28] MEDS: Thiamine HCl 100 MG in D5W 55 ML IVPB SCH (09:02)
--- NOTE | 2019-06-28 09:46 | NUR ---
Social Work This SW received a consult due to substance abuse. This sW met with patient who explains he is disabled, receiving SSI over 1,000 per month and living with his girlfriend, Becki (who is his primary contact: [phone]). Patient remains alert/oriented and making his own decisions, does not have an Advance Directive, while requesting full code, full treatment. Patient also remains independent, still driving and plans to return home with his girlfriend after discharge. Patient explains he has a history of depression and has a Psychiatrist "on [facility]," but unable to recall his last name, address or phone number at this time. Patient admits to a history of substance abuse (alcohol), stating he quit six months ago, but then used prior to this admission. Patient stating he does not have a drinking problems (no insight into being an alcoholic). This SW discussed with patient the addiction process, while provided substance abuse counseling and treatment information. Patient continues to deny that he has any problems with alcohol, believing his liver problems have caused from other medical difficulties. Patient stating he plans to follow up with his Psychiatrist, with whom he meets with once per month (according to patient). Brief counseling/support provided by this SW. Patient denied any SI/HI at this time, while stating he was feeling depressed lately due to not being able work and his girlfriend was out of town. Psychiatry to follow here, as needed.
--- NOTE | 2019-06-28 09:53 | Diagnostic Imaging Report ---
Indication: Chest pain Technique: One view of the chest Comparison: none Findings: Much better inspiration on the current exam. Lungs and pleural spaces are clear. Heart size is normal. Impression: No acute process
[2019-06-28] MEDS ORDERED: D5W IV SCH (10:00)
[2019-06-28] MEDS ORDERED: MAGNESIUM SULFATE IV SCH (10:00)
--- NOTE | 2019-06-28 12:22 | Consultation ---
History of Present Illness General Date patient seen: Jun 28, 2019 Chief Complaint: Hypertension Present Illness HPI 58 year old male with thx of HTN, cirrhosis, ETOH abuse, not drank alcohol in the past 5 months other than few days ago he had a few drinks, presented to ER with CC of being very "shaky." He was also lightheaded and jittery. She states he also was having trouble forming words and was stuttering. He states he feels very "shaky and lightheaded." His SBP was at 180. He is admitted for pending DT and uncontrolled BP. Allergies: Coded Allergies: No Known Allergies (Unverified , 01/02/19) Medication History Scheduled Furosemide* (Lasix*), 20 MG ORAL DAILY Lactulose (Lactulose), 10 GM ORAL DAILY Pantoprazole* (Protonix*), 40 MG ORAL DAILY, (Reported) Thiamine Hcl* (Vitamin B-1*), 100 MG ORAL DAILY, (Reported) Patient History Healthcare decision maker Resuscitation status Full Code Advanced Directive on File Past Medical/Surgical History Past Medical/Surgical History: (1) History of hypertension (2) Liver cirrhosis Review of Systems All Other Systems: negative except mentioned in HPI Physical Exam General Appearance: WD/WN, no apparent distress Lines, tubes and drains: peripheral HEENT: normocephalic, atraumatic Neck: non-tender, normal alignment, supple Respiratory/Chest: chest wall non-tender, lungs clear, normal breath sounds Cardiovascular/Chest: normal peripheral pulses, normal rate Abdomen: normal bowel sounds Genitourinary/Rectal: normal genital exam Last 24 Hour Vital Signs Date Time Temp Pulse Resp B/P (MAP) Pulse Ox O2 Delivery O2 Flow Rate FiO2 06/28/19 12:00 99.5 75 19 143/82 (102) 96 06/28/19 08:52 Room Air 06/28/19 08:00 98.4 80 19 158/98 (118) 94 06/28/19 04:00 80 06/28/19 04:00 98.2 77 19 159/108 (125) 95 06/28/19 00:00 98.1 81 18 150/88 (108) 95 06/28/19 00:00 73 06/27/19 23:55 Room Air 06/27/19 23:00 98.1 78 18 154/96 (115) 95 06/27/19 22:40 98.2 88 20 152/92 95 Room Air 97 06/27/19 22:25 98.2 88 20 152/92 95 Room Air 06/27/19 20:49 98.2 79 20 149/71 98 Room Air 06/27/19 17:42 97 22 Room Air 97 06/27/19 17:42 98.0 22 170/82 97 Room Air 06/27/19 17:00 98.4 98 19 182/99 (126) 94 Room Air Intake and Output 06/27/19 06/28/19 19:00 07:00 Intake Total 0 ml Balance 0 ml Intake Oral 0 ml # Voids 2 Laboratory Tests Test 06/27/19 17:53 06/27/19 19:25 06/28/19 04:22 White Blood Count 5.2 K/UL (4.8-10.8) 3.5 K/UL (4.8-10.8) L Red Blood Count 4.16 M/UL (4.70-6.10) L 4.29 M/UL (4.70-6.10) L Hemoglobin 12.0 G/DL (14.2-18.0) L 12.2 G/DL (14.2-18.0) L Hematocrit 36.8 % (42.0-52.0) L 37.7 % (42.0-52.0) L Mean Corpuscular Volume 88 FL (80-99) 88 FL (80-99) Mean Corpuscular Hemoglobin 28.8 PG (27.0-31.0) 28.5 PG (27.0-31.0) Mean Corpuscular Hemoglobin Concent 32.6 G/DL (32.0-36.0) 32.4 G/DL (32.0-36.0) Red Cell Distribution Width 14.3 % (11.6-14.8) 16.2 % (11.6-14.8) H Platelet Count 105 K/UL (150-450) L 86 K/UL (150-450) L Mean Platelet Volume 7.7 FL (6.5-10.1) 7.2 FL (6.5-10.1) Neutrophils (%) (Auto) 70.8 % (45.0-75.0) % (45.0-75.0) Lymphocytes (%) (Auto) 14.3 % (20.0-45.0) L % (20.0-45.0) Monocytes (%) (Auto) 13.7 % (1.0-10.0) H % (1.0-10.0) Eosinophils (%) (Auto) 0.2 % (0.0-3.0) % (0.0-3.0) Basophils (%) (Auto) 1.0 % (0.0-2.0) % (0.0-2.0) Prothrombin Time 12.0 SEC (9.30-11.50) H Prothromb Time International Ratio 1.1 (0.9-1.1) Activated Partial Thromboplast Time 31 SEC (23-33) Sodium Level 138 MMOL/L (136-145) 138 MMOL/L (136-145) Potassium Level 3.6 MMOL/L (3.5-5.1) 3.8 MMOL/L (3.5-5.1) Chloride Level 97 MMOL/L (98-107) L 98 MMOL/L (98-107) Carbon Dioxide Level 25 MMOL/L (21-32) 31 MMOL/L (21-32) Anion Gap 16 mmol/L (5-15) H 9 mmol/L (5-15) Blood Urea Nitrogen 5 mg/dL (7-18) L 6 mg/dL (7-18) L Creatinine 0.9 MG/DL (0.55-1.30) 0.9 MG/DL (0.55-1.30) Estimat Glomerular Filtration Rate > 60 mL/min (>60) > 60 mL/min (>60) Glucose Level 160 MG/DL (74-106) H 107 MG/DL (74-106) H Calcium Level 8.0 MG/DL (8.5-10.1) L 8.2 MG/DL (8.5-10.1) L Total Bilirubin 1.1 MG/DL (0.2-1.0) H 1.2 MG/DL (0.2-1.0) H Direct Bilirubin 0.4 MG/DL (0.0-0.3) H 0.4 MG/DL (0.0-0.3) H Aspartate Amino Transf (AST/SGOT) 160 U/L (15-37) H 117 U/L (15-37) H Alanine Aminotransferase (ALT/SGPT) 71 U/L (12-78) 58 U/L (12-78) Alkaline Phosphatase 345 U/L (46-116) H 343 U/L (46-116) H Troponin I 0.001 ng/mL (0.000-0.056) Pro-B-Type Natriuretic Peptide 63 pg/mL (0-125) Total Protein 8.2 G/DL (6.4-8.2) 8.1 G/DL (6.4-8.2) Albumin 3.7 G/DL (3.4-5.0) 3.4 G/DL (3.4-5.0) Globulin 4.5 g/dL 4.7 g/dL Albumin/Globulin Ratio 0.8 (1.0-2.7) L 0.7 (1.0-2.7) L Thyroid Stimulating Hormone (TSH) 2.484 uiU/mL (0.358-3.740) Free Thyroxine 0.89 NG/DL (0.76-1.46) Free Triiodothyronine 2.3 pg/mL (2.3-4.2) Serum Alcohol < 3 mg/dL Urine Color Pale yellow Urine Appearance Clear Urine pH 8 (4.5-8.0) Urine Specific [place] 1.010 (1.005-1.035) Urine Protein Negative (NEGATIVE) Urine Glucose (UA) Negative (NEGATIVE) Urine Ketones Negative (NEGATIVE) Urine Blood 1+ (NEGATIVE) H Urine Nitrite Negative (NEGATIVE) Urine Bilirubin Negative (NEGATIVE) Urine Urobilinogen Normal MG/DL (0.0-1.0) Urine Leukocyte Esterase Negative (NEGATIVE) Urine RBC 5-10 /HPF (0 - 0) H Urine WBC 0-2 /HPF (0 - 0) Urine Squamous Epithelial Cells Few /LPF (NONE/OCC) Urine Bacteria Occasional /HPF (NONE) Urine Opiates Screen Negative (NEGATIVE) Urine Barbiturates Screen Negative (NEGATIVE) Phencyclidine (PCP) Screen Negative (NEGATIVE) Urine Amphetamines Screen Negative (NEGATIVE) Urine Benzodiazepines Screen Negative (NEGATIVE) Urine Cocaine Screen Negative (NEGATIVE) Urine Marijuana (THC) Screen Negative (NEGATIVE) Differential Total Cells Counted 100 Neutrophils % (Manual) 52 % (45-75) Lymphocytes % (Manual) 31 % (20-45) Monocytes % (Manual) 16 % (1-10) H Eosinophils % (Manual) 1 % (0-3) Basophils % (Manual) 0 % (0-2) Band Neutrophils 0 % (0-8) Platelet Estimate Decreased L Platelet Morphology Normal Anisocytosis 1+ Ammonia 30 umol/L (11-32) Height (Feet): 5 Height (Inches): 6.00 Weight (Pounds): 171 Medications Current Medications Medications (Trade) Dose Ordered Sig/Jose Ramon Route PRN Reason Start Time Stop Time Status Last Admin Dose Admin Acetaminophen (Tylenol) 650 mg Q4H PRN ORAL fever 06/27/19 23:30 07/27/19 23:29 Chlordiazepoxide (Librium) 25 mg Q6H PRN ORAL Agitation 06/27/19 23:30 07/04/19 23:29 Dextrose (Dextrose 50%) 25 ml Q30M PRN IV Hypoglycemia 06/27/19 23:30 07/27/19 23:29 Dextrose (Dextrose 50%) 50 ml Q30M PRN IV Hypoglycemia 06/27/19 23:30 07/27/19 23:29 Folic Acid 1 mg/ Multivitamins 10 ml/Potassium Chloride/Sodium Chloride 1,010.2 ml @ 124.383 mls/hr Q24H IV 06/28/19 08:30 07/28/19 08:29 06/28/19 09:02 Furosemide (Lasix) 40 mg DAILY ORAL 06/29/19 09:00 07/29/19 08:59 Lorazepam (Ativan 2mg/ml 1ml) 2 mg EVERY HOUR PRN IV seizures 06/27/19 23:30 07/04/19 23:29 Magnesium Sulfate 2000 mg/Dextrose 59 ml @ 100 mls/hr Q24H IV 06/28/19 10:00 07/28/19 09:59 06/28/19 09:01 Morphine Sulfate (Morphine Sulfate) 1 mg EVERY 4 HOURS PRN IVP For Pain 06/27/19 23:30 07/04/19 23:29 Ondansetron HCl (Zofran) 4 mg Q6H PRN IVP Nausea & Vomiting 06/27/19 23:30 07/27/19 23:29 Polyethylene Glycol (Miralax) 17 gm HSPRN PRN ORAL Constipation 06/27/19 23:30 07/27/19 23:29 Spironolactone (Aldactone) 25 mg DAILY ORAL 06/29/19 09:00 07/29/19 08:59 Thiamine HCl 100 mg/Dextrose 56 ml @ 100 mls/hr Q24H IVPB 06/28/19 09:00 07/28/19 08:59 06/28/19 09:02 Zolpidem Tartrate (Ambien) 5 mg HSPRN PRN ORAL Insomnia 06/27/19 23:30 07/04/19 23:29 Assessment/Plan Problem List: (1) Uncontrolled hypertension ICD Codes: I10 - Essential (primary) hypertension SNOMED: 43249052, 73509570 (2) Alcohol withdrawal ICD Codes: F10.239 - Alcohol dependence with withdrawal, unspecified SNOMED: 982683474 (3) Alcoholism ICD Codes: F10.20 - Alcohol dependence, uncomplicated SNOMED: 1866244 (4) Liver cirrhosis ICD Codes: K74.60 - Unspecified cirrhosis of liver SNOMED: 59105819 (5) History of hypertension ICD Codes: Z86.79 - Personal history of other diseases of the circulatory system SNOMED: 020613336 Assessment/Plan: banana bag with folic acid and Thiamine iv fluids Librium monitor BP resume antidepressants dvt prophylaxis. Nikolai Gomez MD Jun 28, 2019 12:22
--- NOTE | 2019-06-28 12:22 | NUR ---
CASE MANAGEMENT: 58 Y/O MALE FROM HOME CC: HYPERTENSION SI: ETHANOL WITHDRAWAL 98.4 19 182/99 94% ON RA WBC 12.0 PLT 105 PT 12.0 CL- 97 AST 160 ALK PHOS 345 IS: ATIVAN 1 MG PO ABD US~ PLEURAL EFFUSIONS CT HEAD ~ NEGATIVE CXR ~NEGATIVE ~~~~~TELEMETRY 2 EAST
--- NOTE | 2019-06-28 15:14 | History & Physical ---
History and Physical History & Physicial Cristóbal Addison MD Jun 28, 2019 15:14
--- NOTE | 2019-06-28 16:30 | History and Physical Report ---
DATE OF ADMISSION: 06/27/2019 CHIEF COMPLAINT: Shaking and uncontrolled high blood pressure. HISTORY OF PRESENT ILLNESS: This is a 58-year-old Com[place]an-speaking gentleman with past medical history significant for alcoholism with liver cirrhosis, hypertension, morbid obesity who presented to the emergency department complaining about shaking, history of alcohol dependency. He states he has not been drinking for past 5 months and few days ago he had a few drinks. He presented to the emergency room accompanied with his , noted around 05:30 in the morning the patient was very shaky. He was also lightheaded and jittery. He was dry heaving and felt nauseated but had no vomiting. The patient has been trouble forming words, stuttering. Denies any pain. Feels very shaking and lightheadedness. He denies any fever, chills, occasional cough. Denies any chest pain or abdominal pain. Shortly after initial evaluation in the emergency department, the patient was admitted to the hospital with alcohol withdrawal as well as ascites. PAST MEDICAL HISTORY AND PAST SURGICAL HISTORY: As above history of hypertension, morbid obesity, history of alcoholism. MEDICATIONS: At home, please refer to medication reconciliation. ALLERGIES: No known drug allergies. SOCIAL HISTORY: The patient has history of alcohol abuse. Denies any substance abuse. Lives with his . FAMILY HISTORY: Noncontributory. REVIEW OF SYSTEMS: Mostly as above. PHYSICAL EXAMINATION: VITAL SIGNS: On admission, temperature 98.4, pulse of 98, respiration 19, blood pressure 182/99. GENERAL: The patient is awake and responsive, in no acute distress, mildly anxious. HEAD AND NECK: Pupils are equal and react to light. Extraocular movements intact. Neck was supple. No JVD. LUNGS: Good air entry with no wheezing or rales. HEART: S1 and S2. Regular rhythm. No murmur or gallops. ABDOMEN: Soft, nondistended, and nontender. Morbidly obese. EXTREMITIES: No cyanosis, clubbing, or edema. NEUROLOGIC: Cranial nerves II through XII grossly intact. Motor is 5/5 in all extremities. Gait is intact. RECTAL/GENITOURINARY: Refused and deferred. PSYCHIATRIC: Mood and affect is intact. LABORATORY AND DIAGNOSTIC DATA: On admission, WBC of 5.2, hemoglobin 12, hematocrit 36, platelet is 105. Sodium 138, potassium 2.6, chloride 97, bicarb 25, BUN 5, and creatinine 0.9, and glucose is 160. Alkaline phosphatase 345. First troponin 0.01. TSH is 2.48, T3 2.3, T4 0.9. PT of 12, INR 1.1, PTT of 31. UA is +1 blood, 5 to 10 rbc's. Urine drug screen is negative. Alcohol level is less than 3. The patient had a chest x-ray, no acute process. CT of the head was done, negative for acute intracranial or mass, sinus disease. Ultrasound abdomen noted to have coarse hepatic echogenicity with surface nodularity consistent with cirrhosis, mild ascites, no gallstone; however, there is a gallbladder wall thickening, this most likely related to the hepatic abnormality. ASSESSMENT: 1. Anxiety, jittery, and restlessness, most likely secondary to alcohol withdrawal. 2. Uncontrolled hypertension. 3. Morbid obesity. 4. Alcoholism. 5. Liver cirrhosis, mild ascites. 6. Thrombocytopenia PLAN: 1. Admit the patient to monitored unit. 2. We will follow up with Dr. Gomez, Critical Care consultation. 3. Monitor laboratory. 4. Follow up blood pressure closely. 5. Code status, Full code. 6. DVT prophylaxis, SCD. We can avoid heparin due to the patient's thrombocytopenia. We will continue on Librium for alcohol withdrawal. Cristóbal Addison M.D. DR: Patrica JOB#: [id number] CC:
[2019-06-28] MEDS: NS w/KCl 20mEq 1000ml 1,000 ML IV SCH (17:06)
--- NOTE | 2019-06-28 19:06 | NUR ---
HAND-OFF: Report given to BONNIE Rosenberg. Pt in stable condition. Endorsed plan of care.
--- NOTE | 2019-06-28 19:30 | NUR ---
NURSE NOTES: Received patient sitting up in bed. Pt is alert and oriented x4, on room air. Belongings checked. Pt has padded side rails for seizure precautions, alcohol withdrawal. Pt has unsteady gait on fall precautions, slightly shaky and tremor in hands. Informed pt to call for assistance and not to get out of bed. Bed is locked in lowest position, side rails x2, call light in reach, bed alarm on.
[2019-06-28] MEDS ORDERED: SPIRONOLACTONE100 MG ORAL (19:42)
[2019-06-28] MEDS ORDERED: FUROSEMIDE40 MG ORAL (19:42)
[2019-06-28] MEDS ORDERED: LORazepam Inj 2mg/ml 1ml IV PRN (22:30)
--- NOTE | 2019-06-28 22:30 | NUR ---
NURSE NOTES: Called MD Gomez and Azael as pt BP is extremely elevated, received orders and input . will continue to monitor pt
[2019-06-29] VITALS: BP 151/96
[2019-06-29] MEDS: NS w/KCl 20mEq 1000ml 1,000 ML IV SCH ×3 (01:00→20:09)
[2019-06-29 04:00] VITALS: BP 150/90
--- NOTE | 2019-06-29 06:00 | NUR ---
NURSE NOTES: Pt was wandering in the cardenas. He was asked to stay in one spot or to be in his room. Pt is unable to consistently follow directions. Asked patient to sit in hallway where he could be seen.
--- NOTE | 2019-06-29 06:25 | NUR ---
NURSE NOTES: Notified MD Gomez that patient was not in his room and we were looking for him.
--- NOTE | 2019-06-29 06:50 | NUR ---
NURSE NOTES: Pt is in his room sitting with his . Call light within reach. In no acute distress on room air, is talking with the patient.
--- NOTE | 2019-06-29 07:12 | Pulmonology Progress Note ---
Assessment/Plan Problems: (1) Uncontrolled hypertension (2) Alcohol withdrawal (3) Alcoholism (4) Liver cirrhosis (5) History of hypertension Assessment/Plan he ran away and came back to floor was confused earlier check ammonia level, His cirrhosis doesn't seem to be very severe, PT is normal monitor BP might need psych consult. Subjective ROS Limited/Unobtainable: No Constitutional: Reports: no symptoms HEENT: Repors: no symptoms Allergies: Coded Allergies: No Known Allergies (Unverified , 01/02/19) Objective Last 24 Hour Vital Signs Date Time Temp Pulse Resp B/P (MAP) Pulse Ox O2 Delivery O2 Flow Rate FiO2 06/29/19 04:00 98.6 89 20 150/90 (110) 98 06/29/19 00:00 73 06/29/19 00:00 96.6 67 19 151/96 (114) 97 06/28/19 23:35 162/100 (120) 06/28/19 23:13 178/118 06/28/19 23:05 186/104 (131) 06/28/19 21:00 Room Air 06/28/19 20:00 96.6 67 19 170/90 (116) 97 06/28/19 16:44 77 06/28/19 16:00 96.6 67 19 161/80 (107) 97 06/28/19 12:00 99.5 75 19 143/82 (102) 96 06/28/19 11:41 75 06/28/19 08:52 Room Air 06/28/19 08:00 98.4 80 19 158/98 (118) 94 06/28/19 07:44 87 Intake and Output 06/28/19 06/29/19 19:00 07:00 Intake Total 390 ml 300 ml Output Total 600 ml Balance -210 ml 300 ml Intake Oral 140 ml IV Total 250 ml Other 300 ml Output Urine Total 600 ml # Voids 3 3 Objective General Appearance: WD/WN, no apparent distress Lines, tubes and drains: peripheral HEENT: normocephalic, atraumatic Neck: non-tender, normal alignment, supple Respiratory/Chest: chest wall non-tender, lungs clear, normal breath sounds Cardiovascular/Chest: normal peripheral pulses, normal rate Abdomen: normal bowel sounds Genitourinary/Rectal: normal genital exam Current Medications Medications (Trade) Dose Ordered Sig/Jose Ramon Route PRN Reason Start Time Stop Time Status Last Admin Dose Admin Acetaminophen (Tylenol) 650 mg Q4H PRN ORAL fever 06/27/19 23:30 07/27/19 23:29 Amlodipine Besylate (Norvasc) 5 mg DAILY ORAL 06/29/19 09:00 07/29/19 08:59 Chlordiazepoxide (Librium) 25 mg Q6H PRN ORAL Agitation 06/27/19 23:30 07/04/19 23:29 06/28/19 21:24 Clonidine HCl (Catapres Tab) 0.1 mg EVERY 6 HOURS PRN ORAL SBP >160 06/28/19 22:30 07/28/19 22:29 06/28/19 23:13 Dextrose (Dextrose 50%) 25 ml Q30M PRN IV Hypoglycemia 06/27/19 23:30 07/27/19 23:29 Dextrose (Dextrose 50%) 50 ml Q30M PRN IV Hypoglycemia 06/27/19 23:30 07/27/19 23:29 Folic Acid 1 mg/ Multivitamins 10 ml/Magnesium Sulfate 2000 mg/ Potassium Chloride/Sodium Chloride 1,014.2 ml @ 124.876 mls/hr Q24H IV 06/29/19 09:00 07/29/19 08:59 Furosemide (Lasix) 20 mg DAILY ORAL 06/29/19 09:00 07/29/19 08:59 Lorazepam (Ativan 2mg/ml 1ml) 1 mg Q4H PRN IV For Anxiety 06/28/19 22:30 07/05/19 22:29 06/29/19 00:01 Lorazepam (Ativan 2mg/ml 1ml) 2 mg EVERY HOUR PRN IV seizures 06/27/19 23:30 07/04/19 23:29 Morphine Sulfate (Morphine Sulfate) 1 mg EVERY 4 HOURS PRN IVP For Pain 06/27/19 23:30 07/04/19 23:29 Ondansetron HCl (Zofran) 4 mg Q6H PRN IVP Nausea & Vomiting 06/27/19 23:30 07/27/19 23:29 Paroxetine HCl (Paxil) 20 mg DAILY ORAL 06/29/19 09:00 07/29/19 08:59 Polyethylene Glycol (Miralax) 17 gm HSPRN PRN ORAL Constipation 06/27/19 23:30 07/27/19 23:29 Potassium Chloride/Sodium Chloride 1,000 ml @ 125 mls/hr Q8H IV 06/28/19 17:00 07/28/19 16:59 06/28/19 17:06 Spironolactone (Aldactone) 25 mg DAILY ORAL 06/29/19 09:00 07/29/19 08:59 Thiamine HCl 100 mg/Dextrose 56 ml @ 100 mls/hr Q24H IVPB 06/28/19 09:00 07/28/19 08:59 06/28/19 09:02 Zolpidem Tartrate (Ambien) 5 mg HSPRN PRN ORAL Insomnia 06/27/19 23:30 07/04/19 23:29 Nikolai Gomez MD Jun 29, 2019 07:12
[2019-06-29 08:00] VITALS: BP 182/114
[2019-06-29] MEDS: MULTIVITAMIN IV SCH ×4 (09:00)
[2019-06-29] MEDS: Thiamine HCl 100 MG in D5W 55 ML IVPB SCH (09:00)
[2019-06-29] MEDS: FOLIC ACID IV SCH ×4 (09:00)
[2019-06-29] MEDS: SODIUM CHLORIDE IV SCH ×4 (09:00)
[2019-06-29] MEDS ORDERED: Spironolactone 25mg tab ORAL SCH (09:00)
[2019-06-29] MEDS ORDERED: PARoxetine 20mg tab ORAL SCH (09:00)
[2019-06-29] MEDS: MAGNESIUM SULFATE 2 GM IV SCH ×4 (09:00)
[2019-06-29] MEDS ORDERED: Furosemide 40mg tab ORAL SCH ×2 (09:00)
[2019-06-29] MEDS: POTASSIUM CHLORIDE IV SCH ×4 (09:00)
--- NOTE | 2019-06-29 09:19 | NUR ---
HAND-OFF: Report given to BONNIE Diaz
[2019-06-29 12:00] VITALS: BP 137/80
--- NOTE | 2019-06-29 15:46 | Internal Med Progress Note ---
Subjective Date of Service: Jun 29, 2019 Physician Name TraceeRafael Attending Physician Cristóbal Addison MD Current Medications Medications (Trade) Dose Ordered Sig/Jose Ramon Route PRN Reason Start Time Stop Time Status Last Admin Dose Admin Acetaminophen (Tylenol) 650 mg Q4H PRN ORAL fever 06/27/19 23:30 07/27/19 23:29 Amlodipine Besylate (Norvasc) 5 mg DAILY ORAL 06/29/19 09:00 07/29/19 08:59 06/29/19 08:27 Chlordiazepoxide (Librium) 25 mg Q6H PRN ORAL Agitation 06/27/19 23:30 07/04/19 23:29 06/28/19 21:24 Clonidine HCl (Catapres Tab) 0.1 mg EVERY 6 HOURS PRN ORAL SBP >160 06/28/19 22:30 07/28/19 22:29 06/29/19 08:28 Dextrose (Dextrose 50%) 25 ml Q30M PRN IV Hypoglycemia 06/27/19 23:30 07/27/19 23:29 Dextrose (Dextrose 50%) 50 ml Q30M PRN IV Hypoglycemia 06/27/19 23:30 07/27/19 23:29 Folic Acid 1 mg/ Multivitamins 10 ml/Magnesium Sulfate 2000 mg/ Potassium Chloride/Sodium Chloride 1,014.2 ml @ 124.876 mls/hr Q24H IV 06/29/19 09:00 07/29/19 08:59 06/29/19 09:00 Furosemide (Lasix) 20 mg DAILY ORAL 06/29/19 09:00 07/29/19 08:59 06/29/19 08:29 Lorazepam (Ativan 2mg/ml 1ml) 1 mg Q4H PRN IV For Anxiety 06/28/19 22:30 07/05/19 22:29 06/29/19 00:01 Lorazepam (Ativan 2mg/ml 1ml) 2 mg EVERY HOUR PRN IV seizures 06/27/19 23:30 07/04/19 23:29 Morphine Sulfate (Morphine Sulfate) 1 mg EVERY 4 HOURS PRN IVP For Pain 06/27/19 23:30 07/04/19 23:29 Ondansetron HCl (Zofran) 4 mg Q6H PRN IVP Nausea & Vomiting 1/9/20 23:30 07/27/19 23:29 Paroxetine HCl (Paxil) 20 mg DAILY ORAL 06/29/19 09:00 07/29/19 08:59 06/29/19 08:28 Polyethylene Glycol (Miralax) 17 gm HSPRN PRN ORAL Constipation 06/27/19 23:30 07/27/19 23:29 Potassium Chloride/Sodium Chloride 1,000 ml @ 125 mls/hr Q8H IV 06/28/19 17:00 07/28/19 16:59 06/28/19 17:06 Spironolactone (Aldactone) 25 mg DAILY ORAL 06/29/19 09:00 07/29/19 08:59 06/29/19 08:29 Thiamine HCl 100 mg/Dextrose 56 ml @ 100 mls/hr Q24H IVPB 06/28/19 09:00 07/28/19 08:59 06/29/19 09:00 Zolpidem Tartrate (Ambien) 5 mg HSPRN PRN ORAL Insomnia 06/27/19 23:30 07/04/19 23:29 Allergies: Coded Allergies: No Known Allergies (Unverified , 01/02/19) ROS Limited/Unobtainable: No Constitutional: Reports: no symptoms HEENT: Reports: no symptoms Cardiovascular: Reports: no symptoms Respiratory: Reports: no symptoms Gastrointestinal/Abdominal: Reports: no symptoms Genitourinary: Reports: no symptoms Neurologic/Psychiatric: Reports: no symptoms Subjective 58 YO M admitted with acute alcohol withdrawal and uncontrolled hypertension. Cover for Int Arsenio- Dr Addison Objective Last Vital Signs Date Time Temp Pulse Resp B/P (MAP) Pulse Ox O2 Delivery O2 Flow Rate FiO2 06/29/19 08:28 162/110 06/29/19 08:27 75 06/29/19 04:00 98.6 20 98 06/28/19 21:00 Room Air 06/27/19 22:40 97 General Appearance: WD/WN, alert, mild distress EENT: PERRL/EOMI, normal ENT inspection, TMs normal Neck: non-tender, normal alignment, supple, normal inspection Cardiovascular: normal peripheral pulses, normal rate, regular rhythm, no gallop/murmur, no JVD Respiratory/Chest: chest wall non-tender, lungs clear, normal breath sounds, no respiratory distress, no accessory muscle use Abdomen: normal bowel sounds, non tender, soft, no organomegaly, no mass Extremities: normal range of motion, non-tender Neurologic: superintendent institution II-XII grossly normal, no motor/sensory deficits, other - resting tremor Skin: normal pigmentation, warm/dry Intake and Output 06/28/19 06/29/19 18:59 06:59 Intake Total 390 ml 300 ml Output Total 600 ml Balance -210 ml 300 ml Intake Oral 140 ml IV Total 250 ml Other 300 ml Output Urine Total 600 ml # Voids 3 3 Assessment/Plan Problem List: (1) Alcohol dependence (2) Alcohol withdrawal Assessment & Plan: continue prn ativan (3) Uncontrolled hypertension Assessment & Plan: Continue norvasc and clonidine (4) Liver cirrhosis (5) Ascites Rafael Easley MD Jun 29, 2019 15:46
[2019-06-29 16:00] VITALS: BP 138/76
--- NOTE | 2019-06-29 19:20 | NUR ---
NURSE NOTES: Received report from Joe Victor RN at tele unit. PT is calm and comfortable. AO x2 sometimes confused. Denies any pain. call light is within reach. Rails are up x3.
[2019-06-29 20:00] VITALS: BP 156/80
[2019-06-30] VITALS: BP 159/92
[2019-06-30] MEDS: NS w/KCl 20mEq 1000ml 1,000 ML IV SCH (01:00)
--- NOTE | 2019-06-30 03:00 | NUR ---
NURSE NOTES: Patient DCed iv line. Patient said, "I am done. I dont need this any more. I am good right now".
--- NOTE | 2019-06-30 06:58 | Pulmonology Progress Note ---
Assessment/Plan Problems: (1) Uncontrolled hypertension (2) Alcohol withdrawal (3) Alcoholism (4) Liver cirrhosis (5) History of hypertension Assessment/Plan no new complains sitting on a chair in the floor was confused earlier check ammonia level, His cirrhosis doesn't seem to be very severe, PT is normal monitor BP might need psych consult. med/surg Subjective ROS Limited/Unobtainable: Yes Constitutional: Reports: no symptoms HEENT: Repors: no symptoms Allergies: Coded Allergies: No Known Allergies (Unverified , 01/02/19) Objective Last 24 Hour Vital Signs Date Time Temp Pulse Resp B/P (MAP) Pulse Ox O2 Delivery O2 Flow Rate FiO2 06/30/19 00:00 97.0 75 20 159/92 (114) 96 06/29/19 21:00 Room Air 06/29/19 20:00 98.6 77 18 156/80 (105) 94 06/29/19 16:00 98.6 82 19 138/76 (96) 97 06/29/19 12:00 98.6 78 20 137/80 (99) 99 06/29/19 09:00 Room Air 06/29/19 08:28 162/110 06/29/19 08:27 75 162/110 06/29/19 08:00 97.7 105 18 182/114 (136) 98 Intake and Output 06/29/19 06/30/19 19:00 07:00 Intake Total 140 ml Output Total 980 ml Balance -840 ml Intake Oral 140 ml Output Urine Total 980 ml # Voids 3 3 # Bowel Movements 1 Objective General Appearance: WD/WN, no apparent distress Lines, tubes and drains: peripheral HEENT: normocephalic, atraumatic Neck: non-tender, normal alignment, supple Respiratory/Chest: chest wall non-tender, lungs clear, normal breath sounds Cardiovascular/Chest: normal peripheral pulses, normal rate Abdomen: normal bowel sounds Genitourinary/Rectal: normal genital exam Current Medications Medications (Trade) Dose Ordered Sig/Jose Ramon Route PRN Reason Start Time Stop Time Status Last Admin Dose Admin Acetaminophen (Tylenol) 650 mg Q4H PRN ORAL fever 06/27/19 23:30 07/27/19 23:29 Amlodipine Besylate (Norvasc) 5 mg DAILY ORAL 06/29/19 09:00 07/29/19 08:59 06/29/19 08:27 Chlordiazepoxide (Librium) 25 mg Q6H PRN ORAL Agitation 06/27/19 23:30 07/04/19 23:29 06/28/19 21:24 Clonidine HCl (Catapres Tab) 0.1 mg EVERY 6 HOURS PRN ORAL SBP >160 06/28/19 22:30 07/28/19 22:29 06/29/19 08:28 Dextrose (Dextrose 50%) 25 ml Q30M PRN IV Hypoglycemia 06/27/19 23:30 07/27/19 23:29 Dextrose (Dextrose 50%) 50 ml Q30M PRN IV Hypoglycemia 06/27/19 23:30 07/27/19 23:29 Folic Acid 1 mg/ Multivitamins 10 ml/Magnesium Sulfate 2000 mg/ Potassium Chloride/Sodium Chloride 1,014.2 ml @ 124.876 mls/hr Q24H IV 06/29/19 09:00 07/29/19 08:59 06/29/19 09:00 Furosemide (Lasix) 20 mg DAILY ORAL 06/29/19 09:00 07/29/19 08:59 06/29/19 08:29 Lorazepam (Ativan 2mg/ml 1ml) 1 mg Q4H PRN IV For Anxiety 06/28/19 22:30 07/05/19 22:29 06/29/19 00:01 Lorazepam (Ativan 2mg/ml 1ml) 2 mg EVERY HOUR PRN IV seizures 06/27/19 23:30 07/04/19 23:29 Morphine Sulfate (Morphine Sulfate) 1 mg EVERY 4 HOURS PRN IVP For Pain 06/27/19 23:30 07/04/19 23:29 Ondansetron HCl (Zofran) 4 mg Q6H PRN IVP Nausea & Vomiting 06/27/19 23:30 07/27/19 23:29 Paroxetine HCl (Paxil) 20 mg DAILY ORAL 06/29/19 09:00 07/29/19 08:59 06/29/19 08:28 Polyethylene Glycol (Miralax) 17 gm HSPRN PRN ORAL Constipation 06/27/19 23:30 07/27/19 23:29 Potassium Chloride/Sodium Chloride 1,000 ml @ 125 mls/hr Q8H IV 06/28/19 17:00 07/28/19 16:59 06/29/19 20:09 Spironolactone (Aldactone) 25 mg DAILY ORAL 06/29/19 09:00 07/29/19 08:59 06/29/19 08:29 Thiamine HCl 100 mg/Dextrose 56 ml @ 100 mls/hr Q24H IVPB 06/28/19 09:00 07/28/19 08:59 06/29/19 09:00 Zolpidem Tartrate (Ambien) 5 mg HSPRN PRN ORAL Insomnia 06/27/19 23:30 07/04/19 23:29 Nikolai Gomez MD Jun 30, 2019 06:58
--- NOTE | 2019-06-30 07:47 | NUR ---
HAND-OFF: Report given to Blayne Dyson nurse. Pt is walking around nursing station.
--- NOTE | 2019-06-30 08:00 | NUR ---
Patient ambulating up & down the hallway. Pacing, becoming agitated. Refusing to go back to his Room. Refusing to have vital signs check. Stated he's done, and wants to go home now. Patient on the Phone with his . [place] Speaking Nurse Spoke with Patients , and stated patients will call [employer] for patient. Explained to patient his doctor have not discharged him as of yet, explained to patient, If he wants to leave, he needs to sign out against medical advice, Patient understood, both [place] and [place] Nurse also explained it to him in his language. Signed AMA form. Patient was wearing his clothes, he has his phone with him. all belongings accounted for. ambulatory with steady gait.
--- NOTE | 2019-07-02 08:58 | Discharge Summary ---
Discharge Summary Discharge Summary _ DATE OF ADMISSION: 06/27/2019 DATE OF DISCHARGE: 06/30/2019 DISCHARGED BY: Dr. Addison REASON FOR ADMISSION: 68 years old male with past medical history significant for ETOH abuse, liver cirrhosis, hypertension, presented to emergency department complaining of shaking. Patient had not been drinking for the past few months , but recently had some drinks. Patient was lightheaded, jittery and very shaky. He felt nauseated, but no vomiting. Patient was having trouble forming words , and speech was stuttered. He denied any pain. He denied fever and chills. He denied chest pain or abdominal pain. Upon evaluation in emergency department blood pressure was significantly elevated 182/99 , pulse oximetry was stable on room air . Patient was afebrile . Laboratory work-up revealed no leukocytosis ,hemoglobin 12, hematocrit 36.8. Platelet count 105. INR 1.1. Stable electrolytes and renal parameters. Glucose 160. Total bilirubin 1.1, direct bilirubin 0.4. AST 160, ALT 71. Troponin negative , pro BNP 63. EKG revealed sinus rhythm, no acute ischemic changes. TSH within normal limits . Serum alcohol level less than 3. CT of the head revealed no acute intracranial pathology. Urinalysis revealed no evidence of urinary tract infection. Chest x-ray revealed no acute cardiopulmonary pathology . Abdominal ultrasound demonstrated coarsened hepatic echogenicity and surface nodularity , consistent with clinical history of cirrhosis. Ascites, presumably related to the above. No gallstones. Gallbladder wall thickening noted. Most likely due to hepatic abnormalities. No dilated bile ducts. Bilateral pleural effusion. Patient was subsequently admitted for alcohol withdrawal CONSULTANTS: pulmonary/coding and reimbursement specialist Dr. Gomez HOSPITAL COURSE: Patient admitted to telemetry floor and started on IV fluids with multivitamins , folic acid and thiamine. CIWA protocol initiated. Librium and Ativan were on board as needed. Supportive care provided. Blood pressure was managed with calcium channel valeria; clonidine was on board as well for blood pressure spikes. Blood pressure improved. GI prophylaxis provided. IV fluids subsequently stopped. Patient started on Aldactone and Lasix with close monitoring of volumes. Ammonia was within normal limits. Bowel regimen instituted. Supportive care provided . Patient was strongly advised on abstinence from ETOH. On 06/30 patient felt better . He improved symptomatically and decided to leave AGAINST MEDICAL ADVICE. The risks and consequences of signing AGAINST MEDICAL ADVICE were discussed with patient in detail. Patient verbalized understanding, nevertheless signed AMA form and left. FINAL DIAGNOSES: Uncontrolled hypertension with initial hypertensive urgency- improved Alcohol dependency Alcohol withdrawal Liver cirrhosis Ascites I have been assigned to dictate discharge summary for this account. I was not involved in the patient's management. Pilar Real NP Jul 02, 2019 08:58
--- NOTE | 2019-07-03 13:09 | NUR ---
*--* INSURANCE *-* ALL CLINICALS AND REVIEWS HAVE BEEN FAXED TO: [employer] f: [phone]
== END 2019-06-30 08:30 | disposition left against medical advice (07) | DRG 305 ==
LOC: EMR 17:30 → 2E 20:35 → EDBEDREQ 22:12
DX: I16.0 Hypertensive urgency (principal); F10.239 Alcohol dependence with withdrawal, unspecified; R18.8 Other ascites; K74.60 Unspecified cirrhosis of liver; I10 Essential (primary) hypertension
CPT/HCPCS: 36415; 70450; 71045; 76700; 80053; 80307; 81003; 82140; 82248; 83880; 84439; 84443; 84481; 84484; 85007; 85025; 85610; 85730; 93005; 93306; 96374; 99285; G0480; J2405